=== PATIENT | female | born 1965 | race Caucasian/White ===

== ENCOUNTER 2016-05-17 07:27 | Day surgery (SDC) | payer OTHER ==
[2016-05-16 16:14] VITALS: BMI 39.2
[2016-05-17] VITALS (10 sets, daily range): BP systolic 103–129; BP diastolic 51–79; PULSE 70–86; RESP 8–41; Ht 144.8 cm; Wt 89.8 kg
[~2016-05-17] VITALS: Ht 144.8 cm; Wt 89.8 kg
[~2016-05-17 07:27] MED LIST: ALBU8.5H5 IH; ASPI81TA3 PO; ATOR40TA68 PO; AZIT250T94 PO; CETI5SOL PO; CHOL400C PO; FLUC150T41 PO; GABA300C16 PO; INSU100C SQ; INSU300I SQ; MONT10TA24 PO; OMEP20CA16 PO; SOD CHLORIDE 0.9% 1,000 ML IV ONE
[2016-05-17] MEDS ORDERED: ESCI20TA38 PO (08:58)
[2016-05-17] MEDS ORDERED: ERGO500014 PO (09:03)
[2016-05-17] MEDS ORDERED: GABA300C16 PO (09:07)
[2016-05-17] MEDS ORDERED: MOME13HF INHALATION (09:12)
[2016-05-17] MEDS ORDERED: TRAZ50TA18 PO (09:13)
[2016-05-17] MEDS ORDERED: VENL37.59 PO (09:15)
[2016-05-17] MEDS ORDERED: METF-382 PO (09:16)
[2016-05-17] MEDS ORDERED: SOD CHLORIDE 0.9% 1,000 ML IV ONE (11:00)
[2016-05-17] MEDS ORDERED: BUPIVACAINE 0.25% (MPF) 30 ML INJ ONE (12:48)
[2016-05-17] MEDS ORDERED: MIDAZOLAM 1 MG/ML 2 ML INJ ONE (13:08)
[2016-05-17] MEDS ORDERED: PROPOFOL 20 ML ONE (13:08)
[2016-05-17] MEDS ORDERED: METOCLOPRAMIDE 10 MG INJ ONE (13:11)
[2016-05-17] MEDS ORDERED: ONDANSETRON 4 MG INJ IV PRN (13:30)
[2016-05-17] MEDS ORDERED: HYDROmorphONE (0.2 MG/ML) 10ML SYG IV PRN ×3 (13:30)
[2016-05-17] MEDS ORDERED: DIPHENHYDRAMINE 50 MG INJ IV PRN (13:30)
[2016-05-17] MEDS ORDERED: MEPERIDINE 25 MG INJ IV PRN (13:30)
[2016-05-17] MEDS ORDERED: METOCLOPRAMIDE 10 MG INJ IV PRN (13:30)
[2016-05-17] MEDS ORDERED: BUPIVACAINE 0.25% (MPF) 30 ML INJ INJ ONE (13:46)
[2016-05-17] MEDS ORDERED: ACETAMINOPHEN 325 MG TAB PO ONE (14:00)
[2016-05-17] MEDS ORDERED: CEFAZOLIN 1 GM INJ ONE (14:10)
--- NOTE | 2016-05-17 14:10 | OPR ---
DATE OF OPERATION: 05/17/2016 INDICATION: This is a 51-year-old female found on mammography to have a lesion in the right breast. She requests surgical excision of her right breast lesion. Risks, alternatives, benefits, and pers onnel were discussed with the patient. Patient expressed understanding and consents to the operatio n. PREOPERATIVE DIAGNOSIS: Right breast lesion. POSTOPERATIVE DIAGNOSIS: Right breast lesion. OPERATION PERFORMED: 1. Right needle localized breast biopsy with 5 cm size incision and 4 x 5 cm size mass. 2. Localized adjacent tissue transfer with the use of skin flaps. SURGEON: Connie Dallas MD SPECIMEN: Right breast biopsy. COMPLICATIONS: None. ANESTHESIA: General. PROCEDURE: The patient was taken to the OR, prepped and draped in the usual sterile fashion. Surgi yue timeout was performed. IV antibiotics were given. Mammographic imaging is reviewed. A curvili near incision is made in the right upper areola with a 15 blade. Dissection cautery was carried ruel n following the needle and circumferentially excised with the lesion endoclip. There was good hemos tasis. Due to the large tissue defect localized tissue transfer with the use of skin flaps was perf ormed. Multilayer closure with interrupted 3-0 Vicryl and running 4-0 Monocryl. Local anesthesia w as injected. Dry dressings were applied. Dictated By: CONNIE PHELAN/FREDY Conf#: [id number] DID#: [id number]
[2016-05-17] MEDS ORDERED: morphine (1 MG/ML) 10ML SYRINGE IV ONE (14:22)
[2016-05-17] MEDS: morphine (1 MG/ML) 10ML SYRINGE IV PRN ×2 (14:28→14:39)
[2016-05-17] MEDS ORDERED: morphine (1 MG/ML) 10ML SYRINGE IV PRN ×2 (14:30)
[2016-05-17] MEDS ORDERED: HYDROCODONE/APAP (10/325) TAB PO ONE (15:30)
== END 2016-05-17 16:00 | disposition home or self-care (01) ==
LOC: SDS 07:27
PROVIDERS: ATTEND Surgery
DX: N62 Hypertrophy of breast (principal); N60.41 Mammary duct ectasia of right breast; E11.9 Type 2 diabetes mellitus without complications; I10 Essential (primary) hypertension; E66.01 Morbid (severe) obesity due to excess calories; Z68.41 Body mass index [BMI] 40.0-44.9, adult
CPT/HCPCS: 19120; 82962; 84703; 88307; J0690; J1170; J1200; J2250; J2270; J2765; Z7512; Z7610

== ENCOUNTER 2016-06-07 17:14 | Emergency (ER) | payer OTHER ==
[~2016-06-07] VITALS: Wt 90.0 kg
[~2016-06-07 17:14] MED LIST changes: -ATOR40TA68 PO; -AZIT250T94 PO; -CETI5SOL PO; -CHOL400C PO; +ERGO500014 PO; +ESCI20TA38 PO; -FLUC150T41 PO; +METF-382 PO; +MOME13HF INHALATION; -OMEP20CA16 PO; -SOD CHLORIDE 0.9% 1,000 ML IV ONE; +TRAZ50TA18 PO; +VENL37.59 PO
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
[2016-06-07] MEDS ORDERED: HYDROCODONE/APAP (5/325) TAB PO ONE (18:30)
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
--- NOTE | 2016-06-07 19:35 | RADRPT ---
PROCEDURE: XR Chest. CLINICAL INDICATION: Chest pain TECHNIQUE: Single view of the chest COMPARISON: Chest radiograph April 03, 2016 FINDINGS: The lungs are clear. The heart size is normal. There is no pleural effusion. There is no pneumothorax. There is no acute osseous abnormality. IMPRESSION: 1. No acute cardiopulmonary findings. RPTAT: UU .Juan Daniel Ozuna MD, MD Date Time Electronically viewed and signed by .Juan Daniel Ozuna MD, on 06/07/2016 19:34 .K/
[2016-06-07] MEDS ORDERED: HYDR-906 PO (21:44)
--- NOTE | 2016-06-07 21:45 | RADRPT ---
PROCEDURE: Ultrasound right breast CLINICAL INDICATION: Right breast pain. TECHNIQUE: Sonographic evaluation of the right breast was performed with avelar scale imaging. Imag es were reviewed on a high-resolution PACS workstation. COMPARISON: None available FINDINGS: Evaluation of the right breast reveals no focal fluid collection or abscess. No mass lesion is seen . No other abnormality is identified. IMPRESSION: 1. This study cannot adequately exclude the presence of breast cancer. 2. Negative right breast ultrasound. No abnormality is identified. RPTAT: HMJB .Nikita De La O MD, MD Date Time Electronically viewed and signed by .Nikita De La O MD, on 06/07/2016 21:45 .B/
[2016-06-07 22:07] VITALS: BP 117/60; PULSE 78; RESP 22; TEMP 97.8
== END 2016-06-07 22:09 | disposition home or self-care (01) ==
LOC: FTE 17:14
DX: S49.91XA Unspecified injury of right shoulder and upper arm, initial encounter (principal); S29.091A Other injury of muscle and tendon of front wall of thorax, initial encounter; J45.909 Unspecified asthma, uncomplicated; E11.9 Type 2 diabetes mellitus without complications; V49.49XA Driver injured in collision with other motor vehicles in traffic accident, initial encounter; Z79.84 Long term (current) use of oral hypoglycemic drugs; Z79.82 Long term (current) use of aspirin; Z79.4 Long term (current) use of insulin
CPT/HCPCS: 71010; 73030; 76642; Z7502; Z7610

== ENCOUNTER 2016-07-27 20:08 | Emergency (ER) | payer OTHER ==
[~2016-07-27] VITALS: Ht 149.9 cm; Wt 87.5 kg
[~2016-07-27 20:08] MED LIST changes: +HYDR-906 PO
[2016-07-27 20:36] VITALS: Ht 149.9 cm; Wt 87.5 kg
[2016-07-27] MEDS ORDERED: FAMOTIDINE 20 MG INJ IV STA (21:13)
[2016-07-27] MEDS ORDERED: SOD CHLORIDE 0.9% 1,000 ML IV STA (21:13)
[2016-07-27] MEDS ORDERED: ONDANSETRON 4 MG INJ IV STA (21:13)
[2016-07-27] MEDS ORDERED: morphine 4 MG/ML VIAL IV STA (21:13)
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
[2016-07-27 21:52] LABS: ADD SCAN DIFF NO
[2016-07-27 22:02] LABS: BASOPHILS % 0.3 % (0.0-2.0); EOSINOPHILS # 0.3 10^3/ul (0.0-0.5); EOSINOPHILS % 1.8 % (0.0-7.0); HEMATOCRIT 35.3 % (37.0-47.0); HEMOGLOBIN 10.8 g/dl (12.0-16.0); LYMPHOCYTES # 4.1 10^3/ul (0.8-2.9); LYMPHOCYTES % 27.1 % (15.0-51.0); MEAN CORPUSCULAR HEMOGLOBIN 24.3 pg (29.0-33.0); MEAN CORPUSCULAR HGB CONC 30.6 g/dl (32.0-37.0); MEAN CORPUSCULAR VOLUME 79.3 fl (82.0-101.0); MEAN PLATELET VOLUME 10.4 fl (7.4-10.4); MONOCYTE # 0.8 10^3/ul (0.3-0.9); MONOCYTES % 5.5 % (0.0-11.0); PLATELET COUNT 322 10^3/UL (140-415); RED BLOOD COUNT 4.45 10^6/ul (4.20-5.40); RED CELL DISTRIBUTION WIDTH 16.3 % (11.5-14.5); WHITE BLOOD COUNT 15.3 10^3/ul (4.8-10.8)
[2016-07-27 22:09] LABS: URINE BILIRUBIN (Dip) NEGATIVE (NEGATIVE); URINE BLOOD (Dip) NEGATIVE (NEGATIVE); URINE GLUCOSE (Dip) NEGATIVE (NEGATIVE); URINE KETONES (Dip) NEGATIVE (NEGATIVE); URINE LEUKOCYTE ESTERASE (Dip) NEGATIVE (NEGATIVE); URINE NITRITE (Dip) NEGATIVE (NEGATIVE); URINE TOTAL PROTEIN (Dip) NEGATIVE (NEGATIVE); URINE UROBILINOGEN (Dip) 0.2 E.U./dL (0.1-1.0)
[2016-07-27 22:16] LABS: ALBUMIN 3.6 g/dl (3.3-4.9)
[2016-07-27 22:17] LABS: ADD UMIC YES; POTASSIUM 3.8 mmol/L (3.5-5.1); URINE COLOR YELLOW (YELLOW)
[2016-07-27 22:19] LABS: ALBUMIN/GLOBULIN RATIO 0.87; BACTERIA,URINE MANY; BILIRUBIN,INDIRECT 0.1 mg/dl (0-1.1); BILIRUBIN,TOTAL 0.1 mg/dl (0.2-1.3); CREATININE 0.71 mg/dl (0.44-1.00); SQUAMOUS EPITHELIAL CELL,UR MANY; TOTAL PROTEIN 7.7 g/dl (6.1-8.1); URINE RBCS 0-2 /HPF (0)
[2016-07-27 22:20] LABS: CALCIUM 8.7 mg/dl (8.4-10.2)
--- NOTE | 2016-07-27 22:32 | RADRPT ---
PROCEDURE: Portable chest x-ray. CLINICAL INDICATION: Abdominal pain. TECHNIQUE: Portable AP view of the chest. COMPARISON: 06/07/2016. FINDINGS: No pulmonary edema or conolidation is identified. The cardiac silhouette is magnified. No pleural effusion is seen. There is no pneumothorax. There is no pneumoperitoneum. IMPRESSION: 1. No evidence of acute cardiopulmonary disease. 2. No pneumoperitoneum. RPTAT: HTAR .Ger Mccollum MD, MD Date Time Electronically viewed and signed by .Ger Mccollum MD, on 07/27/2016 22:31 .R/
[2016-07-27 22:51] VITALS: BP 117/68; PULSE 96; RESP 15
[2016-07-27] MEDS ORDERED: BACTDS PO (23:12)
[2016-07-27] MEDS ORDERED: ONDA4TAB8 PO (23:13)
[2016-07-27] MEDS ORDERED: TRAM50TA2 PO (23:14)
[2016-07-27] MEDS ORDERED: PHEN-538 PO (23:14)
--- NOTE | 2016-07-27 23:25 | RADRPT ---
PROCEDURE: CT abdomen and pelvis without contrast. CLINICAL INDICATION: Abdominal pain, bilateral flank pain, nausea vomiting and diarrhea TECHNIQUE: CT scan of the abdomen and pelvis without contrast was performed. Sagittal and coronal reformatted images were obtained from the axial source images. CTDI = 22.83 mGy; DLP = 1242.82 mGy- cm COMPARISON: 03/04/2015 FINDINGS: Visualized lower thorax: The lung bases are clear. There is no evidence for pleural effusion. Liver, gallbladder, pancreas and spleen: Hepatomegaly of 22 cm is again noted with diffuse severe h epatic steatosis, the liver contour is preserved. There is no evidence for a liver mass or ductal d ilatation. The gallbladder is unremarkable. No common bile duct abnormality is demonstrated. The pancreas is unremarkable. The spleen is normal in size. Adrenal glands and genitourinary system: The adrenal glands are normal bilaterally. The kidneys are normal and size, contour and attenuation with no evidence for masses, calculi or hydronephrosis. T he ureters are unremarkable. No urinary bladder abnormality is demonstrated. The uterus and adnexa are unremarkable. There is no evidence of free fluid in the cul-de-sac. Gastrointestinal system: The stomach is normal in caliber with no abnormality of significance. The small bowel is normal in caliber with no ileus, obstruction or wall thickening. The appendix is not visualized but there is no stranding of the fat in the right lower quadrant. The colon shows no ev idence for wall thickening or acute abnormality. There is no evidence for colitis or diverticulitis . Peritoneum, retroperitoneum, lymph nodes and vessels: The abdominal aorta is normal in caliber. The re is no evidence for atherosclerotic calcification. The inferior vena cava is unremarkable. There is no evidence for adenopathy or mass. There is no ascites. Osseous structures and musculoskeletal findings: There is no fracture, lytic or blastic lesion. Co pious subcutaneous adipose tissue is again noted. No muscular pathology is seen. RPTAT:HJJR IMPRESSION: 1. Stable hepatomegaly hepatic steatosis. 2. No evidence of acute intra-abdominal or intrapelvic pathology, the study is unchanged from 03/04. Franco Ruiz, Physician Date Time Electronically viewed and signed by Franco Ruiz, Physician on 07/27/2016 23:25 /
[2016-07-27] MEDS ORDERED: CEFTRIAXONE 1 GM/50 ML (PMX) 50 ML IVPB ONE (23:30)
== END 2016-07-27 23:53 | disposition home or self-care (01) ==
LOC: E/R 20:08
DX: R10.12 Left upper quadrant pain (principal); D72.829 Elevated white blood cell count, unspecified; N30.00 Acute cystitis without hematuria; E11.9 Type 2 diabetes mellitus without complications; I10 Essential (primary) hypertension; J45.909 Unspecified asthma, uncomplicated; R11.0 Nausea; Z79.4 Long term (current) use of insulin; Z79.84 Long term (current) use of oral hypoglycemic drugs; Z79.82 Long term (current) use of aspirin
CPT/HCPCS: 36415; 71010; 74176; 80053; 81001; 83690; 85025; 87086; 96374; 96375; J0696; J2270; J2405; J7030; Z7502; Z7610; 81003

== ENCOUNTER 2016-09-14 11:40 | Emergency (ER) | payer OTHER ==
[~2016-09-14] VITALS: Ht 157.5 cm; Wt 58.8 kg
[~2016-09-14 11:40] MED LIST changes: +BACTDS PO; -METF-382 PO; +METF500T4 PO; +ONDA4TAB8 PO; +PHEN-538 PO; +TRAM50TA2 PO
[2016-09-14 11:54] VITALS: Ht 157.5 cm; Wt 58.8 kg
[2016-09-14] MEDS ORDERED: ACET500C5 PO (12:23)
[2016-09-14] MEDS ORDERED: LIDOCAINE 1% (MDV) 20 ML INJ SC ONE (12:30)
[2016-09-14] MEDS ORDERED: IBUPROFEN 600 MG TAB PO ONE (12:30)
[2016-09-14] MEDS ORDERED: DIPHTH/TET/ACEL PERTUSS (ADULT) 0.5 ML VIAL IM* ONE (12:30)
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
== END 2016-09-14 12:50 | disposition home or self-care (01) ==
LOC: FTE 11:40
DX: S81.811A Laceration without foreign body, right lower leg, initial encounter (principal); I10 Essential (primary) hypertension; J45.909 Unspecified asthma, uncomplicated; E11.9 Type 2 diabetes mellitus without complications; W25.XXXA Contact with sharp glass, initial encounter; Y92.009 Unspecified place in unspecified non-institutional (private) residence as the place of occurrence of the external cause; Z79.84 Long term (current) use of oral hypoglycemic drugs; Z79.82 Long term (current) use of aspirin; Z79.4 Long term (current) use of insulin; Z23 Encounter for immunization
CPT/HCPCS: 12001; 90471; 90715; Z7502; Z7610

== ENCOUNTER 2016-09-29 23:35 | Emergency (ER) | payer SELFPAY ==
[~2016-09-29] VITALS: Ht 149.9 cm; Wt 92.5 kg
[~2016-09-29 23:35] MED LIST changes: +ACET500C5 PO
[2016-09-29 23:58] VITALS: Ht 149.9 cm; Wt 92.5 kg
== END 2016-09-30 03:36 | disposition left against medical advice (07) ==
LOC: E/R 23:35
DX: Z53.21 Procedure and treatment not carried out due to patient leaving prior to being seen by health care provider (principal)

== ENCOUNTER 2016-10-19 22:49 | Emergency (ER) | payer OTHER ==
[~2016-10-19] VITALS: Wt 90.5 kg
[2016-10-20] MEDS ORDERED: ALPRAZOLAM 0.25 MG TAB PO ONE (01:00)
[2016-10-20 02:02] LABS: ADD SCAN DIFF NO
[2016-10-20 02:08] LABS: BASOPHILS % 0.3 % (0.0-2.0); EOSINOPHILS # 0.4 10^3/ul (0.0-0.5); EOSINOPHILS % 3.4 % (0.0-7.0); HEMATOCRIT 35.9 % (37.0-47.0); LYMPHOCYTES # 4.8 10^3/ul (0.8-2.9); LYMPHOCYTES % 38.5 % (15.0-51.0); MEAN CORPUSCULAR HEMOGLOBIN 23.7 pg (29.0-33.0); MEAN CORPUSCULAR HGB CONC 30.6 g/dl (32.0-37.0); MEAN CORPUSCULAR VOLUME 77.2 fl (82.0-101.0); MONOCYTE # 0.7 10^3/ul (0.3-0.9); MONOCYTES % 5.5 % (0.0-11.0); NEUTROPHIL # 6.4 10^3/ul (1.6-7.5); NEUTROPHILS % 52.1 % (39.0-77.0); PLATELET COUNT 319 10^3/UL (140-415); RED BLOOD COUNT 4.65 10^6/ul (4.20-5.40); RED CELL DISTRIBUTION WIDTH 16.5 % (11.5-14.5); WHITE BLOOD COUNT 12.4 10^3/ul (4.8-10.8)
[2016-10-20 02:40] LABS: ALANINE AMINOTRANSFERASE 57 IU/L (13-69); ALBUMIN 4.4 g/dl (3.3-4.9); ALBUMIN/GLOBULIN RATIO 1.18; ALKALINE PHOSPHATASE 251 IU/L (42-121); ANION GAP 13 (8-16); ASPARTATE AMINO TRANSFERASE 45 IU/L (15-46); BILIRUBIN,INDIRECT 0.2 mg/dl (0-1.1); BILIRUBIN,TOTAL 0.2 mg/dl (0.2-1.3); BLOOD UREA NITROGEN 13 mg/dl (7-20); CALCIUM 9.2 mg/dl (8.4-10.2); CARBON DIOXIDE 28 mmol/L (21-31); CHLORIDE 101 mmol/L (97-110); CREATININE 0.74 mg/dl (0.44-1.00); POTASSIUM 4.2 mmol/L (3.5-5.1); SODIUM 138 mmol/L (135-144); TOTAL PROTEIN 8.1 g/dl (6.1-8.1)
[2016-10-20 02:53] LABS: B-TYPE NATRIURETIC PEPTIDE < 11 PG/ML (0-125); TROPONIN-I < 0.012 ng/ml (0.00-0.12)
[2016-10-20 02:56] LABS: GLUCOSE 425 mg/dl (70-220)
[2016-10-20] MEDS ORDERED: SOD CHLORIDE 0.9% 1,000 ML IV ONE (05:00)
[2016-10-20] MEDS ORDERED: LIDOCAINE/MYLANTA 40 ML BTL PO ONE (05:00)
[2016-10-20] MEDS ORDERED: NYSTATIN 15 GM CR TOP ONE (05:00)
[2016-10-20 05:30] VITALS: BP 114/67; PULSE 76; RESP 16
[2016-10-20] MEDS ORDERED: RANI150T9 PO (05:47)
[2016-10-20] MEDS ORDERED: NYST1POW22 TOPICAL (05:47)
[2016-10-20] MEDS ORDERED: NYST15CR28 TOP (05:47)
[2016-10-20] MEDS ORDERED: NAPR-688 PO (05:48)
[2016-10-20] MEDS ORDERED: HYDR-906 PO (05:48)
[2016-10-20] MEDS ORDERED: CEPH-443 PO (05:59)
[2016-10-20] MEDS ORDERED: FLUCONAZOLE 150 MG TAB PO ONE (06:00)
--- NOTE | 2016-10-20 06:12 | ERD ---
ER Documentation Chief Complaint Date/Time DATE: 10/20/16 TIME: 06:01 Chief Complaint Pelvic pain, vaginal bleed, anal inflamation. CP HPI This 51-year-old female comes in for burning sensation around her vaginal area and anal area. This been going on for several days now. Also complains of chest pain described as a burning sensation. She is taking omeprazole currently for this. Not sure if she has dysuria because the area the surface around her vaginal and rectal area liriano when she pees. Denies shortness of breath though she does have a history of asthma and is on inhaled beta agonists as well as inhaled steroids. No nausea or vomiting. No fever or chills. ROS All systems reviewed and are negative except as per history of present illness. Medications Home Meds Active Scripts Cephalexin* (Keflex*) 500 Mg Capsule, 500 MG PO TID for 5 Days, CAP Prov:SALLY TREVIZO DO 10/20/16 Hydrocodone/Acetaminophen (Rising Sun 5-325 Tablet) 1 Each Tablet, 1 EACH PO Q6, #14 TAB Prov:SALLY TREVIZO DO 10/20/16 Naproxen* (Naproxen*) 500 Mg Tablet, 500 MG PO BID Y for PAIN, #14 TAB Prov:SALLY TREVIZO DO 10/20/16 Ranitidine Hcl* (Zantac*) 150 Mg Tablet, 150 MG PO BID, #60 TAB Prov:SALLY TREVIZO DO 10/20/16 Nystatin (Nystatin Powder) 1 Each Powder.ea., 1 APPLIC TOPICAL BID, #1 BOTTLE Prov:SALLY TERVIZO DO 10/20/16 Nystatin* (Nystatin*) 15 Gm Cr, 1 APPLIC TOP TID for 7 Days, TUB Prov:SALLY TREVIZO DO 10/20/16 Acetaminophen* (Tylophen*) 500 Mg Capsule, 1 CAP PO Q6H Y for PAIN AND OR ELEVATED TEMP, #20 CAP Prov:DIANE RODNEY NP 09/14/16 Phenazopyridine Hcl* (Pyridium*) 200 Mg Tab, 200 MG PO TID Y for URINARY PAIN, # 9 TAB 0 Refills Prov:SHARIF NOYOLA 07/27/16 Tramadol HCl (Tramadol HCl) 50 Mg Tablet, 100 MG PO Q6 Y for PAIN, #20 TAB 0 Refills Prov:SHARIF NOYOLA 07/27/16 Ondansetron Hcl* (Zofran*) 4 Mg Tablet, 4 MG PO Q8, #20 TAB 0 Refills Prov:SHARIF NOYOLA 07/27/16 Sulfamethoxazole-Trimethoprim* (Bactrim* DS) 800-160 Mg Tab, 1 TAB PO DAILY for 7 Days, TAB 0 Refills Prov:SHAIRF NOYOLA 07/27/16 Hydrocodone/Acetaminophen (Rising Sun 5-325 Tablet) 1 Each Tablet, 1 EACH PO Q6, #10 TAB Prov:GALINA MOCTEZUMA PA-C 06/07/16 Reported Medications Metformin Hcl* (Metformin Hcl*) 500 Mg Tablet, 500 MG PO WITH BREAKFAST DINNE, # 30 TAB 05/17/16 Venlafaxine Hcl* (Effexor XR*) 37.5 Mg Tab.er.24, 37.5 MG PO TID, TAB 05/17/16 Trazodone Hcl* (Trazodone Hcl*) 50 Mg Tablet, 25 MG PO QHS, #30 TAB 05/17/16 Mometasone-Formoterol (Dulera) 200-5 Mcg/Inh - 13 Gm Hfa.aer.ad, 2 PUFFS INHALATION BID, #1 INHALER 05/17/16 Gabapentin* (Gabapentin*) 300 Mg Capsule, 300 MG PO QHS, #60 CAP 05/17/16 Ergocalciferol* (Drisdol* (Vitamin D2)) 50,000 Unit Capsule, 59463 UNIT PO Q7D, CAP 05/17/16 Escitalopram Oxalate* (Escitalopram Oxalate*) 20 Mg Tablet, 20 MG PO DAILY, #30 TAB 05/17/16 Insulin Glargine,Hum.rec.anlog (Tousamuel Solostar) 300 Unit/1 Ml Insuln.pen, 72 UNIT SQ QHS 04/03/16 Insulin Lispro (Humalog) 100 Unit/1 Ml Cartridge, 16 UNIT SQ BEFORE MEALS 04/03/16 Montelukast Sodium* (Montelukast Sodium*) 10 Mg Tablet, 10 MG PO QHS, #30 TAB 04/03/16 Albuterol Sulfate* (Albuterol Sulfate* HFA) 8.5 Gm Hfa.aer.ad, 2 PUFF IH Q6, EA 04/02/14 Aspirin* (Aspirin* Chew) 81 Mg Tab.chew, 81 MG PO DAILY, TAB.CHEW 11/13/13 Allergies Allergies: Coded Allergies: hydromorphone (Verified Allergy, Intermediate, ITCHING, 05/17/16) celecoxib (Verified Allergy, Unknown, SOB, 05/17/16) ciprofloxacin (Unverified Allergy, Unknown, RASH, 05/17/16) PMhx/Soc History of Surgery: Yes (APPY,C SECTION X1,COLONOSCOPY,UPPER ENDOSCOPY, ANGIOGRAM) Anesthesia Reaction: No Hx Neurological Disorder: No Hx Respiratory Disorders: Yes (ASTHMA, BRONCHITIS, PNEUMONIA) Hx Cardiac Disorders: Yes (DC, HTN, HIGH CHOLESTEROL) Hx Psychiatric Problems: Yes (PANIC ATTACK) Hx Miscellaneous Medical Probl: Yes (DM) Hx Alcohol Use: No Hx Substance Use: No Hx Tobacco Use: No Smoking Status: Never smoker Physical Exam Vitals Vital Signs Date Time Temp Pulse Resp B/P Pulse Ox O2 Delivery O2 Flow Rate FiO2 10/20/16 05:30 76 16 114/67 100 Nasal Cannula 10/20/16 04:00 86 20 114/67 100 Nasal Cannula 4.0 10/20/16 03:00 83 20 112/74 97 Room Air 10/20/16 02:41 88 16 106/75 99 Nasal Cannula 3.0 10/20/16 01:20 Nasal Cannula 3 10/19/16 23:29 99.2 95 22 122/73 96 Physical Exam Const: [] No distress Head: Atraumatic Eyes: Normal Conjunctiva ENT: Normal External Ears, Nose and Mouth. Neck: Full range of motion..~ No meningismus. Resp: Clear to auscultation bilaterally Cardio: Regular rate and rhythm, no murmurs Abd: Soft, very mild epigastric tenderness without guarding or rebound, non distended. Normal bowel sounds Genital/rectal exam: Erythematous rash with satellite lesions consistent with Louise shunting skin of vagina and anus. No discharge. Back: No midline or flank tenderness Ext: No cyanosis, or edema Neur: Awake and alert and oriented 3, no focal deficits Psych: Normal Mood and Affect Result Diagram: 10/20/16 0134 10/20/16 0134 Results 24 hrs Laboratory Tests Test 10/20/16 01:34 10/20/16 05:57 White Blood Count 12.410^3/ul Red Blood Count 4.6510^6/ul Hemoglobin 11.0g/dl Hematocrit 35.9% Mean Corpuscular Volume 77.2fl Mean Corpuscular Hemoglobin 23.7pg Mean Corpuscular Hemoglobin Concent 30.6g/dl Red Cell Distribution Width 16.5% Platelet Count 08582^3/UL Mean Platelet Volume 10.0fl Neutrophils % 52.1% Lymphocytes % 38.5% Monocytes % 5.5% Eosinophils % 3.4% Basophils % 0.3% Nucleated Red Blood Cells % 0.0/100WBC Neutrophils # 6.410^3/ul Lymphocytes # 4.810^3/ul Monocytes # 0.710^3/ul Eosinophils # 0.410^3/ul Basophils # 0.010^3/ul Nucleated Red Blood Cells # 0.010^3/ul Sodium Level 138mmol/L Potassium Level 4.2mmol/L Chloride Level 101mmol/L Carbon Dioxide Level 28mmol/L Anion Gap 13 Blood Urea Nitrogen 13mg/dl Creatinine 0.74mg/dl Glucose Level 425mg/dl Calcium Level 9.2mg/dl Total Bilirubin 0.2mg/dl Direct Bilirubin 0.00mg/dl Indirect Bilirubin 0.2mg/dl Aspartate Amino Transf (AST/SGOT) 45IU/L Alanine Aminotransferase (ALT/SGPT) 57IU/L Alkaline Phosphatase 251IU/L Troponin I < 0.012ng/ml B-Type Natriuretic Peptide < 11PG/ML Total Protein 8.1g/dl Albumin 4.4g/dl Globulin 3.70g/dl Albumin/Globulin Ratio 1.18 Bedside Glucose 325mg/dL Current Medications Medications (Trade) Dose Ordered Sig/Nj Route PRN Reason Start Time Stop Time Status Last Admin Dose Admin Alprazolam (Xanax) 0.5 mg ONCE ONCE PO 10/20/16 01:00 10/20/16 01:01 DC 10/20/16 01:41 Nystatin 1 applic 1 applic ONCE ONCE TOP 10/20/16 05:00 10/20/16 05:01 DC 10/20/16 04:54 Sodium Chloride (NS) 1,000 ml @ 1,000 mls/hr Q1H ONCE IV 10/20/16 05:00 10/20/16 05:59 DC 10/20/16 04:51 Miscellaneous Medication (Gi Cocktail (2)) 40 ml ONCE ONCE PO 10/20/16 05:00 10/20/16 05:01 DC 10/20/16 04:51 Procedures/MDM Chest pain without signs of ischemia along with candidal rash and diabetic hyperglycemia. Patient was unable to provide a urine sample because she urinated without collecting it twice. Is given a liter of normal saline emergency room after which her sugar was Colt down by 100. She was then given additional liter of fluid. She has diabetic medication at home. States that she has a follow-up appoint with her medical office professional instructor as they did remove some polyps during colonoscopy recently. Nystatin cream was applied in the emergency room and she was given Diflucan tablet. They are unable to collect the urine and she has a mildly elevated white blood cell count with some dysuria I am going to discharge her with Keflex as well. Also discharging with nystatin cream, nystatin powder, naproxen and Rising Sun. Follow-up with primary care doctor and medical office professional instructor. Return precautions given. EKG interpretation: Normal sinus rhythm rate of 99, normal axis, no ST or T- wave changes concerning for acute ischemia, normal intervals. Normal EKG bag loader interpretation: Normal sinus rhythm without arrhythmia Chest x-ray interpretation: I see no acute process, no widened mediastinum, no pneumothorax, no infiltrates, no pulmonary edema, no fractures. Departure Diagnosis: Primary Impression: Louise rash of groin Additional Impressions: Chest pain Hyperglycemia due to type 2 diabetes mellitus Condition: Stable Patient Instructions: Louise Skin Infection (Adult), Chest Pain, Uncertain Cause, Diabetic Hyperglycemia Additional Instructions: Llame al doctor MASHAKEEL y zayda lori LAVONNE PARA DENTRO DE 2-3 NI.Dgale a la secretaria que nosotros le instruimos hacer esta lavonne.Avise o llame si maxwell condicin se empeora antes de la lavonne. Regresa aqui si peor o no mejor. SALLY TREVIZO DO Oct 20, 2016 06:12
--- NOTE | 2016-10-20 06:56 | RADRPT ---
PROCEDURE: CHEST - 1 VIEW CLINICAL INDICATION: 51-year-old female with chest pain. TECHNIQUE: A single frontal AP portable view of the chest was performed. The images were reviewed on a PACS workstation. COMPARISON: Chest x-ray July 27, 2016. FINDINGS: The cardiomediastinal silhouette has a normal appearance. There is no evidence for an infiltrate. There is no evidence for congestive heart failure. There is no evidence for pneumothorax. The osseou s structures are intact. IMPRESSION: No evidence for active cardiopulmonary disease. .Jeronimo Avalos MD, MD Date Time Electronically viewed and signed by .Jeronimo Avalos MD, on 10/20/2016 06:56 .M/
== END 2016-10-20 06:34 | disposition home or self-care (01) ==
LOC: E/R 22:49
DX: B37.89 Other sites of candidiasis (principal); R07.9 Chest pain, unspecified; E11.65 Type 2 diabetes mellitus with hyperglycemia; J45.909 Unspecified asthma, uncomplicated; I10 Essential (primary) hypertension; Z79.4 Long term (current) use of insulin; Z79.84 Long term (current) use of oral hypoglycemic drugs; Z79.82 Long term (current) use of aspirin
CPT/HCPCS: 71010; 80053; 82962; 83880; 84484; 85025; J7030; Z7610; 36415; 93005

== ENCOUNTER 2016-12-30 17:15 | Emergency (ER) | payer OTHER ==
[~2016-12-30] VITALS: Ht 154.9 cm; Wt 87.0 kg
[~2016-12-30 17:15] MED LIST changes: +ACYC800T57 PO; +ALBU8.5H3 INH; +AMIT10TA6 PO; +AMO500 PO; +ATOR40TA68 PO; +AZIT250T94 PO; +BENZ100C70 PO; +CAPT25TA3 PO; +CAPT25TA47; +CAPTOPRIL PO; +CEFU500T PO; +CEPH-443 PO; +CETI10CA PO; +CETI5SOL PO; +CHOL400C PO; +CIPR500T4 PO; +CLOT10TR6 MM; +CYCL-319 PO; +DICY10CA60 PO; +DOCU-144 PO; +FLUC10SU2 PO; +FLUC150T41 PO; +FLUCONAZOLE; +FLUT1DIS22 IH; +HYDR-1049 PO; +HYDR-3498 PO; +IBUP-1542 PO; +IBUP400T22 PO; +IBUPROFEN; +IND10 PO; +IPRA14.76; +LAMO100T83 PO; +LEVEM SC; +LEVO500T72; +LEVO500T72 PO; +LORA-408 PO; +LORA10TA3 PO; +LORAZEPAM; +METF-405 PO; +METF500T3; +METF850T PO; +METR500T PO; +NAPR-260 PO; +NAPR-688 PO; +NIT4 SL; +NYST15CR28 TOP; +NYST1POW22 TOPICAL; +NYSTATIN; +OMEP20CA16 PO; +ONDA4TAB35 PO; +OXCA150T43 PO; +OXYC-279 PO; +PANT40TA3 PO; +PRED10TA PO; +RANI150T9 PO; +[UNRECOGNIZED DRUG - CODE] PO; +[UNRECOGNIZED DRUG - CODE] TP
[2016-12-30 17:20] VITALS: Ht 154.9 cm; Wt 87.0 kg
[2016-12-30] MEDS ORDERED: ONDANSETRON (ODT) 4 MG TAB ODT STA (18:10)
[2016-12-30] MEDS ORDERED: KETOROLAC 30 MG INJ IM STA (18:10)
[2016-12-30] MEDS ORDERED: HYDROCODONE/APAP (5/325) TAB PO ONE (18:30)
[2016-12-30] MEDS ORDERED: DEXAMETHASONE 10 MG/ML 1 ML INJ IM ONE (18:30)
[2016-12-30] MEDS ORDERED: NAPR-260 PO (19:12)
[2016-12-30] MEDS ORDERED: HYDR-906 PO (19:13)
[2016-12-30 19:38] VITALS: BP 134/72; PULSE 75; RESP 18; TEMP 98.3
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
== END 2016-12-30 19:30 | disposition home or self-care (01) ==
LOC: MERGE 17:15 → FTE 17:15
DX: M54.9 Dorsalgia, unspecified (principal); M25.50 Pain in unspecified joint; E11.9 Type 2 diabetes mellitus without complications; I10 Essential (primary) hypertension; J45.909 Unspecified asthma, uncomplicated; Z79.4 Long term (current) use of insulin
CPT/HCPCS: 93005; 96372; J1100; J1885; Z7502; Z7610

== ENCOUNTER 2017-04-04 18:53 | Emergency (ER) | payer OTHER ==
[~2017-04-04] VITALS: Ht 160 cm; Wt 85.6 kg
[~2017-04-04 18:53] MED LIST changes: -ACYC800T57 PO; -AMIT10TA6 PO; -AMO500 PO; -ATOR40TA68 PO; -BENZ100C70 PO; -CAPT25TA3 PO; -CAPT25TA47; -CAPTOPRIL PO; -CEFU500T PO; -CETI10CA PO; -CETI5SOL PO; -CHOL400C PO; -CIPR500T4 PO; -CLOT10TR6 MM; -CYCL-319 PO; -DOCU-144 PO; -FLUC10SU2 PO; -FLUC150T41 PO; -FLUCONAZOLE; -FLUT1DIS22 IH; -HYDR-3498 PO; -IBUP-1542 PO; -IBUP400T22 PO; -IBUPROFEN; -IND10 PO; -IPRA14.76; -LAMO100T83 PO; -LEVO500T72; -LEVO500T72 PO; -LORA-408 PO; -LORA10TA3 PO; -LORAZEPAM; -METF-405 PO; -METF500T3; -METF850T PO; -NIT4 SL; -NYSTATIN; -OMEP20CA16 PO; -ONDA4TAB35 PO; -OXCA150T43 PO; -OXYC-279 PO; -PANT40TA3 PO; -PRED10TA PO; -[UNRECOGNIZED DRUG - CODE] PO; -[UNRECOGNIZED DRUG - CODE] TP
[2017-04-04 19:04] VITALS: Ht 160 cm; Wt 85.6 kg
[2017-04-04] MEDS ORDERED: HYDROCODONE/APAP (5/325) TAB PO ONE (22:00)
[2017-04-04 22:20] LABS: ADD UMIC NO; UR ASCORBIC ACID NEGATIVE (NEGATIVE); UR BILIRUBIN (Dip) NEGATIVE (NEGATIVE); UR BLOOD (Dip) NEGATIVE (NEGATIVE); UR CLARITY CLEAR (CLEAR); UR COLOR YELLOW (YELLOW); UR GLUCOSE (Dip) NEGATIVE (NEGATIVE); UR KETONES (Dip) NEGATIVE (NEGATIVE); UR LEUKOCYTE ESTERASE (Dip) NEGATIVE Leu/ul (NEGATIVE); UR NITRITE (Dip) NEGATIVE (NEGATIVE); UR SPECIFIC GRAVITY (Dip) 1.016 (1.003-1.030); UR TOTAL PROTEIN (Dip) NEGATIVE (NEGATIVE); UR UROBILINOGEN (Dip) NEGATIVE (NEGATIVE)
[2017-04-04] MEDS ORDERED: ACET500C5 PO (22:24)
--- NOTE | 2017-04-04 22:44 | ERD ---
ER Documentation Chief Complaint Chief Complaint right shoulder pain, back pain, right foot pain HPI Patient is a 51-year-old female with a past medical history of hypertension, hyperlipidemia, DM type II, showed arthritis, RA, osteoporosis, endometriosis, status post appendectomy presents to the emergency department for concerns of right shoulder pain, right upper back pain and right foot pain. Patient states her symptoms have been ongoing since May 2016. Patient has been seen in the ED for similar complaints in the past. At patient's last visit in December 2016 she stated that she was awaiting an MRI. Patient recently underwent MRI which she brings with her which shows a 5 mm tear of the supraspinatus tendon and fraying of the biceps labral anchor, extensive degenerative tearing through the superior labrum. She also brings in a copy of her MRI of her ankle which shows a large chronic osteochondral injury in the medial talar dome. No displaced or unstable fragments are identified. Patient also had moderate plantar fasciitis. Patient states that her right shoulder pain, right upper back pain and right foot pain are all worse with movement. Patient reports taking tramadol at home for her symptoms. Patient states this medication just makes her sleepy. Patient is compliant with her insulin regimen. Patient denies any abdominal pain, chest pain, shortness of breath, nausea, vomiting, left upper extremity pain, diaphoresis, loss of consciousness. She denies any new falls or trauma to the affected areas. Denies any homicidal or suicidal ideations at this time. Patient does report "water in my uterus" for the last 5 weeks. Patient also reports pain with urination and urinary frequency, however she denies any hematuria. ROS All systems reviewed and are negative except as per history of present illness. Medications Home Meds Active Scripts Acetaminophen* (Tylophen*) 500 Mg Capsule, 1 CAP PO Q6H Y for PAIN AND OR ELEVATED TEMP, #20 CAP Prov:MARIANNA JOHNSON PA-C 04/04/17 Hydrocodone/Acetaminophen ([place] 5-325 Tablet) 1 Each Tablet, 1 TAB PO Q6H Y for PAIN, #12 TAB Prov:LIS ALEJANDRE PA-C 12/30/16 Naproxen* (Naprosyn*) 500 Mg Tablet, 500 MG PO BID Y for PAIN AND/OR INFLAMMATION, #30 TAB Prov:LIS ALEJANDRE PA-C 12/30/16 Cephalexin* (Keflex*) 500 Mg Capsule, 500 MG PO TID for 5 Days, CAP Prov:SALLY TREVIZO DO 10/20/16 Hydrocodone/Acetaminophen ([place] 5-325 Tablet) 1 Each Tablet, 1 EACH PO Q6, #14 TAB Prov:SALLY TREVIZO DO 10/20/16 Naproxen* (Naproxen*) 500 Mg Tablet, 500 MG PO BID Y for PAIN, #14 TAB Prov:SALLY TREVIZO DO 10/20/16 Ranitidine Hcl* (Zantac*) 150 Mg Tablet, 150 MG PO BID, #60 TAB Prov:SALLY TREVIZO DO 10/20/16 Nystatin (Nystatin Powder) 1 Each Powder.ea., 1 APPLIC TOPICAL BID, #1 BOTTLE Prov:SALLY TREVIZO DO 10/20/16 Nystatin* (Nystatin*) 15 Gm Cr, 1 APPLIC TOP TID for 7 Days, TUB Prov:SALLY TREVIZO DO 10/20/16 Acetaminophen* (Tylophen*) 500 Mg Capsule, 1 CAP PO Q6H Y for PAIN AND OR ELEVATED TEMP, #20 CAP Prov:DIANE RODNEY NP 09/14/16 Dicyclomine Hcl* (Bentyl*) 10 Mg Capsule, 10 MG PO QID, #20 CAP Prov:JHONY MAN PA-C 08/02/16 Phenazopyridine Hcl* (Pyridium*) 200 Mg Tab, 200 MG PO TID Y for URINARY PAIN, # 9 TAB 0 Refills Prov:SHARIF NOYOLA 07/27/16 Tramadol HCl (Tramadol HCl) 50 Mg Tablet, 100 MG PO Q6 Y for PAIN, #20 TAB 0 Refills Prov:SHARIF NOYOLA 07/27/16 Ondansetron Hcl* (Zofran*) 4 Mg Tablet, 4 MG PO Q8, #20 TAB 0 Refills Prov:SHARIF NOYOLA 07/27/16 Sulfamethoxazole-Trimethoprim* (Bactrim* DS) 800-160 Mg Tab, 1 TAB PO DAILY for 7 Days, TAB 0 Refills Prov:SHARIF NOYOLA 07/27/16 Hydrocodone/Acetaminophen ([place] 5-325 Tablet) 1 Each Tablet, 1 EACH PO Q6, #10 TAB Prov:GALINA MOCTEZUMA PA-C 06/07/16 Acetaminophen* (Tylophen*) 500 Mg Capsule, 2 CAP PO Q8H Y for PAIN AND OR ELEVATED TEMP, #20 CAP Prov:KENNY FIORE C 03/17/16 Azithromycin* (Zithromax*) 250 Mg Tablet, 250 MG PO .ZPACK DIRECTED, #6 TAB TAKE 500 MG (2 TABS) THE FIRST DAY THEN 250 MG (1 TAB) DAYS 2-5 Prov:MACARENAKENNY BHAT C 03/17/16 Metronidazole* (Flagyl*) 500 Mg Tablet, 500 MG PO TID for 7 Days, TAB Prov:CATHERINE VALENTIN DO 02/02/16 Hydrocodone/Ibuprofen (Vicoprofen 200-7.5 MG) 1 Each Tablet, 2 TAB PO Q6H Y for PAIN, #20 TAB Prov:CATHERINE VALENTIN DO 02/02/16 Reported Medications Metformin Hcl* (Metformin Hcl*) 500 Mg Tablet, 500 MG PO WITH BREAKFAST DINNE, # 30 TAB 05/17/16 Venlafaxine Hcl* (Effexor XR*) 37.5 Mg Tab.er.24, 37.5 MG PO TID, TAB 05/17/16 Trazodone Hcl* (Trazodone Hcl*) 50 Mg Tablet, 25 MG PO QHS, #30 TAB 05/17/16 Mometasone-Formoterol (Dulera) 200-5 Mcg/Inh - 13 Gm Hfa.aer.ad, 2 PUFFS INHALATION BID, #1 INHALER 05/17/16 Gabapentin* (Gabapentin*) 300 Mg Capsule, 300 MG PO QHS, #60 CAP 05/17/16 Ergocalciferol* (Drisdol* (Vitamin D2)) 50,000 Unit Capsule, 73341 UNIT PO Q7D, CAP 05/17/16 Escitalopram Oxalate* (Escitalopram Oxalate*) 20 Mg Tablet, 20 MG PO DAILY, #30 TAB 05/17/16 Insulin Glargine,Hum.rec.anlog (Debbie Sherwood) 300 Unit/1 Ml Insuln.pen, 72 UNIT SQ QHS 04/03/16 Insulin Lispro (Humalog) 100 Unit/1 Ml Cartridge, 16 UNIT SQ BEFORE MEALS 04/03/16 Montelukast Sodium* (Montelukast Sodium*) 10 Mg Tablet, 10 MG PO QHS, #30 TAB 04/03/16 Gabapentin* (Gabapentin*) 300 Mg Capsule, 600 MG PO QPM, #180 CAP 02/02/16 Gabapentin* (Gabapentin*) 300 Mg Capsule, 300 MG PO QAM, #60 CAP 02/02/16 Albuterol Sulfate* (Proair HFA*) 8.5 Gm Hfa.aer.ad, 2 PUFF INH Q4H Y for WHEEZING AND SOB, #1 INHALER 02/02/16 Insulin Detemir (Levemir) 100 Unit/1 Ml Vial, 16 UNIT SC TID, VIAL 02/02/16 Insulin Glargine,Hum.rec.anlog (Tousamuel Solostar) 300 Unit/1 Ml Insuln.pen, 72 UNIT SQ QPM 02/02/16 Albuterol Sulfate* (Albuterol Sulfate* HFA) 8.5 Gm Hfa.aer.ad, 2 PUFF IH Q6, EA 04/02/14 Aspirin* (Aspirin* Chew) 81 Mg Tab.chew, 81 MG PO DAILY, TAB.CHEW 11/13/13 Allergies Allergies: Coded Allergies: hydromorphone (Verified Allergy, Intermediate, ITCHING, 05/17/16) celecoxib (Verified Allergy, Unknown, SOB, 05/17/16) ciprofloxacin (Unverified Allergy, Unknown, RASH, 05/17/16) PMhx/Soc History of Surgery: Yes (endometriosis, cesarian section, APPY) Anesthesia Reaction: No Hx Neurological Disorder: No Hx Respiratory Disorders: Yes (asthma) Hx Cardiac Disorders: Yes (htn, HIGH CHOL) Hx Psychiatric Problems: Yes (depression, anxiety) Hx Miscellaneous Medical Probl: Yes (osteoarthritis, rheumatoid arthritis, osteoporosis, dm, POLYS) Hx Alcohol Use: No Hx Substance Use: No Hx Tobacco Use: No Smoking Status: Never smoker Physical Exam Vitals Vital Signs Date Time Temp Pulse Resp B/P Pulse Ox O2 Delivery O2 Flow Rate FiO2 04/04/17 19:04 98.2 101 20 126/78 98 Physical Exam GENERAL: Well-developed, well-nourished female. Mild distress secondary to pain. HEAD: Normocephalic, atraumatic. EYES: Pupils are equally reactive bilaterally. EOMs grossly intact. No conjunctival erythema. ENT: Moist mucous membranes. No uvula deviation. No kissing tonsils. NECK: Supple. No meningismus. Normal range of motion of the neck. Tender palpation of the right trapezius muscle minimal palpation.. LUNG: Clear to auscultation bilaterally. No rhonchi, wheezing, rales or coarse breath sounds. HEART: Regular rate and rhythm. No murmurs, rubs or gallops. BACK: No midline tenderness. Tender to palpation of the right trapezius muscle with minimal palpation. EXTREMITIES: Equal pulses bilaterally. No peripheral clubbing, cyanosis or edema. Decrease passive and active range of motion of the right shoulder secondary to pain. No obvious deformity or dislocation noted. NEUROLOGIC: Alert and oriented. Moving all four extremities without any difficulty. Normal speech. Steady gait. SKIN: Normal color. Warm and dry. No rashes or lesions. Results 24 hrs Laboratory Tests Test 04/04/17 21:45 04/04/17 21:50 Bedside Glucose 169mg/dL Urine Color YELLOW Urine Clarity CLEAR Urine pH 5.0 Urine Specific [place] 1.016 Urine Ketones NEGATIVEmg/dL Urine Nitrite NEGATIVEmg/dL Urine Bilirubin NEGATIVEmg/dL Urine Urobilinogen NEGATIVEmg/dL Urine Leukocyte Esterase NEGATIVELeu/ul Urine Hemoglobin NEGATIVEmg/dL Urine Glucose NEGATIVEmg/dL Urine Total Protein NEGATIVEmg/dl Current Medications Medications (Trade) Dose Ordered Sig/Nj Route PRN Reason Start Time Stop Time Status Last Admin Dose Admin Acetaminophen/ Hydrocodone Bitart ([place] (5/325)) 1 tab ONCE ONCE PO 04/04/17 22:00 04/04/17 22:01 DC 04/04/17 21:55 Procedures/MDM ED COURSE: The patient was stable throughout ED course. I kept the patient and/or family informed of laboratory and diagnostic imaging results throughout the ED course. MEDICATIONS GIVEN: Arboles Patient tolerated medication well with no adverse reactions. MEDICAL DECISION MAKING: Patient is a 51-year-old female presents with right shoulder pain, right foot pain and right upper back pain intermittently for the last 8-9 months.. Vital signs were reviewed. Patient is afebrile. Patient was not hypoxic. Patient was hemodynamically stable. Patient recently underwent an MRI of her right shoulder as well as right foot which showed no acute findings. Patient was noted to have many chronic changes. A copy of the MRI reports was obtained and will be scanned into the patient's chart. Patient denied any chest pain, shortness of breath, nausea, vomiting or loss of consciousness. Patient denied any new falls or trauma. 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 Patient was advised that she should discuss surgical repair options with an orthopedic surgeon.. Patient was given Arboles here in the ED. Patient reported improvement in pain upon reevaluation. Patient's glucose was also checked. Patient's glucose is noted to be 169. Low suspicion for DKA at this time. Patient's urine was also checked given that she had urinary symptoms. UA was negative. Low suspicion for UTI versus pyelonephritis, nephrolithiasis. At this time of the patient's presentation is most consistent with chronic right shoulder pain and chronic right foot pain. Low suspicion for acute fracture or dislocation. 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 PRESCRIPTION: Tylenol DISCHARGE: At this time, patient is stable for discharge and outpatient management. I have instructed the patient to follow-up with his/her primary care physician in 1-2 days. I have discussed with the patient the possibility of needing to see a specialist for further workup and imaging studies if symptoms persist. I have instructed the patient to promptly return to the ER for any new or worsening symptoms including increased pain, fever, nausea, vomiting, weakness or LOC. The patient and/or family expressed understanding of and agreement with this plan. All questions were answered. Home care instructions were provided. Departure Diagnosis: Primary Impression: Chronic right shoulder pain Additional Impressions: Right foot pain Trapezius strain Encounter type: subsequent encounter Laterality: right Qualified Code: S46.811D - Strain of right trapezius muscle, subsequent encounter Condition: Stable Patient Instructions: What Is Endometriosis?, Chronic Pain Referrals: [facility]G [facility] YOU HAVE RECEIVED A MEDICAL SCREENING EXAM AND THE RESULTS INDICATE THAT YOU DO NOT HAVE A CONDITION THAT REQUIRES URGENT TREATMENT IN THE EMERGENCY DEPARTMENT. FURTHER EVALUATION AND TREATMENT OF YOUR CONDITION CAN WAIT UNTIL YOU ARE SEEN IN YOUR DOCTORS OFFICE WITHIN THE NEXT 1-2 DAYS. IT IS YOUR RESPONSIBILITY TO MAKE AN APPOINTMENT FOR FOLOW-UP CARE. IF YOU HAVE A PRIMARY DOCTOR --you should call your primary doctor and schedule an appointment IF YOU DO NOT HAVE A PRIMARY DOCTOR YOU CAN CALL OUR PHYSICIAN REFERRAL HOTLINE AT IF YOU CAN NOT AFFORD TO SEE A PHYSICIAN YOU CAN CHOSE FROM THE FOLLOWING [facility] [address] [facility] [address] [facility] [address] [facility] [address] [facility]. [facility] [address] [facility]. [facility] [address] [facility]. [facility] YOU HAVE RECEIVED A MEDICAL SCREENING EXAM AND THE RESULTS INDICATE THAT YOU DO NOT HAVE A CONDITION THAT REQUIRES URGENT TREATMENT IN THE EMERGENCY DEPARTMENT. FURTHER EVALUATION AND TREATMENT OF YOUR CONDITION CAN WAIT UNTIL YOU ARE SEEN IN YOUR DOCTORS OFFICE WITHIN THE NEXT 1-2 DAYS. IT IS YOUR RESPONSIBILITY TO MAKE AN APPOINTMENT FOR FOLOW-UP CARE. IF YOU HAVE A PRIMARY DOCTOR --you should call your primary doctor and schedule and appointment IF YOU DO NOT HAVE A PRIMARY DOCTOR YOU CAN CALL OUR PHYSICIAN REFERRAL HOTLINE AT . 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 ACEVEDO, DUNL[place] [address] [place], [place] [phone] DR MARCIAL, [facility] [address] [facility], [address] [address] [address] CASTREJON, GILBERTO [address] [place], [place] [phone] [facility] [address] [place], [place] [address] [address] [facility] [id number] - DR BEAVER, NOEMI [address], [facility] [phone] CARNEY, ROBERT [address] [facility]. [address], [facility] [address] [address] CAMACHO, [facility] [address] [place], [place] [phone] Additional Instructions: Llame al doctor/ doctor de pain MAANA y zayda lori LAVONNE PARA DENTRO DE 1-2 NI.D gale a la secretaria que nosotros le instruimos hacer esta lavonne.Avise o llame si maxwell condicin se empeora antes de la lavonne. Regresa aqui si peor o no mejor. MARIANNA JOHNSON PA-C Apr 04, 2017 22:44
== END 2017-04-04 22:52 | disposition home or self-care (01) ==
LOC: FTE 18:53
DX: M25.511 Pain in right shoulder (principal); S46.811D Strain of other muscles, fascia and tendons at shoulder and upper arm level, right arm, subsequent encounter; M79.671 Pain in right foot; I10 Essential (primary) hypertension; J45.909 Unspecified asthma, uncomplicated; X58.XXXD Exposure to other specified factors, subsequent encounter; Z79.4 Long term (current) use of insulin; Z79.82 Long term (current) use of aspirin
CPT/HCPCS: 81003; 82962; 87086; Z7502; Z7610; 99283

== ENCOUNTER 2017-06-02 21:21 | Emergency (ER) | END 2017-06-03 02:58 | disposition left against medical advice (07) ==

== ENCOUNTER 2017-06-07 19:04 | Emergency (ER) | END 2017-06-07 21:47 | disposition home or self-care (01) ==

== ENCOUNTER 2017-07-17 07:35 | Day surgery (SDC) | END 2017-07-17 16:18 | disposition home or self-care (01) ==

== ENCOUNTER 2017-07-30 22:02 | Emergency (ER) | END 2017-07-31 00:13 | disposition home or self-care (01) ==

== ENCOUNTER 2017-08-29 06:20 | Day surgery (SDC) | END 2017-08-29 13:15 | disposition home or self-care (01) ==

== ENCOUNTER 2017-09-04 17:53 | Emergency (ER) | END 2017-09-04 22:25 | disposition left against medical advice (07) ==

== ENCOUNTER 2017-10-08 19:15 | Emergency (ER) | END 2017-10-08 23:26 | disposition home or self-care (01) ==

== ENCOUNTER 2017-11-14 01:26 | Emergency (ER) | END 2017-11-14 04:45 | disposition home or self-care (01) ==

== ENCOUNTER 2017-11-19 23:11 | Emergency (ER) | END 2017-11-20 07:00 | disposition home or self-care (01) ==

== ENCOUNTER 2017-11-30 15:00 | Emergency (ER) | END 2017-11-30 18:02 | disposition home or self-care (01) ==

== ENCOUNTER 2017-12-01 12:20 | Emergency (ER) | END 2017-12-01 14:22 | disposition home or self-care (01) ==

== ENCOUNTER 2017-12-08 17:29 | Emergency (ER) | END 2017-12-08 21:39 | disposition home or self-care (01) ==

== ENCOUNTER → 2018-01-05 | Emergency (ER) | END | disposition left against medical advice (07) ==

== ENCOUNTER 2018-02-15 20:42 | Inpatient (IN) | END 2018-02-20 11:10 | disposition home or self-care (01) | DRG 439 ==

== ENCOUNTER 2018-02-27 00:02 | Emergency (ER) | END 2018-02-27 05:46 | disposition home or self-care (01) ==

== ENCOUNTER 2018-03-18 20:35 | Emergency (ER) | END 2018-03-18 22:46 | disposition home or self-care (01) ==

== ENCOUNTER 2018-05-10 15:03 | Emergency (ER) | payer OTHER ==
[~2018-05-10] VITALS: Ht 167.6 cm; Wt 87.6 kg
[~2018-05-10 15:03] MED LIST changes: -ACET500C5 PO; +ALBU18HF INHALATION; -ALBU8.5H3 INH; -ALBU8.5H5 IH; -ASPI81TA3 PO; +ATOR40TA68 PO; -AZIT250T94 PO; -BACTDS PO; +CAPT25TA3 PO; +CARAS PO; -CEPH-443 PO; +CHOL100062 PO; -DICY10CA60 PO; -ERGO500014 PO; -ESCI20TA38 PO; +FER325 PO; +GLIM4TAB PO; -HYDR-1049 PO; -HYDR-906 PO; +IBUP-1542 PO; -INSU100C SQ; -INSU300I SQ; -LEVEM SC; +LORA10TA3 PO; +METF100010 PO; -METF500T4 PO; -METR500T PO; -MOME13HF INHALATION; +MONT10TA21 PO; -MONT10TA24 PO; -NAPR-260 PO; -NAPR-688 PO; -NYST15CR28 TOP; -NYST1POW22 TOPICAL; +OMEP40CA6 PO; -ONDA4TAB8 PO; -PHEN-538 PO; +POLY17PO6 PO; -RANI150T9 PO; +SITA100T11 PO; +SULF1TAB31 PO; -TRAZ50TA18 PO; -VENL37.59 PO
[2018-05-10 15:05] VITALS: Ht 167.6 cm; Wt 87.6 kg
[2018-05-10] MEDS ORDERED: ONDANSETRON (ODT) 4 MG TAB ODT STA (15:18)
[2018-05-10] MEDS ORDERED: NPH10OT BOTH EARS (15:21)
[2018-05-10] MEDS ORDERED: ONDA4TAB14 PO (15:21)
[2018-05-10] MEDS ORDERED: traMADol 50 MG TAB PO ONE (15:30)
[2018-05-10] MEDS ORDERED: TRAM50TA2 PO (15:53)
[2018-05-10 16:09] VITALS: BP 138/78; PULSE 72; RESP 18
--- NOTE | 2018-05-10 19:35 | ERD ---
ER Documentation Chief Complaint Chief Complaint Abdominal pain and vomiting with headache and bilateral ear pain x 3 days HPI Patient is a 52-year-old female with diabetes, hypertension, and arthritis who presents with abdominal pain and vomiting. She also has bilateral ear pain. The symptoms started 4 days ago. She tried tramadol. She has not called her primary doctor as of yet. Upon review of old medical records the patient has multiple visits to the ER for various complaints. Her primary doctor is Dr. Thompson. ROS All systems reviewed and are negative except as per history of present illness. Medications Home Meds Active Scripts Tramadol HCl (Tramadol HCl) 50 Mg Tablet, 50 MG PO Q6 PRN for PAIN, #6 TAB Prov:JHON SHELTON MD 05/10/18 Neomycin/Polymyxin/Hydrocort* (Cortisporin* Otic) 10 Ml Susp, 4 DROP BOTH EARS QID for 7 Days, EA Prov:JHON SHELTON MD 05/10/18 Ondansetron (Ondansetron Odt) 4 Mg Tab.rapdis, 4 MG PO Q6H PRN for NAUSEA AND/OR VOMITING, #10 TAB Prov:JHON SHELTON MD 05/10/18 Ibuprofen* (Motrin*) 600 Mg Tab, 600 MG PO Q6H PRN for PAIN AND OR ELEVATED TEMP , #20 TAB Prov:ARCELIA TINEO MD 02/27/18 Sulfamethoxazole/Trimethoprim* (Bactrim Ds* Tablet) 1 Each Tablet, 1 TAB PO BID for 7 Days, TAB Prov:ARCELIA TINEO MD 02/27/18 Sucralfate* (Carafate*) 1 Gm/10 Ml Susp, 1 GM PO QID, #500 ML Prov:ISRRAEL MOONEY 02/20/18 Omeprazole* (Omeprazole*) 40 Mg Capsule.dr, 40 MG PO QAM for 30 Days, #30 CAP 1 Refill Prov:ISRRAEL MOONEY 02/20/18 Tramadol HCl (Tramadol HCl) 50 Mg Tablet, 50 MG PO Q6 PRN for PAIN, #10 TAB Prov:ARCELIA TINEO MD 12/01/17 Polyethylene Glycol* (Miralax*) 17 Gm Powd.pack, 17 GM PO DAILY, #7 Prov:SALLY TREVIZO DO 11/20/17 Reported Medications Cholecalciferol* (Vitamin D3*) 1,000 Unit Tablet, PO DAILY, TAB 02/16/18 Sitagliptin* (Januvia*) 100 Mg Tablet, 100 MG PO DAILY, #30 TAB 02/16/18 Glimepiride* (Glimepiride*) 4 Mg Tablet, 4 MG PO WITH BREAKFAST DINNE, TAB 02/16/18 Ferrous Sulfate* (Ferrous Sulfate*) 325 Mg Tabec, 325 MG PO DAILY, TAB 10/08/17 Metformin Hcl* (Metformin Hcl*) 1,000 Mg Tablet, 1000 MG PO WITH BREAKFAST DINNE, #60 TAB 10/08/17 Montelukast Sodium* (Singulair*) 10 Mg Tablet, 10 MG PO QHS, #30 TAB 07/17/17 Atorvastatin* (Atorvastatin*) 40 Mg Tablet, 40 MG PO QHS, #30 TAB 07/17/17 Albuterol Sulfate* (Ventolin HFA*) 18 Gm Hfa.aer.ad, 2 PUFF INHALATION Q4H, #1 INHALER 07/17/17 Gabapentin* (Gabapentin*) 300 Mg Capsule, 300 MG PO BID, #90 CAP TAKE 300MG-QAM AND 900MG-QPM 07/17/17 Loratadine* (Loratadine*) 10 Mg Tablet, 10 MG PO DAILY, #30 TAB 07/17/17 Captopril* (Captopril*) Unknown Strength Tablet, PO DAILY, #60 TAB 07/17/17 Allergies Allergies: Coded Allergies: hydromorphone (Verified Allergy, Intermediate, ITCHING, 03/18/18) celecoxib (Verified Allergy, Unknown, SOB, 03/18/18) cephalexin (Verified Allergy, Unknown, 03/18/18) ciprofloxacin (Unverified Allergy, Unknown, RASH, 03/18/18) PMhx/Soc History of Surgery: Yes (R SHOULDER SX, APPENDECTOMY, POLYPECTOMY, BREAST MASS EXCISION) Anesthesia Reaction: No Hx Neurological Disorder: Yes ("BURNING FEET") Hx Respiratory Disorders: Yes (ASTHMA) Hx Cardiac Disorders: Yes (HTN, H/O 2013) Hx Psychiatric Problems: Yes (ANXIETY, DEPRESSION, PANIC ATTACKS) Hx Miscellaneous Medical Probl: Yes (erosive gastritis, anxiety, "burning feet") Hx Alcohol Use: No Hx Substance Use: No Hx Tobacco Use: No Smoking Status: Never smoker FmHx Family History: diabetes Physical Exam Vitals Vital Signs Date Temp Pulse Resp B/P (MAP) Pulse Ox O2 O2 Flow FiO2 Time Delivery Rate 05/10/18 98.7 72 18 138/78 97 Room Air 16:09 (98) 05/10/18 99.0 58 20 140/78 96 15:05 (98) Physical Exam Const: Mild distress secondary to pain Head: Atraumatic Eyes: Normal Conjunctiva ENT: Mild erythema to the left tympanic membrane Neck: Full range of motion. No meningismus. Resp: Clear to auscultation bilaterally Cardio: Regular rate and rhythm, no murmurs Abd: Soft, non tender, non distended. Normal bowel sounds Skin: No petechiae or rashes Back: No midline or flank tenderness Ext: No cyanosis, or edema Neur: Awake and alert Psych: Normal Mood and Affect Results 24 hrs Laboratory Tests Test 05/10/18 15:31 Bedside Urine pH (LAB) 5.5 Bedside Urine Protein (LAB) 2+ Bedside Urine Glucose (UA) Negative Bedside Urine Ketones (LAB) 1+ Bedside Urine Blood 1+ Bedside Urine Nitrite (LAB) Negative Bedside Urine Leukocyte Esterase (L Negative Current Medications Medications Dose Sig/Nj Start Time Status Last (Trade) Ordered Route PRN Stop Time Admin Dose Reason Admin Tramadol 50 mg ONCE ONCE 05/10/18 DC 05/10/18 HCl PO 15:30 15:41 (Ultram) 05/10/18 15:31 Ondansetron 4 mg ONCE STAT 05/10/18 DC 05/10/18 HCl (Zofran ODT 15:18 15:41 Odt) 05/10/18 15:20 Procedures/MDM Patient is a 52-year-old female who presents with multiple complaints. She has sore throat, bilateral ear pain, and abdominal pain. I doubt serious bacterial infection at this time. I doubt serious intra-abdominal process such as cholecystitis, pancreatitis, appendicitis, or bowel obstruction. I believe outpatient management is appropriate but the patient will need close follow-up with her primary doctor within 24-48 hours. The patient can return for any worsening symptoms. Departure Diagnosis: Primary Impression: Sore throat Additional Impressions: Ear pain Laterality: bilateral Qualified Codes: H92.03 - Otalgia, bilateral Abdominal pain Abdominal location: generalized Qualified Codes: R10.84 - Generalized abdominal pain Condition: Fair Patient Instructions: Abdominal Pain, Self-Care for Sore Throats Referrals: Dr. Lori Thompson Additional Instructions: Llame al doctor MAANA y zayda lori LAVONNE PARA DENTRO DE 1-2 NI.Dgale a la secretaria que nosotros le instruimos hacer esta lavonne.Avise o llame si maxwell condicin se empeora antes de la lavonne. Regresa aqui si peor o no mejor. JHON SHELTON MD May 10, 2018 19:35
== END 2018-05-10 16:11 | disposition home or self-care (01) ==
LOC: E/R 15:03
DX: J02.9 Acute pharyngitis, unspecified (principal); H92.03 Otalgia, bilateral; R10.84 Generalized abdominal pain; J45.909 Unspecified asthma, uncomplicated; I10 Essential (primary) hypertension; E11.9 Type 2 diabetes mellitus without complications; Z79.84 Long term (current) use of oral hypoglycemic drugs
CPT/HCPCS: 81003; Z7502; Z7610; 99283

== ENCOUNTER 2018-05-13 22:20 | Emergency (ER) | payer OTHER ==
[~2018-05-13] VITALS: Ht 149.9 cm; Wt 89.3 kg
[~2018-05-13 22:20] MED LIST changes: +NPH10OT BOTH EARS; +ONDA4TAB14 PO
[2018-05-13 22:24] VITALS: Ht 149.9 cm; Wt 89.3 kg
[2018-05-13] MEDS ORDERED: predniSONE 20 MG TAB PO STA (23:01)
[2018-05-13] MEDS ORDERED: IPRATROPIUM (NEB) 0.5 MG/2.5 ML AMP INH STA (23:01)
[2018-05-13] MEDS ORDERED: ALBUTEROL 0.5% (NEB) 2.5 MG/0.5 ML AMP INH STA (23:01)
[2018-05-13] MEDS ORDERED: ONDANSETRON (ODT) 4 MG TAB ODT STA (23:10)
[2018-05-14] MEDS ORDERED: ALBU18HF INHALATION (01:09)
[2018-05-14] MEDS ORDERED: PRED20TA PO (01:09)
--- NOTE | 2018-05-14 01:10 | ERD ---
ER Documentation Chief Complaint Chief Complaint hx asthma worsened sob 3 days. inhaler not working HPI This is a very pleasant 53-year-old male with a history of asthma comes worsening shortness of breath over the past 3 days. She has been using inhaler without improvement. Denies fevers chills nausea vomiting. Mild cough nonproductive. No other current complaints. ROS All systems reviewed and are negative except as per history of present illness. Medications Home Meds Active Scripts Prednisone* (Prednisone*) 20 Mg Tab, 60 MG PO DAILY for 5 Days, TAB Prov:LIS ANGEL 05/14/18 Albuterol Sulfate* (Ventolin HFA*) 18 Gm Hfa.aer.ad, 2 PUFF INHALATION Q4H, #1 INHALER Prov:LIS ANGEL 05/14/18 Tramadol HCl (Tramadol HCl) 50 Mg Tablet, 50 MG PO Q6 PRN for PAIN, #6 TAB Prov:JHON SHELTON MD 05/10/18 Ondansetron (Ondansetron Odt) 4 Mg Tab.rapdis, 4 MG PO Q6H PRN for NAUSEA AND/OR VOMITING, #10 TAB Prov:JHON SHELTON MD 05/10/18 Ibuprofen* (Motrin*) 600 Mg Tab, 600 MG PO Q6H PRN for PAIN AND OR ELEVATED TEMP, #20 TAB Prov:ARCELIA TINEO MD 02/27/18 Sucralfate* (Carafate*) 1 Gm/10 Ml Susp, 1 GM PO QID, #500 ML Prov:ISRRAEL MOONEY 02/20/18 Omeprazole* (Omeprazole*) 40 Mg Capsule.dr, 40 MG PO QAM for 30 Days, #30 CAP 1 Refill Prov:ISRRAEL MOONEY 02/20/18 Polyethylene Glycol* (Miralax*) 17 Gm Powd.pack, 17 GM PO DAILY, #7 Prov:SALLY TREVIZO DO 11/20/17 Reported Medications Cholecalciferol* (Vitamin D3*) 1,000 Unit Tablet, PO DAILY, TAB 02/16/18 Sitagliptin* (Januvia*) 100 Mg Tablet, 100 MG PO DAILY, #30 TAB 02/16/18 Glimepiride* (Glimepiride*) 4 Mg Tablet, 4 MG PO WITH BREAKFAST DINNE, TAB 02/16/18 Ferrous Sulfate* (Ferrous Sulfate*) 325 Mg Tabec, 325 MG PO DAILY, TAB 10/08/17 Metformin Hcl* (Metformin Hcl*) 1,000 Mg Tablet, 1000 MG PO WITH BREAKFAST DINNE, #60 TAB 10/08/17 Montelukast Sodium* (Singulair*) 10 Mg Tablet, 10 MG PO QHS, #30 TAB 07/17/17 Atorvastatin* (Atorvastatin*) 40 Mg Tablet, 40 MG PO QHS, #30 TAB 07/17/17 Albuterol Sulfate* (Ventolin HFA*) 18 Gm Hfa.aer.ad, 2 PUFF INHALATION Q4H, #1 INHALER 07/17/17 Gabapentin* (Gabapentin*) 300 Mg Capsule, 300 MG PO BID, #90 CAP TAKE 300MG-QAM AND 900MG-QPM 07/17/17 Loratadine* (Loratadine*) 10 Mg Tablet, 10 MG PO DAILY, #30 TAB 07/17/17 Captopril* (Captopril*) Unknown Strength Tablet, PO DAILY, #60 TAB 07/17/17 Discontinued Scripts Neomycin/Polymyxin/Hydrocort* (Cortisporin* Otic) 10 Ml Susp, 4 DROP BOTH EARS QID for 7 Days, EA Prov:JHON SHELTON MD 05/10/18 Sulfamethoxazole/Trimethoprim* (Bactrim Ds* Tablet) 1 Each Tablet, 1 TAB PO BID for 7 Days, TAB Prov:ARCELIA TINEO MD 02/27/18 Tramadol HCl (Tramadol HCl) 50 Mg Tablet, 50 MG PO Q6 PRN for PAIN, #10 TAB Prov:ARCELIA TINEO MD 12/01/17 Allergies Allergies: Coded Allergies: hydromorphone (Verified Allergy, Intermediate, ITCHING, 05/13/18) celecoxib (Verified Allergy, Unknown, SOB, 05/13/18) cephalexin (Verified Allergy, Unknown, 05/13/18) ciprofloxacin (Unverified Allergy, Unknown, RASH, 05/13/18) PMhx/Soc Medical and Surgical Hx: pt denies Surgical Hx History of Surgery: No Anesthesia Reaction: No Hx Neurological Disorder: No Hx Respiratory Disorders: Yes (ASTHMA ) Hx Cardiac Disorders: Yes (HTN ) Hx Psychiatric Problems: No Hx Miscellaneous Medical Probl: Yes (DM II) Hx Alcohol Use: No Hx Substance Use: No Hx Tobacco Use: No Smoking Status: Never smoker Physical Exam Vitals Vital Signs Date Temp Pulse Resp B/P (MAP) Pulse Ox O2 O2 Flow FiO2 Time Delivery Rate 05/13/18 93 20 100 21 23:15 05/13/18 98.7 94 16 120/78 98 Room Air 23:07 (92) 05/13/18 99.6 96 32 129/90 99 22:24 (103) Physical Exam Const: No acute distress Head: Atraumatic Eyes: Normal Conjunctiva ENT: Normal External Ears, Nose and Mouth. Neck: Full range of motion. No meningismus. Resp: Scattered wheezes in all lung [place] Cardio: Regular rate and rhythm, no murmurs Abd: Soft, non tender, non distended. Normal bowel sounds Skin: No petechiae or rashes Back: No midline or flank tenderness Ext: No cyanosis, or edema Neur: Awake and alert Psych: Normal Mood and Affect Results 24 hrs Current Medications Medications Dose Sig/Nj Start Time Status Last (Trade) Ordered Route PRN Stop Time Admin Dose Reason Admin Albuterol 10 mg ONCE STAT 05/13/18 DC 05/13/18 (Proventil INH 23:01 05/13/18 23:15 0.5% (Neb)) 23:02 Ipratropium 1 mg ONCE STAT 05/13/18 DC 05/13/18 [place] INH 23:01 05/13/18 23:15 (Atrovent 23:02 0.02% (Neb)) Prednisone 60 mg ONCE STAT 05/13/18 DC 05/13/18 (Prednisone) PO 23:01 05/13/18 23:08 23:02 Ondansetron 4 mg ONCE STAT 05/13/18 DC 05/13/18 HCl (Zofran ODT 23:10 05/13/18 23:13 Odt) 23:11 Procedures/MDM Chest X-ray 1V Interpreted by me: Soft Tissue: No acute abnormalities Bones: No acute abnormalities Mediastinum/Cardiac Silhouette/Lungs: [No acute abnormalities] Medical decision make: Patient's respiratory status has stabilized while in the department and is appropriate for outpatient work up. Exam and work up not consistent w/ impending respiratory failure or car diovascular collapse. Departure Diagnosis: Primary Impression: Shortness of breath Condition: Stable Patient Instructions: Asthma, Acute (Adult) LIS ANGEL May 14, 2018 01:10
[2018-05-14 01:29] VITALS: BP 113/65; PULSE 88; RESP 16
== END 2018-05-14 01:36 | disposition home or self-care (01) ==
LOC: E/R 22:20
DX: J45.901 Unspecified asthma with (acute) exacerbation (principal); I10 Essential (primary) hypertension; E11.9 Type 2 diabetes mellitus without complications; Z79.84 Long term (current) use of oral hypoglycemic drugs
CPT/HCPCS: 71045; 94644; J7512; Z7502; Z7610

== ENCOUNTER 2018-05-25 19:15 | Emergency (ER) | payer OTHER ==
[~2018-05-25] VITALS: Ht 154.9 cm; Wt 90.6 kg
[~2018-05-25 19:15] MED LIST changes: -NPH10OT BOTH EARS; +PRED20TA PO; -SULF1TAB31 PO
[2018-05-25 19:20] VITALS: Ht 154.9 cm; Wt 90.6 kg
[2018-05-25] MEDS ORDERED: ONDANSETRON (ODT) 4 MG TAB ODT STA (22:29)
[2018-05-25] MEDS ORDERED: morphine 4 MG/ML VIAL IM STA (23:18)
[2018-05-26] MEDS ORDERED: ONDA4TAB14 PO (01:42)
[2018-05-26 01:46] VITALS: BP 113/69; PULSE 100; RESP 18
--- NOTE | 2018-05-26 07:05 | ERD ---
ER Documentation Chief Complaint Chief Complaint HEADACHE WITH ABD PAIN N/V [id number] HPI 53-year-old female past medical history of asthma, diabetes presents for abdominal pain and headache times 1 week. She has history of pancreatitis. She has abdominal pain with bowel movements. Abdominal pain noted to be in the [facility] upper quadrant, pain rated 7 out of 10. Patient does have a endoscopy and CT scan scheduled for primary care physician however the patient states that she cannot wait. She did try to take tramadol and Tylenol with codeine at home however she states that there is no relief. ROS All systems reviewed and are negative except as per history of present illness. Medications Home Meds Active Scripts Ondansetron (Ondansetron Odt) 4 Mg Tab.rapdis, 4 MG PO Q6H PRN for NAUSEA AND/OR VOMITING, #15 TAB Prov:ARCELIA MCNEILL DO 05/26/18 Prednisone* (Prednisone*) 20 Mg Tab, 60 MG PO DAILY for 5 Days, TAB Prov:LIS ANGEL 05/14/18 Albuterol Sulfate* (Ventolin HFA*) 18 Gm Hfa.aer.ad, 2 PUFF INHALATION Q4H, #1 INHALER Prov:LIS ANGEL 05/14/18 Tramadol HCl (Tramadol HCl) 50 Mg Tablet, 50 MG PO Q6 PRN for PAIN, #6 TAB Prov:JHON SHELTON MD 05/10/18 Ondansetron (Ondansetron Odt) 4 Mg Tab.rapdis, 4 MG PO Q6H PRN for NAUSEA AND/OR VOMITING, #10 TAB Prov:JHON SHELTON MD 05/10/18 Ibuprofen* (Motrin*) 600 Mg Tab, 600 MG PO Q6H PRN for PAIN AND OR ELEVATED TEMP, #20 TAB Prov:ARCELIA TINEO MD 02/27/18 Sucralfate* (Carafate*) 1 Gm/10 Ml Susp, 1 GM PO QID, #500 ML Prov:ISRRAEL MOONEY 02/20/18 Omeprazole* (Omeprazole*) 40 Mg Capsule.dr, 40 MG PO QAM for 30 Days, #30 CAP 1 Refill Prov:ISRRAEL MOONEY 02/20/18 Polyethylene Glycol* (Miralax*) 17 Gm Powd.pack, 17 GM PO DAILY, #7 Prov:SALLY TREVIZO DO 11/20/17 Reported Medications Cholecalciferol* (Vitamin D3*) 1,000 Unit Tablet, PO DAILY, TAB 02/16/18 Sitagliptin* (Januvia*) 100 Mg Tablet, 100 MG PO DAILY, #30 TAB 02/16/18 Glimepiride* (Glimepiride*) 4 Mg Tablet, 4 MG PO WITH BREAKFAST DINNE, TAB 02/16/18 Ferrous Sulfate* (Ferrous Sulfate*) 325 Mg Tabec, 325 MG PO DAILY, TAB 10/08/17 Metformin Hcl* (Metformin Hcl*) 1,000 Mg Tablet, 1000 MG PO WITH BREAKFAST DINNE, #60 TAB 10/08/17 Montelukast Sodium* (Singulair*) 10 Mg Tablet, 10 MG PO QHS, #30 TAB 07/17/17 Atorvastatin* (Atorvastatin*) 40 Mg Tablet, 40 MG PO QHS, #30 TAB 07/17/17 Albuterol Sulfate* (Ventolin HFA*) 18 Gm Hfa.aer.ad, 2 PUFF INHALATION Q4H, #1 INHALER 07/17/17 Gabapentin* (Gabapentin*) 300 Mg Capsule, 300 MG PO BID, #90 CAP TAKE 300MG-QAM AND 900MG-QPM 07/17/17 Loratadine* (Loratadine*) 10 Mg Tablet, 10 MG PO DAILY, #30 TAB 07/17/17 Captopril* (Captopril*) Unknown Strength Tablet, PO DAILY, #60 TAB 07/17/17 Allergies Allergies: Coded Allergies: hydromorphone (Verified Allergy, Intermediate, ITCHING, 05/13/18) celecoxib (Verified Allergy, Unknown, SOB, 05/13/18) cephalexin (Verified Allergy, Unknown, 05/13/18) ciprofloxacin (Unverified Allergy, Unknown, RASH, 05/13/18) PMhx/Soc History of Surgery: No Anesthesia Reaction: No Hx Neurological Disorder: No Hx Respiratory Disorders: Yes (ASTHMA ) Hx Cardiac Disorders: Yes (HTN ) Hx Psychiatric Problems: No Hx Miscellaneous Medical Probl: Yes (DM II) Hx Alcohol Use: No Hx Substance Use: No Hx Tobacco Use: No Smoking Status: Never smoker Physical Exam Vitals Vital Signs Date Temp Pulse Resp B/P (MAP) Pulse Ox O2 O2 Flow FiO2 Time Delivery Rate 05/26/18 98.8 100 18 113/69 97 Room Air 01:46 (84) 05/25/18 99.5 104 18 121/74 95 19:20 (90) Physical Exam Const: No acute distress Resp: Clear to auscultation bilaterally Cardio: Regular rate and rhythm, no murmurs Abd: Soft, non distended. Normal bowel sounds, mild right upper quadrant tenderness to palpation, no McBurney's point tenderness, no Hudson sign, no rebound or guarding noted Skin: No petechiae or rashes Back: No midline or flank tenderness Ext: No cyanosis, or edema Neur: Awake and alert Psych: Normal Mood and Affect Results 24 hrs Laboratory Tests Test 05/25/18 22:41 White Blood Count 15.6 10^3/ul Red Blood Count 4.37 10^6/ul Hemoglobin 11.9 g/dl Hematocrit 37.4 % Mean Corpuscular Volume 85.6 fl Mean Corpuscular Hemoglobin 27.2 pg Mean Corpuscular Hemoglobin Concent 31.8 g/dl Red Cell Distribution Width 14.4 % Platelet Count 261 10^3/UL Mean Platelet Volume 10.2 fl Immature Granulocytes % 0.400 % Neutrophils % 61.5 % Lymphocytes % 29.9 % Monocytes % 6.0 % Eosinophils % 1.9 % Basophils % 0.3 % Nucleated Red Blood Cells % 0.0 /100WBC Immature Granulocytes # 0.070 10^3/ul Neutrophils # 9.6 10^3/ul Lymphocytes # 4.7 10^3/ul Monocytes # 0.9 10^3/ul Eosinophils # 0.3 10^3/ul Basophils # 0.1 10^3/ul Nucleated Red Blood Cells # 0.0 10^3/ul Urine Color STRAW Urine Clarity CLEAR Urine pH 6.0 Urine Specific [place] 1.021 Urine Ketones NEGATIVE mg/dL Urine Nitrite NEGATIVE mg/dL Urine Bilirubin NEGATIVE mg/dL Urine Urobilinogen NEGATIVE mg/dL Urine Leukocyte Esterase NEGATIVE Linda/ul Urine Hemoglobin NEGATIVE mg/dL Urine Glucose 3+ mg/dL Urine Total Protein NEGATIVE mg/dl Sodium Level 139 mmol/L Potassium Level 4.0 mmol/L Chloride Level 100 mmol/L Carbon Dioxide Level 26 mmol/L Anion Gap 13 Blood Urea Nitrogen 11 mg/dl Creatinine 0.66 mg/dl Est Glomerular Filtrat Rate mL/min > 60 mL/min Glucose Level 317 mg/dl Calcium Level 9.0 mg/dl Total Bilirubin 0.2 mg/dl Direct Bilirubin 0.00 mg/dl Indirect Bilirubin 0.2 mg/dl Aspartate Amino Transf (AST/SGOT) 47 IU/L Alanine Aminotransferase (ALT/SGPT) 45 IU/L Alkaline Phosphatase 211 IU/L Total Protein 8.0 g/dl Albumin 3.8 g/dl Globulin 4.20 g/dl Albumin/Globulin Ratio 0.90 Lipase 92 U/L Current Medications Medications Dose Sig/Nj Start Time Status Last (Trade) Ordered Route PRN Stop Time Admin Dose Reason Admin Ondansetron 4 mg ONCE STAT 05/25/18 DC 05/25/18 HCl (Zofran ODT 22:29 22:46 Odt) 05/25/18 22:32 Morphine 4 mg ONCE STAT 05/25/18 DC 05/25/18 Sulfate IM 23:18 23:47 (morphine) 05/25/18 23:21 Procedures/MDM Medical Decision Making: Differential diagnosis includes but not limited to acute gastritis, acute gastro enteritis, appendicitis, cholecystitis, pancreatitis. Patient appeared well on physical exam. Nontoxic appearing. There is mild right upper quadrant tenderness palpation, No rebound or guarding noted. Labs: CBC showed mild anemia hemoglobin 11.9, elevated WBC 15.6 likely a stress reaction CMP showed no electrolyte abnormalities, there was normal kidney and liver function Lipase was normal UA was negative for infection Imaging: Gallbladder ultrasound showed Fatty infiltration of the liver. Otherwise unremarkable right upper abdominal ultrasound. Patient was given morphine and Zofran in the ER with relief of symptoms. Given the patient already has tramadol and Tylenol with codeine at home patient advised to continue with her medications. Patient given prescription for Zofran. Patient advised to follow up with PCP in 1-2 days. Patient advised to return to ED for new or worsening symptoms. Patient stable on discharge from the ED. Disclaimer: Inadvertent spelling and grammatical errors are likely due to EHR/dictation software use and do not reflect on the overall quality of patient care. Also, please note that the electronic time recorded on this note does not necessarily reflect the actual time of the patient encounter. Departure Diagnosis: Primary Impression: Abdominal pain Abdominal location: unspecified location Qualified Codes: R10.9 - Unspecified abdominal pain Condition: Fair Patient Instructions: Abdominal Pain Referrals: COMM[facility]ITY [facility] YOU HAVE RECEIVED A MEDICAL SCREENING EXAM AND THE RESULTS INDICATE THAT YOU DO NOT HAVE A CONDITION THAT REQUIRES URGENT TREATMENT IN THE EMERGENCY DEPARTMENT. FURTHER EVALUATION AND TREATMENT OF YOUR CONDITION CAN WAIT UNTIL YOU ARE SEEN IN YOUR DOCTORS OFFICE WITHIN THE NEXT 1-2 DAYS. IT IS YOUR RESPONSIBILITY TO MAKE AN APPOINTMENT FOR FOLOW-UP CARE. IF YOU HAVE A PRIMARY DOCTOR --you should call your primary doctor and schedule an appointment IF YOU DO NOT HAVE A PRIMARY DOCTOR YOU CAN CALL OUR PHYSICIAN REFERRAL HOTLINE AT IF YOU CAN NOT AFFORD TO SEE A PHYSICIAN YOU CAN CHOSE FROM THE FOLLOWING [facility] [email or web address] [facility] [email or web address] [facility] [address] [facility]. [facility] [address] [facility]. [facility] [address] [facility] [employer] [address] Additional Instructions: Llame al doctor MAANA y zayda lori LAVONNE PARA DENTRO DE 1-2 NI.Dgale a la secretaria que nosotros le instruimos hacer esta lavonne.Avise o llame si maxwell condicin se empeora antes de la lavonne. Regresa aqui si peor o no mejor. ARCELIA MCNEILL DO May 26, 2018 07:05
[2018-06-17] MEDS ORDERED: CHOLESTEROL MED PO (11:46)
[2018-06-17] MEDS ORDERED: DEPRESSION MED PO (11:46)
[2018-06-17] MEDS ORDERED: HTN MED PO (11:46)
[2018-06-17] MEDS ORDERED: INHALER (11:46)
[2018-06-21] MEDS ORDERED: ACET325T33 PO (18:27)
== END 2018-05-26 01:47 | disposition home or self-care (01) ==
LOC: FTE 19:15
DX: R10.9 Unspecified abdominal pain (principal); E11.9 Type 2 diabetes mellitus without complications; I10 Essential (primary) hypertension; J45.909 Unspecified asthma, uncomplicated; Z79.84 Long term (current) use of oral hypoglycemic drugs
CPT/HCPCS: 36415; 76705; 80053; 81003; 83690; 85025; 96372; J2270; Z7502; Z7610

== ENCOUNTER 2018-08-22 20:39 | Inpatient (IN) | payer OTHER ==
[~2018-08-22] VITALS: Ht 144.8 cm; Wt 95.3 kg
[~2018-08-22 20:39] MED LIST changes: +ACET325T33 PO; -ALBU18HF INHALATION; -ATOR40TA68 PO; -CAPT25TA3 PO; -CARAS PO; -CHOL100062 PO; +CHOLESTEROL MED PO; +DEPRESSION MED PO; -FER325 PO; -GABA300C16 PO; -GLIM4TAB PO; +HTN MED PO; -IBUP-1542 PO; +INHALER; -LORA10TA3 PO; -METF100010 PO; -MONT10TA21 PO; -OMEP40CA6 PO; -ONDA4TAB14 PO; -POLY17PO6 PO; -PRED20TA PO; -SITA100T11 PO; -TRAM50TA2 PO
[2018-08-22] MEDS ORDERED: SODIUM CHLORIDE 0.9% 1L BAG IV* STA (20:47)
--- NOTE | 2018-08-22 20:54 | ERD ---
ER Documentation Chief Complaint Chief Complaint AP pain, upper AP pt reports gallbladder issue, painful urination HPI Is a 53-year-old female who presents for evaluation of abdominal pain, reported as upper abdominal pain for the last day. She also endorses painful urination. She has been having a fever today, her pain is diffuse, she has not had any vomiting. There are no alleviating or aggravating factors. She denies any c hest pain or shortness of breath. Symptoms are constant. Described as sharp. ROS All systems reviewed and are negative except as per history of present illness. Medications Home Meds Active Scripts Acetaminophen* (Tylenol*) 325 Mg Tablet, 2 TAB PO Q6 PRN for PAIN AND OR ELEVATED TEMP, #20 TAB Prov:LIS ALEJANDRE PA-C 06/21/18 Reported Medications [Inhaler] No Conflict Check, DAILY PRN for SHORTNESS OF BREATH 06/17/18 [Cholesterol Med] No Conflict Check, PO DAILY 06/17/18 [Depression Med] No Conflict Check, PO DAILY 06/17/18 [Htn Med] No Conflict Check, PO DAILY 06/17/18 Allergies Allergies: Coded Allergies: hydromorphone (Verified Allergy, Intermediate, ITCHING, 06/21/18) celecoxib (Verified Allergy, Unknown, SOB, 06/21/18) cephalexin (Verified Allergy, Unknown, 06/21/18) ciprofloxacin (Unverified Allergy, Unknown, RASH, 06/21/18) PMhx/Soc History of Surgery: No (HEART CATH) Anesthesia Reaction: No Hx Neurological Disorder: No Hx Respiratory Disorders: Yes (ASTHMA-LAST INHALER USE 2 DAYS AGO) Hx Cardiac Disorders: Yes (HTN, CP 2013-NEG CARDIAC TESTS) Hx Psychiatric Problems: Yes (DEPRESSION) Hx Miscellaneous Medical Probl: Yes (HIGH CHOLESTEROL) Hx Alcohol Use: No Hx Substance Use: No Hx Tobacco Use: No Physical Exam Vitals Vital Signs Date Temp Pulse Resp B/P (MAP) Pulse Ox O2 O2 Flow FiO2 Time Delivery Rate 08/22/18 100.9 121 24 133/74 99 20:41 (93) Physical Exam Const: Moderate distress Head: Atraumatic Eyes: Normal Conjunctiva ENT: Normal External Ears, Nose and Mouth. Neck: Full range of motion. No meningismus. Resp: Clear to auscultation bilaterally Cardio: Regular rate and rhythm, no murmurs Abd: Soft, soft, diffuse tenderness r, non distended. Normal bowel sounds Skin: No petechiae or rashes Back: No midline or flank tenderness Ext: No cyanosis, or edema Neur: Awake and alert Psych: Normal Mood and Affect Result Diagram: 08/22/18205808/22/182057 Results 24 hrs Laboratory Tests Test 08/22/18 20:58 08/22/18 20:59 08/22/18 22:16 Prothrombin Time 12.7 Sec Prothrombin Time Ratio 1.0 INR International 0.94 Normalized Ratio Activated Partial Thromboplast 29.2 Sec Time Sodium Level 140 mmol/L Potassium Level 4.2 mmol/L Chloride Level 102 mmol/L Carbon Dioxide Level 29 mmol/L Anion Gap 9 Blood Urea Nitrogen 13 mg/dl Creatinine 0.73 mg/dl Est Glomerular Filtrat > 60 mL/min Rate mL/min Glucose Level 107 mg/dl Lactic Acid Level 2.8 mmol/L Calcium Level 8.8 mg/dl Total Bilirubin 0.5 mg/dl Direct Bilirubin 0.00 mg/dl Indirect Bilirubin 0.5 mg/dl Aspartate Amino 49 IU/L Transf (AST/SGOT) Alanine 31 IU/L Aminotransferase (ALT/SGPT) Alkaline Phosphatase 202 IU/L Troponin I < 0.012 ng/ml Total Protein 8.5 g/dl Albumin 4.1 g/dl Globulin 4.40 g/dl Albumin/Globulin Ratio 0.93 Lipase 86 U/L White Blood Count 19.3 10^3/ul Red Blood Count 4.68 10^6/ul Hemoglobin 12.6 g/dl Hematocrit 40.0 % Mean Corpuscular Volume 85.5 fl Mean Corpuscular Hemoglobin 26.9 pg Mean Corpuscular 31.5 g/dl Hemoglobin Concent Red Cell Distribution Width 16.5 % Platelet Count 308 10^3/UL Mean Platelet Volume 9.7 fl Immature Granulocytes % 0.600 % Neutrophils % 81.9 % Lymphocytes % 12.2 % Monocytes % 4.2 % Eosinophils % 0.9 % Basophils % 0.2 % Nucleated Red Blood Cells % 0.0 /100WBC Immature Granulocytes # 0.120 10^3/ul Neutrophils # 15.8 10^3/ul Lymphocytes # 2.4 10^3/ul Monocytes # 0.8 10^3/ul Eosinophils # 0.2 10^3/ul Basophils # 0.0 10^3/ul Nucleated Red Blood Cells # 0.0 10^3/ul Urine Color YELLOW Urine Clarity SLIGHTLY CLOUDY Urine pH 5.0 Urine Specific [place] 1.018 Urine Ketones NEGATIVE mg/dL Urine Nitrite NEGATIVE mg/dL Urine Bilirubin NEGATIVE mg/dL Urine Urobilinogen NEGATIVE mg/dL Urine Leukocyte Esterase NEGATIVE [place]/ul Urine Microscopic RBC 1 /HPF Urine Microscopic WBC 1 /HPF Urine Squamous Epithelial Cells FEW /HPF Urine Bacteria FEW /HPF Urine Mucus FEW /HPF Urine Hemoglobin NEGATIVE mg/dL Urine Glucose NEGATIVE mg/dL Urine Total Protein NEGATIVE mg/dl Current Medications Medications Dose Sig/Nj Start Time Status Last (Trade) Ordered Route PRN Stop Time Admin Dose Reason Admin Sodium 2,790 ml BOLUS OVER 2 08/22/18 DC Chloride HOURS STAT 20:47 (NS) IV* 08/22/18 21:00 Piperacillin 100 ml @ ONCE ONCE 08/22/18 DC 08/22/18 Sod/ 200 mls/hr IVPB 21:00 21:14 Tazobactam 08/22/18 21:29 Sod Morphine 4 mg ONCE STAT 08/22/18 DC 08/22/18 Sulfate IV 21:10 21:18 (morphine) 08/22/18 21:14 Ondansetron 4 mg ONCE STAT 08/22/18 DC 08/22/18 HCl (Zofran IV 21:10 21:18 Inj) 08/22/18 21:14 Procedures/MDM 53-year-old female presents for abdominal pain, she presents febrile, with leukocytosis, she met sepsis criteria. Patient was treated with empiric Zosyn, as well as IV fluids, she will be admitted. Sepsis Documentation: Patient's infectious symptoms have not stabilized and the patient is at risk of rapid decompensation. The patient will be admitted for careful hydration, antibiotic therapy, and infectious source control. SEVERE SEPSIS CRITERIA: Infectious source: Urinary versus intra-abdominal End organ damage indicated by: Lactate 2.8 SEPSIS MANAGEMENT Time of recognition of sepsis: [Upon arrival]. Time of recognition of severe sepsis: [No severe sepsis at this time]. Time of recognition of septic shock: [No septic shock at this time]. 3 HOUR BUNDLE Blood cultures x 2 before broad-spectrum antibiotics: [Yes] 30 ml/kg NS bolus [Completed] Initial lactate 2.8 Repeat lactate pending EKG: Rate/Rhythm: Normal Sinus Rhythm QRS, ST, T-waves: No changes consistent w/ acute ischemia Impression: No evidence of ischemia or arrhythmia SEPTIC SHOCK ASSESSMENT: No evidence of septic shock I considered further perfusion assessment with CVP measurement, SCVO2, bedside ultrasound volume assessment, passive leg raise, trial of further fluid bolus. And proceeded with [30 ml/kg fluid bolus of NSS, broad spectrum antibiotics, and admission.] CRITICAL CARE Critical care time [35] minutes Emergent fluid management while maintaining close respiratory support. Provision of immediate and broad-spectrum antibiotic therapy. Simultaneous assessment for possible sources in order to direct targeted therapy. Consideration for invasive and chemical support to prevent cardiopulmonary jose apse. Critical care time is independent of procedures performed. 1:20 AM: Patient had persistent pain, in the setting of a negative CT, thus had consideration for gallstones versus mesenteric ischemia. Both her ultrasound and her CTA were negative for acute findings, with the ultrasound showing no evidence of acute cholecystitis, and her CTA showing no evidence of mesenteric ischemia. Patient will be admitted to medicine under Dr. Martinez Departure Diagnosis: Primary Impression: Abdominal pain Abdominal location: unspecified location Qualified Codes: R10.9 - Unspecified abdominal pain Additional Impression: Sepsis Sepsis type: sepsis due to unspecified organism Qualified Codes: A41.9 - Sepsis, unspecified organism Condition: Stable ISRRAEL GUAN MD Aug 22, 2018 20:54
[2018-08-22] MEDS ORDERED: PIPER-TAZO 3.375 GM IV (PMX) 100 ML IVPB ONE (21:00)
[2018-08-22] MEDS ORDERED: ONDANSETRON 4 MG INJ IV STA (21:10)
[2018-08-22] MEDS ORDERED: morphine 4 MG/ML VIAL IV STA (21:10)
[2018-08-22] MEDS ORDERED: metroNIDAZOLE 500 MG/NS (PMX) 100 ML IVPB ONE (22:30)
[2018-08-22] MEDS ORDERED: SOD CHLORIDE 0.9% 100 ML ONE (22:42)
[2018-08-22] MEDS ORDERED: IOHEXOL 300MG/ML 150 ML BTL ONE (22:42)
[2018-08-22] MEDS ORDERED: HYDROmorphONE 0.5 MG/0.5 ML SYG IV STA (22:44)
[2018-08-22] MEDS ORDERED: SOD CHLORIDE 0.9% 1,000 ML IV SCH (23:11)
[2018-08-22] MEDS ORDERED: NACL 0.9% 3 ML SYG IV SCH (23:30)
[2018-08-22] MEDS ORDERED: ACETAMINOPHEN 325 MG TAB PO PRN (23:30)
[2018-08-22] MEDS ORDERED: ONDANSETRON 4 MG INJ IV PRN (23:30)
[2018-08-22] MEDS ORDERED: HYDROCODONE/APAP (5/325) TAB PO PRN (23:30)
[2018-08-23 00:56] VITALS: BP 123/68; PULSE 104; RESP 20; Ht 144.8 cm; Wt 95.3 kg
[2018-08-23] MEDS: HYDROCODONE/APAP (5/325) TAB PO PRN ×3 (01:10→18:16)
[2018-08-23] MEDS: FAMOTIDINE 20 MG TAB PO SCH ×3 (01:10→20:53)
--- NOTE | 2018-08-23 05:24 | HP ---
Date/Time of Note Date/Time of Note DATE: 08/23/18 TIME: 05:13 Assessment/Plan VTE Prophylaxis Pharmacological prophylaxis: heparin Lines/Catheters IV [facility] (from [facility]): Peripheral IV Urinary Cath still in place: No Assessment/Plan Assessment/Plan 1. Sepsis, as evidenced by fever and tachycardia, likely from a UTI given history of dysuria. UA however nondiagnostic -IV antibiotic -UA and chest x-ray nondiagnostic -Follow-up urine culture and blood culture 2. Abdominal pain: Pain in the upper abdominal region. Possibly related to her known gastric ulcer -Patient with history of pancreatitis, but the lipase negative -Multiple abdominal imaging, including ultrasound, CT and abdominal angiography negative for acute findings -PPI, Carafate 3. History of gastric ulcer: -See #2 4. Diabetes: Insulin 5. History of asthma: No sign of acute exacerbation 6. Dyslipidemia: Statin 7. Depression: Continue home med Result Diagram: 08/22/18205808/22/182057 Results 24hrs Laboratory Tests Test 08/22/18 20:58 08/22/18 20:59 08/22/18 22:16 08/22/18 22:29 Prothrombin Time 12.7 Prothrombin Time 1.0 Ratio INR International 0.94 Normalized Ratio Activated 29.2 Partial Thrombopl ast Time Sodium Level 140 Potassium Level 4.2 Chloride Level 102 Carbon Dioxide 29 Level Anion Gap 9 Blood Urea 13 Nitrogen Creatinine 0.73 Est Glomerular > 60 Filtrat Rate mL/min Glucose Level 107 Lactic Acid Level 2.8 *H Calcium Level 8.8 Total Bilirubin 0.5 Direct Bilirubin 0.00 Indirect 0.5 Bilirubin Aspartate Amino 49 H Transf (AST/SGOT) Alanine 31 Aminotransferase (ALT/SGPT) Alkaline 202 H Phosphatase Troponin I < 0.012 Total Protein 8.5 H Albumin 4.1 Globulin 4.40 H Albumin/Globulin 0.93 Ratio Lipase 86 White Blood Count 19.3 #H Red Blood Count 4.68 Hemoglobin 12.6 Hematocrit 40.0 Mean Corpuscular 85.5 Volume Mean Corpuscular 26.9 L Hemoglobin Mean Corpuscular 31.5 L Hemoglobin Concen t Red Cell 16.5 H Distribution Width Platelet Count 308 Mean Platelet 9.7 Volume Immature 0.600 H Granulocytes % Neutrophils % 81.9 H Lymphocytes % 12.2 L Monocytes % 4.2 Eosinophils % 0.9 Basophils % 0.2 Nucleated Red 0.0 Blood Cells % Immature 0.120 H Granulocytes # Neutrophils # 15.8 H Lymphocytes # 2.4 Monocytes # 0.8 Eosinophils # 0.2 Basophils # 0.0 Nucleated Red 0.0 Blood Cells # Urine Color YELLOW Urine Clarity SLIGHTLY CLOUDY A Urine pH 5.0 Urine Specific 1.018 [place] Urine Ketones NEGATIVE Urine Nitrite NEGATIVE Urine Bilirubin NEGATIVE Urine NEGATIVE Urobilinogen Urine Leukocyte NEGATIVE Esterase Urine Microscopic 1 RBC Urine Microscopic 1 WBC Urine Squamous FEW Epithelial Cells Urine Bacteria FEW A Urine Mucus FEW A Urine Hemoglobin NEGATIVE Urine Glucose NEGATIVE Urine Total NEGATIVE Protein Bedside Urine pH 5.5 (LAB) Bedside Urine 1+ H Protein (LAB) Bedside Urine Negative Glucose (UA) Bedside Urine Trace H Ketones (LAB) Bedside Urine Negative Blood Bedside Urine Negative Nitrite (LAB) Bedside Urine Negative Leukocyte Esteras e (L Test 08/22/18 22:44 08/23/18 01:46 Lactic Acid Level 1.3 1.1 HPI/ROS Admit Date/Time Admit Date/Time Aug 22, 2018 at 22:22 Hx of Present Illness This is a 53-year-old female with a history of diabetes, asthma, dyslipidemia, pancreatitis, gastric ulcer, depression, rheumatoid arthritis who presents the ER complaining of abdominal pain, fever and dysuria. She also reported throat pain. She reported that her abdominal pain is chronic (especially in the lower abdominal region), but symptoms have been progressively getting worse for the past few days. Denied chest pain. Reported nausea, no vomiting. She said she was told by director business systems Dr. Sesay that her pain is most likely from her gallbladder and as a result she is somehow fixated on that. She said a riverine assault craft crewman told her that her left kidney is " half " and that it needs to be taken out. Her kidney function however is normal. When presented to ER, she was found to be febrile with a temperature of 100.9, heart rate 121, WBC 19,000. UA not consistent with UTI. Chest x-ray without acute findings. She had multiple abdominal imaging including ultrasound, CT and abdominal angiography, and all were negative for acute findings. PMH/Family/Social Past Medical History Medical History: other (See HPI) Medications Current Medications Sodium Chloride 1,000 ml @ 100 mls/hr Q10H IV Last administered on 08/23/18at 01:06; Admin Dose 100 MLS/HR; Start 08/22/18 at 23:11; Stop 08/23/18 at 09:00 IV Flush (NS 3 ml) 3 ml PER PROTOCOL IV ; Start 08/22/18 at 23:30 Ondansetron HCl (Zofran Inj) 4 mg Q6H PRN IV NAUSEA/VOMITING Last administered on 08/23/18at 02:30; Admin Dose 4 MG; Start 08/22/18 at 23:30 Acetaminophen (Tylenol Tab) 650 mg Q6H PRN PO .PAIN 1-3 OR TEMP; Start 08/22/18 at 23:30 Acetaminophen/ Hydrocodone Bitart ([place] (5/325)) 1 tab Q6H PRN PO .MOD PAIN 4- 6; Start 08/22/18 at 23:30 Acetaminophen/ Hydrocodone Bitart ([place] (5/325)) 2 tab Q6H PRN PO .SEVERE PAIN 7-10 Last administered on 08/23/18at 01:10; Admin Dose 2 TAB; Start 08/22/18 at 23:30 Famotidine (Pepcid) 20 mg Q12 PO Last administered on 08/23/18at 01:10; Admin Dose 20 MG; Start 08/22/18 at 23:30 Heparin Sodium (Porcine) (Heparin (5000 Units/1ml)) 5,000 unit Q12 SC ; Start 08/23/18 at 09:00 Coded Allergies: hydromorphone (Verified Allergy, Intermediate, ITCHING, 06/21/18) celecoxib (Verified Allergy, Unknown, SOB, 06/21/18) cephalexin (Verified Allergy, Unknown, 06/21/18) ciprofloxacin (Unverified Allergy, Unknown, RASH, 06/21/18) Past Surgical History Past Surgical Hx: other (See HPI) Family History Significant Family History: no pertinent family hx Social History Alcohol Use: none Smoking Status: Never smoker Drug Use: none Exam/Review of Systems Vital Signs Vitals Vital Signs Date Temp Pulse Resp B/P (MAP) Pulse Ox O2 O2 Flow FiO2 Time Delivery Rate 08/23/18 98.9 104 20 123/68 96 Room Air 00:56 (86) Intake and Output 08/22/18 08/22/18 08/23/18 1515:00 23:00 07:00 IntakeIntake Total 740 ml OutputOutput Total 1 ml BalanceBalance 739 ml Exam Constitutional: other (Obese female lying in bed. In mild distress) Head: normocephalic, atraumatic Eyes: EOMI, PERRL Respiratory: clear to auscultation, normal air movement Cardiovascular: regular rate and rhythm, nl pulses Gastrointestinal: soft, tender Extremities: normal pulses LIS MEDINA MD Aug 23, 2018 05:24
[2018-08-23] MEDS ORDERED: GLUCOSE GEL 15 GRAM TUBE BUCCAL PRN (08:00)
[2018-08-23] MEDS ORDERED: GLUCAGON 1 MG INJ IM PRN (08:00)
[2018-08-23] MEDS: INSULIN ASPART [NOVOLOG] 3 ML PEN SC SCH ×4 (08:00→20:50)
[2018-08-23] MEDS ORDERED: DEXTROSE 50% 50 ML SYRINGE IV PRN ×2 (08:00)
[2018-08-23] MEDS ORDERED: GLUCOSE GEL 15 GRAM TUBE PO PRN ×2 (08:00)
[2018-08-23 08:14] VITALS: BP 122/58; PULSE 92; RESP 16
[2018-08-23] MEDS: LEVOFLOXACIN 500MG/D5W (PMX) 100 ML IVPB SCH (08:33)
[2018-08-23] MEDS: HEPARIN 5,000 UNIT/1 ML VIAL SC SCH ×2 (08:34→20:52)
[2018-08-23 14:38] VITALS: BP 101/58; PULSE 85; RESP 16
--- NOTE | 2018-08-23 18:25 | PN ---
Date/Time of Note Date/Time of Note DATE: 08/23/18 TIME: 18:11 Assessment/Plan VTE Prophylaxis Risk score (from Ns)>0 risk: 3 SCD applied (from Ns): Yes SCD contraindicated: low risk/ambulating Pharmacological prophylaxis: NA/contraindicated Pharm contraindication: low risk/ambulating Lines/Catheters IV [facility] (from [facility] Peripheral IV Urinary Cath still in place: No Assessment/Plan Hospital Course Assessment and plan 1. Abdominal pain, unknown etiology. No evidence of acute abdomen. 2. History of H. pylori gastritis. Will retest. And ask patient to visit GI in follow-up 3. 2 diabetes 4. Metabolic syndrome 5. History of pancreatitis 6. Major depression 7. Dyslipidemia 8. Asthma 10. Left function function? CKD? 11. Chronic cholelithiasis/cholecystitis? 12. Hepatic steatosis S: Feels a little better. Denies any contributing factors to her pain. Denies any recent GI bleed. Doubly home tomorrow O: Vital signs stable PE No pallor JVD icterus adenopathy Regular Clear Bowel sounds diminished nontender nondistended no RRG overweight No edema Result Diagram: 08/23/18 0745 08/23/18 0745 Results 24hrs Laboratory Tests Test 08/22/18 20:58 08/22/18 20:59 08/22/18 22:16 08/22/18 22:29 Prothrombin Time 12.7 Prothrombin Time 1.0 Ratio INR International 0.94 Normalized Ratio Activated 29.2 Partial Thrombopl ast Time Sodium Level 140 Potassium Level 4.2 Chloride Level 102 Carbon Dioxide 29 Level Anion Gap 9 Blood Urea 13 Nitrogen Creatinine 0.73 Est Glomerular > 60 Filtrat Rate mL/min Glucose Level 107 Lactic Acid Level 2.8 *H Calcium Level 8.8 Total Bilirubin 0.5 Direct Bilirubin 0.00 Indirect 0.5 Bilirubin Aspartate Amino 49 H Transf (AST/SGOT) Alanine 31 Aminotransferase (ALT/SGPT) Alkaline 202 H Phosphatase Troponin I < 0.012 Total Protein 8.5 H Albumin 4.1 Globulin 4.40 H Albumin/Globulin 0.93 Ratio Lipase 86 White Blood Count 19.3 #H Red Blood Count 4.68 Hemoglobin 12.6 Hematocrit 40.0 Mean Corpuscular 85.5 Volume Mean Corpuscular 26.9 L Hemoglobin Mean Corpuscular 31.5 L Hemoglobin Concen t Red Cell 16.5 H Distribution Width Platelet Count 308 Mean Platelet 9.7 Volume Immature 0.600 H Granulocytes % Neutrophils % 81.9 H Lymphocytes % 12.2 L Monocytes % 4.2 Eosinophils % 0.9 Basophils % 0.2 Nucleated Red 0.0 Blood Cells % Immature 0.120 H Granulocytes # Neutrophils # 15.8 H Lymphocytes # 2.4 Monocytes # 0.8 Eosinophils # 0.2 Basophils # 0.0 Nucleated Red 0.0 Blood Cells # Urine Color YELLOW Urine Clarity SLIGHTLY CLOUDY A Urine pH 5.0 Urine Specific 1.018 [place] Urine Ketones NEGATIVE Urine Nitrite NEGATIVE Urine Bilirubin NEGATIVE Urine NEGATIVE Urobilinogen Urine Leukocyte NEGATIVE Esterase Urine Microscopic 1 RBC Urine Microscopic 1 WBC Urine Squamous FEW Epithelial Cells Urine Bacteria FEW A Urine Mucus FEW A Urine Hemoglobin NEGATIVE Urine Glucose NEGATIVE Urine Total NEGATIVE Protein Bedside Urine pH 5.5 (LAB) Bedside Urine 1+ H Protein (LAB) Bedside Urine Negative Glucose (UA) Bedside Urine Trace H Ketones (LAB) Bedside Urine Negative Blood Bedside Urine Negative Nitrite (LAB) Bedside Urine Negative Leukocyte Esteras e (L Test 08/22/18 22:44 08/23/18 01:46 08/23/18 07:45 08/23/18 08:17 Lactic Acid Level 1.3 1.1 White Blood Count 10.0 # Red Blood Count 4.13 L Hemoglobin 11.2 L Hematocrit 35.6 L Mean Corpuscular 86.2 Volume Mean Corpuscular 27.1 L Hemoglobin Mean Corpuscular 31.5 L Hemoglobin Concen t Red Cell 16.7 H Distribution Width Platelet Count 250 Mean Platelet 9.9 Volume Immature 0.500 H Granulocytes % Neutrophils % 78.3 H Lymphocytes % 14.4 L Monocytes % 4.5 Eosinophils % 2.1 Basophils % 0.2 Nucleated Red 0.0 Blood Cells % Immature 0.050 H Granulocytes # Neutrophils # 7.8 H Lymphocytes # 1.4 Monocytes # 0.5 Eosinophils # 0.2 Basophils # 0.0 Nucleated Red 0.0 Blood Cells # Sodium Level 140 Potassium Level 3.9 Chloride Level 104 Carbon Dioxide 28 Level Anion Gap 8 Blood Urea 11 Nitrogen Creatinine 0.62 Est Glomerular > 60 Filtrat Rate mL/min Glucose Level 84 Calcium Level 7.8 L Phosphorus Level 3.1 Magnesium Level 2.0 Total Bilirubin 0.4 Direct Bilirubin 0.00 Indirect 0.4 Bilirubin Aspartate Amino 50 H Transf (AST/SGOT) Alanine 29 Aminotransferase (ALT/SGPT) Alkaline 145 H Phosphatase Total Protein 7.1 # Albumin 3.3 Globulin 3.80 H Albumin/Globulin 0.86 Ratio Bedside Glucose 81 Test 08/23/18 12:23 08/23/18 17:07 Bedside Glucose 124 90 Exam/Review of Systems Exam Vitals Vital Signs Date Temp Pulse Resp B/P (MAP) Pulse Ox O2 O2 Flow FiO2 Time Delivery Rate 08/23/18 98.5 85 16 101/58 94 Room Air 14:38 (72) Intake and Output 08/22/18 08/22/18 08/23/18 1515:00 23:00 07:00 IntakeIntake Total 740 ml OutputOutput Total 1 ml BalanceBalance 739 ml Results Results 24hrs Laboratory Tests Test 08/22/18 20:58 08/22/18 20:59 08/22/18 22:16 08/22/18 22:29 Prothrombin Time 12.7 Prothrombin Time 1.0 Ratio INR International 0.94 Normalized Ratio Activated 29.2 Partial Thrombopl ast Time Sodium Level 140 Potassium Level 4.2 Chloride Level 102 Carbon Dioxide 29 Level Anion Gap 9 Blood Urea 13 Nitrogen Creatinine 0.73 Est Glomerular > 60 Filtrat Rate mL/min Glucose Level 107 Lactic Acid Level 2.8 *H Calcium Level 8.8 Total Bilirubin 0.5 Direct Bilirubin 0.00 Indirect 0.5 Bilirubin Aspartate Amino 49 H Transf (AST/SGOT) Alanine 31 Aminotransferase (ALT/SGPT) Alkaline 202 H Phosphatase Troponin I < 0.012 Total Protein 8.5 H Albumin 4.1 Globulin 4.40 H Albumin/Globulin 0.93 Ratio Lipase 86 White Blood Count 19.3 #H Red Blood Count 4.68 Hemoglobin 12.6 Hematocrit 40.0 Mean Corpuscular 85.5 Volume Mean Corpuscular 26.9 L Hemoglobin Mean Corpuscular 31.5 L Hemoglobin Concen t Red Cell 16.5 H Distribution Width Platelet Count 308 Mean Platelet 9.7 Volume Immature 0.600 H Granulocytes % Neutrophils % 81.9 H Lymphocytes % 12.2 L Monocytes % 4.2 Eosinophils % 0.9 Basophils % 0.2 Nucleated Red 0.0 Blood Cells % Immature 0.120 H Granulocytes # Neutrophils # 15.8 H Lymphocytes # 2.4 Monocytes # 0.8 Eosinophils # 0.2 Basophils # 0.0 Nucleated Red 0.0 Blood Cells # Urine Color YELLOW Urine Clarity SLIGHTLY CLOUDY A Urine pH 5.0 Urine Specific 1.018 [place] Urine Ketones NEGATIVE Urine Nitrite NEGATIVE Urine Bilirubin NEGATIVE Urine NEGATIVE Urobilinogen Urine Leukocyte NEGATIVE Esterase Urine Microscopic 1 RBC Urine Microscopic 1 WBC Urine Squamous FEW Epithelial Cells Urine Bacteria FEW A Urine Mucus FEW A Urine Hemoglobin NEGATIVE Urine Glucose NEGATIVE Urine Total NEGATIVE Protein Bedside Urine pH 5.5 (LAB) Bedside Urine 1+ H Protein (LAB) Bedside Urine Negative Glucose (UA) Bedside Urine Trace H Ketones (LAB) Bedside Urine Negative Blood Bedside Urine Negative Nitrite (LAB) Bedside Urine Negative Leukocyte Esteras e (L Test 08/22/18 22:44 08/23/18 01:46 08/23/18 07:45 08/23/18 08:17 Lactic Acid Level 1.3 1.1 White Blood Count 10.0 # Red Blood Count 4.13 L Hemoglobin 11.2 L Hematocrit 35.6 L Mean Corpuscular 86.2 Volume Mean Corpuscular 27.1 L Hemoglobin Mean Corpuscular 31.5 L Hemoglobin Concen t Red Cell 16.7 H Distribution Width Platelet Count 250 Mean Platelet 9.9 Volume Immature 0.500 H Granulocytes % Neutrophils % 78.3 H Lymphocytes % 14.4 L Monocytes % 4.5 Eosinophils % 2.1 Basophils % 0.2 Nucleated Red 0.0 Blood Cells % Immature 0.050 H Granulocytes # Neutrophils # 7.8 H Lymphocytes # 1.4 Monocytes # 0.5 Eosinophils # 0.2 Basophils # 0.0 Nucleated Red 0.0 Blood Cells # Sodium Level 140 Potassium Level 3.9 Chloride Level 104 Carbon Dioxide 28 Level Anion Gap 8 Blood Urea 11 Nitrogen Creatinine 0.62 Est Glomerular > 60 Filtrat Rate mL/min Glucose Level 84 Calcium Level 7.8 L Phosphorus Level 3.1 Magnesium Level 2.0 Total Bilirubin 0.4 Direct Bilirubin 0.00 Indirect 0.4 Bilirubin Aspartate Amino 50 H Transf (AST/SGOT) Alanine 29 Aminotransferase (ALT/SGPT) Alkaline 145 H Phosphatase Total Protein 7.1 # Albumin 3.3 Globulin 3.80 H Albumin/Globulin 0.86 Ratio Bedside Glucose 81 Test 08/23/18 12:23 08/23/18 17:07 Bedside Glucose 124 90 Medications Medication Current Medications IV Flush (NS 3 ml) 3 ml PER PROTOCOL IV ; Start 08/22/18 at 23:30 Ondansetron HCl (Zofran Inj) 4 mg Q6H PRN IV NAUSEA/VOMITING Last administered on 08/23/18at 02:30; Admin Dose 4 MG; Start 08/22/18 at 23:30 Acetaminophen (Tylenol Tab) 650 mg Q6H PRN PO .PAIN 1-3 OR TEMP; Start 08/22/18 at 23:30 Acetaminophen/ Hydrocodone Bitart ([place] (5/325)) 1 tab Q6H PRN PO .MOD PAIN 4- 6; Start 08/22/18 at 23:30 Acetaminophen/ Hydrocodone Bitart ([place] (5/325)) 2 tab Q6H PRN PO .SEVERE PAIN 7-10 Last administered on 08/23/18at 08:31; Admin Dose 2 TAB; Start 08/22/18 at 23:30 Famotidine (Pepcid) 20 mg Q12 PO Last administered on 08/23/18at 08:31; Admin Dose 20 MG; Start 08/22/18 at 23:30 Heparin Sodium (Porcine) (Heparin (5000 Units/1ml)) 5,000 unit Q12 SC Last administered on 08/23/18at 08:34; Admin Dose 5,000 UNIT; Start 08/23/18 at 09:00 Diagnostic Test (Pha) (Accu-Chek) 1 ea 02 XX ; Start 08/24/18 at 02:00 Insulin Aspart (Novolog Insulin Pen) NOVOLOG *MILD* ALGORITHM WITH MEALS BEDTIME SC ; Start 08/23/18 at 08:00 Levofloxacin/ Dextrose 100 ml @ 100 mls/hr DAILY IVPB Last administered on 08/23/18at 08:33; Admin Dose 100 MLS/HR; Start 08/23/18 at 09:00 Miscellaneous Information 1 ea NOTE XX ; Start 08/23/18 at 08:00 Glucose (Glutose) 15 gm Q15M PRN PO DECREASED GLUCOSE; Start 08/23/18 at 08:00 Glucose (Glutose) 22.5 gm Q15M PRN PO DECREASED GLUCOSE; Start 08/23/18 at 08:00 Dextrose (D50w Syringe) 25 ml Q15M PRN IV DECREASED GLUCOSE; Start 08/23/18 at 08:00 Dextrose (D50w Syringe) 50 ml Q15M PRN IV DECREASED GLUCOSE; Start 08/23/18 at 08:00 Glucagon (Glucagen) 1 mg Q15M PRN IM DECREASED GLUCOSE; Start 08/23/18 at 08:00 Glucose (Glutose) 15 gm Q15M PRN BUCCAL DECREASED GLUCOSE; Start 08/23/18 at 08:00 MAGGIE HOWARD MD Aug 23, 2018 18:25
[2018-08-23 20:00] VITALS: BP 110/55; PULSE 91; RESP 18
[2018-08-24] MEDS: ACCU-CHEK XX SCH (02:00)
[2018-08-24 02:20] VITALS: BP 112/60; PULSE 84; RESP 18
[2018-08-24] MEDS: HYDROCODONE/APAP (5/325) TAB PO PRN ×3 (05:13→20:27)
[2018-08-24 07:51] VITALS: BP 95/50; PULSE 86; RESP 20
[2018-08-24] MEDS: INSULIN ASPART [NOVOLOG] 3 ML PEN SC SCH ×4 (08:00→20:21)
[2018-08-24] MEDS: LEVOFLOXACIN 500MG/D5W (PMX) 100 ML IVPB SCH (08:53)
[2018-08-24] MEDS: FAMOTIDINE 20 MG TAB PO SCH (08:53)
[2018-08-24] MEDS: HEPARIN 5,000 UNIT/1 ML VIAL SC SCH ×2 (08:58→17:27)
[2018-08-24] MEDS ORDERED: ALBUTEROL 0.083% (NEB) 2.5 MG/3 ML AMP HHN STA (11:51)
[2018-08-24] MEDS ORDERED: ALBUTEROL 0.083% (NEB) 2.5 MG/3 ML AMP HHN PRN (12:00)
--- NOTE | 2018-08-24 12:01 | PN ---
Date/Time of Note Date/Time of Note DATE: 08/24/18 TIME: 11:45 Assessment/Plan VTE Prophylaxis Risk score (from Nsg)>0 risk: 4 SCD applied (from Nsg): Yes Pharmacological prophylaxis: LMWH Lines/Catheters IV Catheter Type (from Nrsg): Peripheral IV Urinary Cath still in place: No Assessment/Plan Hospital Course 53-year-old female who presented to the emergency room with a history of fevers, abdominal pain and bilateral flank region that radiated to bilateral pelvic region, with also dysuria who was admitted for sepsis and concern for possible urinary tract infection. Extensive workup including CT of the abdomen and pelvis with angiography as well as extensive abdominal ultrasound has not shown any clear source of her pain. Bilateral flank pain has improved at this time, patient still having point tenderness in her right upper quadrant area in the mid axillary line. Patient is also still endorsing nausea. She is currently managed as follows: 1. Abdominal pain without clear cause, I have strong suspicion for past kidney stone. Urinalysis is not very informative however. 2. Sepsis/systemic inflammatory response syndrome: Improved -This may also be related to a kidney stone 3. Fatty liver with hepatomegaly and transaminitis with AST approximately double ALT and elevation in alkaline phosphatase -CT and ultrasound did not show evidence of gallstones -Lipase level within normal limits 4. History of asthma 5. Diabetes mellitus type 2 rate good in-house control 6. Dyslipidemia: 7. History of pancreatitis February 2018 8. Chronic gastritis confirmed on pathology February 2018 9. History of H pylori March 2016 Plan: Causes of abdominal pain can include a passed kidney stone versus diabetic neuropathy We will put on scheduled Reglan therapy to hopefully help with nausea, will consider GI consultation. Follow-up H. pylori testing Continue pain control and supportive care We will also treat empirically for constipation Further intervention as the clinical course. Await patient's clinical improvement prior to discharge. Result Diagram: 08/24/18 0556 08/24/18 0556 Results 24hrs Laboratory Tests Test 08/23/18 12:23 08/23/18 17:07 08/23/18 20:50 08/24/18 05:56 Bedside Glucose 124 90 115 White Blood Count 7.5 # Red Blood Count 4.22 Hemoglobin 11.5 L Hematocrit 36.6 L Mean Corpuscular 86.7 Volume Mean Corpuscular 27.3 L Hemoglobin Mean Corpuscular 31.4 L Hemoglobin Concent Red Cell 16.6 H Distribution Width Platelet Count 249 Mean Platelet Volume 10.0 Immature 0.500 H Granulocytes % Neutrophils % 58.2 Lymphocytes % 27.9 Monocytes % 7.1 Eosinophils % 6.0 Basophils % 0.3 Nucleated Red Blood 0.0 Cells % Immature 0.040 H Granulocytes # Neutrophils # 4.3 Lymphocytes # 2.1 Monocytes # 0.5 Eosinophils # 0.5 Basophils # 0.0 Nucleated Red Blood 0.0 Cells # Sodium Level 139 Potassium Level 4.2 Chloride Level 106 Carbon Dioxide Level 28 Anion Gap 5 Blood Urea Nitrogen 10 Creatinine 0.65 Est Glomerular > 60 Filtrat Rate mL/min Glucose Level 133 # Lactic Acid Level 1.0 Calcium Level 8.2 L Total Bilirubin 0.3 Direct Bilirubin 0.00 Indirect Bilirubin 0.3 Aspartate Amino 67 H Transf (AST/SGOT) Alanine 40 Aminotransferase (AL T/SGPT) Alkaline Phosphatase 178 H Total Protein 7.0 Albumin 3.2 L Globulin 3.80 H Albumin/Globulin 0.84 Ratio Test 08/24/18 08:47 Bedside Glucose 108 Subjective 24 Hr Interval Summary Free Text/Dictation still c/o abd pain and nausea Exam/Review of Systems Exam Vitals Vital Signs Date Temp Pulse Resp B/P (MAP) Pulse Ox O2 O2 Flow FiO2 Time Delivery Rate 08/24/18 98.2 86 20 95/50 (65) 97 07:51 08/24/18 Room Air 02:20 Intake and Output 08/23/18 08/23/18 08/24/18 1515:00 23:00 07:00 IntakeIntake Total 1000 ml 500 ml BalanceBalance 1000 ml 500 ml Exam Constitutional: alert, oriented, obese, anxious Head: atraumatic, normocephalic Neck: non-tender, supple Respiratory: clear to auscultation Cardiovascular: regular rate and rhythm Gastrointestinal: S/ point tenderness, RUQ, Mid axillary line / obese, non tympanic / +BS Extremities: no edema, good radial pulses Results Results 24hrs Laboratory Tests Test 08/23/18 12:23 08/23/18 17:07 08/23/18 20:50 08/24/18 05:56 Bedside Glucose 124 90 115 White Blood Count 7.5 # Red Blood Count 4.22 Hemoglobin 11.5 L Hematocrit 36.6 L Mean Corpuscular 86.7 Volume Mean Corpuscular 27.3 L Hemoglobin Mean Corpuscular 31.4 L Hemoglobin Concent Red Cell 16.6 H Distribution Width Platelet Count 249 Mean Platelet Volume 10.0 Immature 0.500 H Granulocytes % Neutrophils % 58.2 Lymphocytes % 27.9 Monocytes % 7.1 Eosinophils % 6.0 Basophils % 0.3 Nucleated Red Blood 0.0 Cells % Immature 0.040 H Granulocytes # Neutrophils # 4.3 Lymphocytes # 2.1 Monocytes # 0.5 Eosinophils # 0.5 Basophils # 0.0 Nucleated Red Blood 0.0 Cells # Sodium Level 139 Potassium Level 4.2 Chloride Level 106 Carbon Dioxide Level 28 Anion Gap 5 Blood Urea Nitrogen 10 Creatinine 0.65 Est Glomerular > 60 Filtrat Rate mL/min Glucose Level 133 # Lactic Acid Level 1.0 Calcium Level 8.2 L Total Bilirubin 0.3 Direct Bilirubin 0.00 Indirect Bilirubin 0.3 Aspartate Amino 67 H Transf (AST/SGOT) Alanine 40 Aminotransferase (AL T/SGPT) Alkaline Phosphatase 178 H Total Protein 7.0 Albumin 3.2 L Globulin 3.80 H Albumin/Globulin 0.84 Ratio Test 08/24/18 08:47 Bedside Glucose 108 Imaging Imaging PROCEDURE: US Abdomen. CLINICAL INDICATION: abdominal pain TECHNIQUE: Multiple real-time images were acquired of the patient's right upper quadrant abdomen and retroperitoneum utilizing a high resolution transducer. COMPARISON: CT 08/22/2018; US ABDOMEN 05/25/2018 FINDINGS: The liver demonstrates increased echogenicity. The liver is enlarged in size and no focal solid lesions are seen. The liver measures 18.2 cm in length. The portal vein is patent with normal direction of flow. No intrahepatic biliary dilatation is seen. No gallstones are identified within the gallbladder. There is no pericholecystic fluid or gallbladder wall thickening. The common bile duct measures 4 mm in maximal dimension. The visualized portions of the pancreas are unremarkable. The tail of the pancreas is not seen. No free fluid is identified. The right kidney is normal in size, and demonstrate normal echogenicity and cortical thickness. The right kidney measures 10.6 cm in long dimension. There is no evidence of hydronephrosis. There are no kidney stones. RPTAT: AA IMPRESSION: Mild hepatomegaly with diffuse fatty liver. No evidence of gallstones. .Edy Xie MD, MD Date Time Electronically viewed and signed by .Edy Xie MD, MD on 08/23/2018 00:28 .S/ CC: ISRRAEL GUAN MD [id number] abdominal angiography IMPRESSION: No evidence of abdominal aortic aneurysm. No focal stenosis noted in the bilateral lower extremity arteries. Widely patent mesenteric arteries. Fatty infiltration of the liver. .Edy Xie MD, MD Date Time Electronically viewed and signed by .Edy Xie MD, MD on 08/23/2018 00:32 .S/ PROCEDURE: CT Abdomen and Pelvis without contrast. CLINICAL INDICATION: Possible sepsis TECHNIQUE: CT scan of the abdomen and pelvis was performed on a multi-detector high-resolution CT scanner. The patient was scanned without contrast administration. Coronal and sagittal reformatted images were obtained from the axial source images. Images were reviewed on a high-resolution PACS workstation. The total exam CTDI equals 23 mGy and the total exam DLP equals 1293 mGy-cm. DICOM images are available. 3-D reconstructions were not performed. One or more of the following dose reduction techniques were utilized: 1.) Automated exposure control 2.) Adjustment of the mA +/- kV according to patient's size 3.) Use of iterative reconstruction technique. COMPARISON: None. FINDINGS: CT abdomen: Heart (where visible): Unremarkable. Lung bases: No evidence of pneumonia, mass, pleural effusion. Liver: Liver is enlarged and hypo attenuating. No visible focal mass. Biliary ductal system: No evidence of significant dilatation. Gallbladder: No wall thickening, visible intraluminal stone, or pericholecystic inflammatory change. Pancreas: Unremarkable. Stomach: No identifiable focal mass or gross wall thickening. Spleen: No gross splenomegaly. Abdominal colon: Normal in caliber and course. Abdominal small bowel: Normal in caliber, course, and mucosal pattern. Adrenal glands: No visible masses. Right Kidney: Normal in size and contour without focal mass or collecting system dilatation. No visible calcifications. Left kidney: Normal in size and contour without focal mass or collecting system dilatation. No visible calcifications. Abdominal aorta: Normal caliber. Lymph nodes: No significantly enlarged nodes. CT pelvis: Pelvic colon: Normal in caliber and course. No evidence of inflammatory change. Pelvic small bowel: Normal in caliber and course. Appendix: Not identified. No evidence of inflammation. Urinary bladder: Normal in size and contour without visible wall thickening. Reproductive structures: The uterus is small. There are no adnexal masses. There is no free fluid in the pelvis. Bony structures included in the scan: No clinically significant abnormalities. IMPRESSION: 1. Hepatomegaly and diffuse hepatic steatosis. 2. Otherwise unremarkable CT of the abdomen and pelvis with no evidence of b owel obstruction, bowel perforation, urinary tract stone, urinary tract obstruction, or focal inflammatory process. RPTAT:AAJJ Garyly David, Physician Date Time Electronically viewed and signed by Vincenzo Hernandez Physician on 08/22/2018 22:04 GW/ CC: ISRRAEL GUAN MD Medications Medication Current Medications IV Flush (NS 3 ml) 3 ml PER PROTOCOL IV ; Start 08/22/18 at 23:30 Ondansetron HCl (Zofran Inj) 4 mg Q6H PRN IV NAUSEA/VOMITING Last administered on 08/23/18at 02:30; Admin Dose 4 MG; Start 08/22/18 at 23:30 Acetaminophen (Tylenol Tab) 650 mg Q6H PRN PO .PAIN 1-3 OR TEMP; Start 08/22/18 at 23:30 Acetaminophen/ Hydrocodone Bitart ([place] (5/325)) 1 tab Q6H PRN PO .MOD PAIN 4- 6; Start 08/22/18 at 23:30 Acetaminophen/ Hydrocodone Bitart ([place] (5/325)) 2 tab Q6H PRN PO .SEVERE PAIN 7-10 Last administered on 08/24/18at 11:27; Admin Dose 2 TAB; Start 08/22/18 at 23:30 Famotidine (Pepcid) 20 mg Q12 PO Last administered on 08/24/18at 08:53; Admin Dose 20 MG; Start 08/22/18 at 23:30 Heparin Sodium (Porcine) (Heparin (5000 Units/1ml)) 5,000 unit Q12 SC Last administered on 08/24/18at 08:58; Admin Dose 5,000 UNIT; Start 08/23/18 at 09:00 Diagnostic Test (Pha) (Accu-Chek) 1 ea 02 XX ; Start 08/24/18 at 02:00 Insulin Aspart (Novolog Insulin Pen) NOVOLOG *MILD* ALGORITHM WITH MEALS BEDTIME SC ; Start 08/23/18 at 08:00 Levofloxacin/ Dextrose 100 ml @ 100 mls/hr DAILY IVPB Last administered on 08/24/18at 08:53; Admin Dose 100 MLS/HR; Start 08/23/18 at 09:00 Miscellaneous Information 1 ea NOTE XX ; Start 08/23/18 at 08:00 Glucose (Glutose) 15 gm Q15M PRN PO DECREASED GLUCOSE; Start 08/23/18 at 08:00 Glucose (Glutose) 22.5 gm Q15M PRN PO DECREASED GLUCOSE; Start 08/23/18 at 08:00 Dextrose (D50w Syringe) 25 ml Q15M PRN IV DECREASED GLUCOSE; Start 08/23/18 at 08:00 Dextrose (D50w Syringe) 50 ml Q15M PRN IV DECREASED GLUCOSE; Start 08/23/18 at 08:00 Glucagon (Glucagen) 1 mg Q15M PRN IM DECREASED GLUCOSE; Start 08/23/18 at 08:00 Glucose (Glutose) 15 gm Q15M PRN BUCCAL DECREASED GLUCOSE; Start 08/23/18 at 0 8:00 SHADY ABERNATHY Aug 24, 2018 11:57
[2018-08-24] MEDS: POLYETHYLENE GLYCOL 17 GM PACKET PO SCH (13:21)
[2018-08-24] MEDS: METOCLOPRAMIDE 10 MG INJ IV SCH ×3 (13:22→23:12)
[2018-08-24] MEDS: PANTOPRAZOLE 40 MG INJ IV SCH (13:23)
[2018-08-24 14:34] VITALS: BP 120/62; PULSE 91; RESP 19
[2018-08-24 19:43] VITALS: BP 105/55; PULSE 88; RESP 20
[2018-08-24] MEDS: morphine 2 MG INJ IV PRN (23:11)
[2018-08-25] MEDS: HEPARIN 5,000 UNIT/1 ML VIAL SC SCH ×2 (00:10→08:32)
[2018-08-25] MEDS: ACCU-CHEK XX SCH (01:16)
[2018-08-25 01:35] VITALS: BP 100/64; PULSE 84; RESP 20
[2018-08-25] MEDS: morphine 2 MG INJ IV PRN (04:46)
[2018-08-25] MEDS: PANTOPRAZOLE 40 MG INJ IV SCH (05:30)
[2018-08-25] MEDS: METOCLOPRAMIDE 10 MG INJ IV SCH ×2 (05:31→12:18)
[2018-08-25 07:41] VITALS: BP 109/68; PULSE 82; RESP 19
[2018-08-25] MEDS: INSULIN ASPART [NOVOLOG] 3 ML PEN SC SCH ×2 (08:00→12:48)
[2018-08-25] MEDS: POLYETHYLENE GLYCOL 17 GM PACKET PO SCH (08:27)
[2018-08-25] MEDS: LEVOFLOXACIN 500MG/D5W (PMX) 100 ML IVPB SCH (09:16)
--- NOTE | 2018-08-25 12:38 | DS ---
Date/Time of Note Date/Time of Note DATE: 08/25/18 TIME: 12:33 Discharge Summary Admission/Discharge Info Admit Date/Time Aug 22, 2018 at 22:22 Discharge Date/Time Discharge Diagnosis 53-year-old female who presented to the emergency room with a history of fevers, abdominal pain and bilateral flank region that radiated to bilateral pelvic region, with also dysuria who was admitted for sepsis and concern for possible urinary tract infection. Extensive workup including CT of the abdomen and pelvis with angiography as well as extensive abdominal ultrasound has not shown any clear source of her pain. Bilateral flank pain has improved at this time, patient still having point tenderness in her right upper quadrant area in the mid axillary line. Patient is also still endorsing nausea. She is currently managed as follows: 1. Abdominal pain without clear cause: improved 2. Sepsis/systemic inflammatory response syndrome likely 2/2 pyelonephritis 3. Fatty liver with hepatomegaly and transaminitis with AST approximately double ALT and elevation in alkaline phosphatase -CT and ultrasound did not show evidence of gallstones -Lipase level within normal limits 4. History of asthma 5. Diabetes mellitus type 2 rate good in-house control 6. Dyslipidemia: 7. History of pancreatitis February 2018 8. Chronic gastritis confirmed on pathology February 2018 9. History of H pylori March 2016 10. chronic Rheumatoid arthritis . Patient Condition: Stable Consults None . . Hospital Course 53-year-old female who was admitted for workup of nonspecific abdominal pain. Abdominal pain was located in the epigastric, right upper quadrant area radiating posteriorly bilateral flanks and down to bilateral pelvic area. It was necessary dysuria and a lot of polyuria. Extensive workup included a CT of the abdomen and pelvis abdominal angiography as well as abdominal ultrasound but the only findings were hepatomegaly with fat fatty liver. Concurrently had LFTs are mildly elevated with AST being approximately double her ALT and mild elevation of alkaline phosphatase is also consistent with the fatty liver as well. At this time her pain is better, though she still states she had a few exacerbations earlier today but now is controlled with the pain medicine. As no further intervention is warranted on the inpatient basis, she has been discharged to follow-up with primary care doctor and gastroenterology as outpatient. Patient's pain could be related to a passed kidney stone versus diabetic nephropathy, the patient also has a history of rheumatoid arthritis for which she takes prednisone as outpatient. Patient will be maintained on stool softeners and will be treated empirically for pyelonephritis and if pain is persistent or recurs patient is advised to seek help with her primary care doctor or return to the emergency room. This was all expressed to her in detail, questions were answered, at this time patient has been evaluated and is stable for discharge. Patient also had a hx of Hpylori + in stool back in 2010, and so a repeat was sent. It's however still pending at this time, A message was left with lab to contact me or my office with a positive result and patient will be contacted for treatment if indicated . Home Meds Active Scripts Acetaminophen* (Tylenol*) 325 Mg Tablet, 2 TAB PO Q6 PRN for PAIN AND OR IVET VATED TEMP, #20 TAB Prov:LIS ALEJANDRE PA-C 06/21/18 Reported Medications [Inhaler] No Conflict Check, DAILY PRN for SHORTNESS OF BREATH 06/17/18 [Cholesterol Med] No Conflict Check, PO DAILY 06/17/18 [Depression Med] No Conflict Check, PO DAILY 06/17/18 [Htn Med] No Conflict Check, PO DAILY 06/17/18 Follow-up Plan Patient sees gastroenterology Dr. Sesay as outpatient, she is encouraged to follow-up with him and she is also encouraged to follow-up with primary care doctor in the next 1-2 weeks . Primary Care Provider Care Physician No Primary Time spent on discharge: > 30 minutes Pending Labs Laboratory Tests Test 08/24/18 12:41 08/24/18 17:22 08/24/18 20:19 08/25/18 04:41 Bedside 127 173 145 100 Glucose mg/dL (70-220) mg/dL (70-220) mg/dL (70-220) mg/dL (70-220) Test 08/25/18 07:02 08/25/18 08:26 08/25/18 12:17 White Blood 7.6 Count 10^3/ul (4.8-10 .8) Red Blood 4.45 Count 10^6/ul (4.20-5 .40) Hemoglobin 12.0 g/dl (12.0-16.0 ) Hematocrit 38.0 % (37.0-47.0) Mean 85.4 Corpuscular fl (82.0-101.0) Volume Mean 27.0 Corpuscular pg (29.0-33.0) Hemoglobin Mean 31.6 Corpuscular g/dl (32.0-37.0 Hemoglobin Conc ) ent Red Cell 16.4 Distribution % (11.5-14.5) Width Platelet Count 237 10^3/UL (140-41 5) Mean Platelet 10.7 Volume fl (7.4-10.4) Immature 0.400 Granulocytes % % (0.001-0.429) Neutrophils % 54.6 % (39.0-77.0) Lymphocytes % 31.5 % (15.0-51.0) Monocytes % 9.4 % (0.0-11.0) Eosinophils % 3.8 % (0.0-7.0) Basophils % 0.3 % (0.0-2.0) Nucleated Red 0.0 Blood Cells % /100WBC (0.0-0. 0) Immature 0.030 Granulocytes # 10^3/ul (0.0-0. 031) Neutrophils # 4.2 10^3/ul (1.6-7. 5) Lymphocytes # 2.4 10^3/ul (0.8-2. 9) Monocytes # 0.7 10^3/ul (0.3-0. 9) Eosinophils # 0.3 10^3/ul (0.0-0. 5) Basophils # 0.0 10^3/ul (0.0-0. 1) Nucleated Red 0.0 Blood Cells # 10^3/ul (0.0-0. 0) Sodium Level 142 mmol/L (135-144 ) Potassium 3.7 Level mmol/L (3.5-5.1 ) Chloride Level 104 mmol/L (97-110) Carbon Dioxide 28 Level mmol/L (21-31) Anion Gap 10 (5-13) Blood Urea 11 mg/dl (7-20) Nitrogen Creatinine 0.61 mg/dl (0.44-1.0 0) Est Glomerular > 60 Filtrat mL/min (>60) Rate mL/min Glucose Level 106 mg/dl (70-220) Calcium Level 8.7 mg/dl (8.4-10.2 ) Phosphorus 3.5 Level mg/dl (2.5-4.9) Magnesium 2.2 Level mg/dl (1.7-2.5) Total 0.2 Bilirubin mg/dl (0.2-1.3) Direct 0.00 Bilirubin mg/dl (0.00-0.2 0) Indirect 0.2 Bilirubin mg/dl (0-1.1) Aspartate Amino 58 IU/L (15-46) Transf (AST/SGO T) Alanine 35 IU/L (13-69) Aminotransferas e (ALT/SGPT) Alkaline 171 Phosphatase IU/L (42-121) Total Protein 7.6 g/dl (6.1-8.1) Albumin 3.6 g/dl (3.3-4.9) Globulin 4.00 g/dl (1.3-3.2) Albumin/Globuli 0.90 n Ratio Bedside 100 162 Glucose mg/dL (70-220) mg/dL (70-220) SHADY ABERNATHY Aug 25, 2018 12:38
[2018-08-25] MEDS ORDERED: LACT1CAP57 PO (12:41)
[2018-08-25] MEDS ORDERED: PANT40TA3 PO (12:41)
[2018-08-25] MEDS ORDERED: HYDR-3601 PO (12:41)
[2018-08-25] MEDS ORDERED: POLY17PO6 PO (12:41)
[2018-08-25] MEDS ORDERED: LEVO500T10 PO (12:41)
== END 2018-08-25 14:15 | disposition home or self-care (01) | DRG 872 ==
LOC: E/R 20:39 → 5EC 22:22
PROVIDERS: ADMIT Internal Medicine; ATTEND Family Medicine
DX: A41.9 Sepsis, unspecified organism (principal); Z68.42 Body mass index [BMI] 45.0-49.9, adult; N12 Tubulo-interstitial nephritis, not specified as acute or chronic; E88.81 Metabolic syndrome and other insulin resistance; K76.0 Fatty (change of) liver, not elsewhere classified; E78.5 Hyperlipidemia, unspecified; F32.9 Major depressive disorder, single episode, unspecified; E11.9 Type 2 diabetes mellitus without complications; E66.9 Obesity, unspecified; K29.70 Gastritis, unspecified, without bleeding; M06.9 Rheumatoid arthritis, unspecified; Z79.4 Long term (current) use of insulin
CPT/HCPCS: 36415; 71045; 74176; 75635; 76705; 80053; 81001; 81003; 82550; 82962; 83605; 83690; 83735; 84100; 84484; 85025; 85610; 85730; 87086; 87338; 93005; 94640; 94664; 96374; 96375; C9113; J1170; J1644; J1815; J1956; J2270; J2405; J2543; J2765; J7030; Q9967

== ENCOUNTER 2018-09-17 09:38 | Day surgery (SDC) | payer OTHER ==
[2018-09-17] VITALS (13 sets, daily range): BP systolic 115–169; BP diastolic 65–92; PULSE 80–90; RESP 14–26; Ht 144.8 cm; Wt 94.4 kg
[~2018-09-17] VITALS: Ht 144.8 cm; Wt 94.4 kg
--- NOTE | 2018-09-17 06:07 | HPN ---
Date/Time of Note Date/Time of Note DATE: 09/17/18 TIME: 06:07 Interval H&P Admission Note Pt. seen H&P reviewed: No system changes HARINDER DENNIS MD September 17, 2018 06:07
--- NOTE | 2018-09-17 06:09 | OPR ---
Date/Time of Note Date/Time of Note DATE: 09/17/18 TIME: 06:07 Operative Report Procedure Date: September 17, 2018 Preoperative Diagnosis Right shoulder possible rotator cuff tear with adhesive capsulitis Postoperative Diagnosis 1. Right shoulder synovitis with tearing Operation/Procedure Performed 1. Right shoulder arthroscopy with sense of debridement of glenohumeral joint Surgeon see signature line Tinning Equipment Tender Yobani Leung PA-C Anesthesia Type: general Estimated Blood Loss: minimal Transfusion none Specimen None Grafts/Implants See body of operative note Complications none Pt Condition Post Procedure: stable Disposition: PACU Procedure Description FURNITURE RESTORER SURGEON: Yobani Leung PA-C was asked to be present at my request as a result of the complexity associated with this procedure including positioning of the extremities, manipulation of the arthroscope and assistance with time. In my opinion the assistance offered by a surgical physician assistant is insufficient and Mr. Leung should be compensated for his time. PROCEDURE IN DETAIL: Following the administration of general anesthesia supplemented with a peripheral nerve block for postoperative pain control, the patient was examined under anesthesia. Examination of the right shoulder revealed significant stiffness with about 90 degrees of forward flexion with about 80 degrees of abduction and maximal external rotation of about 60 degrees. Passive motion with manipulation was then seen to improve her range of motion to about 130 degrees of forward flexion, 100 degrees of abduction and 90 degrees of external rotation. Internal rotation was improved to 30 degrees. The patient was then placed in the left lateral decubitus position. Sterile prep and drape was then undertaken of the shoulder. Anterior and posterior glenohumeral portals were established. Evaluation of the glenohumeral joint revealed evidence of the prior repair. The rotator cuff repair appeared intact with a solid repair of the supraspinatus. The biggest issue was that there was extensive tearing of the superior and posterior labrum with severe synovitis. Glenohumeral arthroscopy the revealed the evidence of the prior biopsy sips tendon release. In addition, there was some mild diffuse grade 2 changes in the humeral articular surface as well as the glenoid. There was no basia articular cartilage breakdown. The subscapularis subscapularis and the infraspinatus appeared normal. The superior labrum then debrided extensively from the 9:00 to the 3 o'clock position was undertaken down to stable tissue. The severe synovitis was also excised. The subacromial space was then entered and very severe bursal reactive tissue was noted. There was a thickened coracoacromial ligament, with no significant acromial prominence noted. The outer surface of the rotator cuff was then inspected and the prior repair appeared completely intact. In fact, the sutures were difficult to find as a result of the significant coverage of the scar tissue. A gfurther bursectomy was then completed. The joint was then thoroughly irrigated bony debris removed, the deep tissues were approximated using 4-0 Monocryl, followed by a sterile dressing. A sling was then applied. The patient was awakened and transported to the recovery room in stable condition. HARINDER DENNIS MD September 17, 2018 06:09
[~2018-09-17 09:38] MED LIST changes: +DEXAMETHASONE 2 MG TAB PO SCH; +GABAPENTIN 300 MG CAP PO SCH; +HYDR-3601 PO; +LACT1CAP57 PO; +LACTATED RINGER'S 1,000 ML IV SCH; +LEVO500T10 PO; +PANT40TA3 PO; +POLY17PO6 PO; +TRANEXAMIC ACID 1GM/100ML(PMX) 100 ML IVPB SCH; +VANCOMYCIN 1 GM (PMX) 250 ML IVPB SCH
[2018-09-17] MEDS ORDERED: AMIT25TA9 PO (10:11)
[2018-09-17] MEDS ORDERED: MONT10TA24 PO (10:11)
[2018-09-17] MEDS ORDERED: MELO15TA30 PO (10:12)
[2018-09-17] MEDS ORDERED: CHOL500051 PO (10:12)
[2018-09-17] MEDS ORDERED: ALBU18HF INHALATION (10:13)
[2018-09-17] MEDS ORDERED: GABA-526 PO (10:14)
[2018-09-17] MEDS ORDERED: DULO60CA59 PO (10:14)
[2018-09-17] MEDS ORDERED: METF100010 PO (10:14)
[2018-09-17] MEDS ORDERED: OMEP40CA6 PO (10:15)
[2018-09-17] MEDS ORDERED: MEDR2.5T21 PO (10:15)
[2018-09-17] MEDS ORDERED: ESTR0.5T PO (10:16)
[2018-09-17] MEDS ORDERED: CAPT25TA3 PO (10:16)
[2018-09-17] MEDS ORDERED: ATOR40TA68 PO (10:17)
[2018-09-17] MEDS ORDERED: FER325 PO (10:17)
[2018-09-17] MEDS ORDERED: ALEN70TA5 PO (10:18)
[2018-09-17] MEDS ORDERED: GLIM4TAB PO (10:20)
[2018-09-17] MEDS ORDERED: PRED10TA PO (10:20)
[2018-09-17] MEDS ORDERED: MOME13HF2 INHALATION (10:21)
[2018-09-17] MEDS ORDERED: POLY17PO6 PO (10:21)
[2018-09-17] MEDS ORDERED: PANT40TA3 PO (10:22)
[2018-09-17] MEDS ORDERED: EST42.5C VAG (10:23)
[2018-09-17] MEDS ORDERED: INSU100V3 IJ (10:27)
[2018-09-17] MEDS ORDERED: SOD CHLORIDE 0.9% 1,000 ML IV SCH (11:30)
[2018-09-17] MEDS ORDERED: DIPHENHYDRAMINE 50 MG INJ IV ONE (12:00)
--- NOTE | 2018-09-17 13:11 | PREAC ---
Date/Time of Note Date/Time of Note DATE: 09/17/18 TIME: 13:08 Anesthesia Eval and Record Evaluation Time Pre-Procedure Interview DATE: 09/17/18 TIME: 13:08 Age 53 Sex female NPO: 8 hrs Preoperative diagnosis Rt shoulder Rotator cuff tear Planned procedure Rt shoulder arthroscopy Past Medical History Past Medical History: Includes Cardio: HTN, Dyslipidemia Endo: Diabetes Pulm: COPD, Sleep Apnea, Asthma GI: GERD, Morbid obesity Surgery & Anesthesia Issues No known issue Meds Anticoagulation: No Beta Garret within 24 hr: No Reason Beta Garret not given: Pt. not on B-Garret Reported Medications Insulin Regular, Human (Humulin R) 100 Unit/1 Ml Vial, 100 UNIT IJ AC A, VIAL 09/17/18 Estradiol* (Estrace* Vag) 0.01%-42.5GM Vaginal Cream..g., 0.25 APPLIC VAG TWICE A WEEK, TUB 09/17/18 Pantoprazole* (Protonix*) 40 Mg Tablet.dr, 40 MG PO DAILY, TAB 09/17/18 Polyethylene Glycol* (Miralax*) 17 Gm Powd.pack, 17 GM PO DAILY, #30 PACKET 09/17/18 Mometasone-Formoterol (Dulera) 100-5 Mcg - 13 Gm Hfa.aer.ad, 2 PUFFS INHALATION BID, #1 INHALER 09/17/18 Prednisone* (Prednisone*) 10 Mg Tab, 10 MG PO DAILY, TAB 09/17/18 Glimepiride* (Glimepiride*) 4 Mg Tablet, 4 MG PO WITH BREAKFAST DINNE, TAB 09/17/18 Alendronate Sodium* (Fosamax*) 70 Mg Tablet, 70 MG PO EVERY FRIDAY, #4 TAB 09/17/18 Atorvastatin* (Atorvastatin*) 40 Mg Tablet, 40 MG PO QHS, #30 TAB 09/17/18 Ferrous Sulfate* (Ferrous Sulfate*) 325 Mg Tabec, 325 MG PO DAILY, TAB 09/17/18 Captopril* (Captopril*) 25 Mg Tablet, 25 MG PO BID, #60 TAB 09/17/18 Estradiol (Estradiol) 0.5 Mg Tablet, 0.5 MG PO DAILY, TAB 09/17/18 Medroxyprogesterone Acetate* (Medroxyprogesterone Acetate*) 2.5 Mg Tablet, 2.5 MG PO DAILY, TAB 09/17/18 Omeprazole* (Omeprazole*) 40 Mg Capsule.dr, 40 MG PO DAILY, #30 CAP 09/17/18 Metformin Hcl* (Metformin Hcl*) 1,000 Mg Tablet, 1000 MG PO WITH BREAKFAST DINNE, #60 TAB 09/17/18 Duloxetine Hcl* (Duloxetine Hcl*) 60 Mg Capsule.dr, 60 MG PO DAILY, #30 CAP 09/17/18 Gabapentin* (Gabapentin*) 600 Mg Tablet, 1200 MG PO QHS, #180 TAB 09/17/18 Albuterol Sulfate* (Ventolin HFA*) 18 Gm Hfa.aer.ad, 2 PUFF INHALATION Q4H, #1 INHALER 09/17/18 Meloxicam* (Mobic*) 15 Mg Tablet, 15 MG PO DAILY, #30 TAB 09/17/18 Cholecalciferol (Vitamin D3) (Vitamin D3) 50,000 Unit Capsule, 40908 UNIT PO EVERY FRIDAY, CAP 09/17/18 Amitriptyline Hcl* (Amitriptyline Hcl*) 25 Mg Tablet, 25 MG PO QHS, #30 TAB 09/17/18 Montelukast Sodium* (Montelukast Sodium*) 10 Mg Tablet, 10 MG PO QHS, #30 TAB 09/17/18 Discontinued Reported Medications [Inhaler] No Conflict Check, DAILY PRN for SHORTNESS OF BREATH 06/17/18 [Cholesterol Med] No Conflict Check, PO DAILY 06/17/18 [Depression Med] No Conflict Check, PO DAILY 06/17/18 [Htn Med] No Conflict Check, PO DAILY 06/17/18 Discontinued Scripts Lactobacillus Rhamnosus* (Culturelle*) 1 Each Cap.sprink, 1 CAP PO BID, #14 CAP Prov:SHADY ABERNATHY M. 08/25/18 Levofloxacin* (Levofloxacin*) 500 Mg Tablet, 500 MG PO DAILY, #7 TAB Prov:SHADY AEBRNATHY M. 08/25/18 Pantoprazole* (Protonix*) 40 Mg Tablet.dr, 40 MG PO DAILY for 30 Days, #30 TAB 1 Refill Prov:SHADY ABERNATHY M. 08/25/18 Polyethylene Glycol* (Miralax*) 17 Gm Powd.pack, 17 GM PO DAILY, #30 PACKET 2 Refills Prov:SHADY ABERNATHY. 08/25/18 Hydrocodone Bit-Acetaminophen (Hydrocodone Bit-APAP) 5-325MG Tablet, 1 TAB PO Q6H PRN for .MOD PAIN 4-6, #10 TAB Prov:SHADY ABERNATHY. 08/25/18 Acetaminophen* (Tylenol*) 325 Mg Tablet, 2 TAB PO Q6 PRN for PAIN AND OR ELEVATED TEMP, #20 TAB Prov:LIS ALEJANDRE PA-C 06/21/18 Current Medications Gabapentin (Neurontin) 300 mg ONCE PO Last administered on 09/17/18at 11:06; Admin Dose 300 MG; Start 09/17/18 at 06:30; Stop 09/17/18 at 16:00 Dexamethasone (Decadron) 2 mg ONCE PO Last administered on 09/17/18at 11:06; Admin Dose 2 MG; Start 09/17/18 at 06:30; Stop 09/17/18 at 16:00 Sodium Chloride 1,000 ml @ 25 mls/hr Q24H IV Last administered on 09/17/18at 11:36; Admin Dose 25 MLS/HR; Start 09/17/18 at 11:30 Meds reviewed: Yes Allergies Coded Allergies: hydromorphone (Verified Allergy, Intermediate, ITCHING, 09/17/18) vancomycin (Verified Allergy, Mild, rash, trogh eatch, 09/17/18) celecoxib (Verified Allergy, Unknown, SOB, 09/17/18) cephalexin (Verified Allergy, Unknown, 09/17/18) ciprofloxacin (Verified Allergy, Unknown, RASH, 09/17/18) Allergies Reviewed: Yes Labs/Studies Labs Reviewed: Reviewed by anesthesiologist test: Negative Studies: ECG Pre-procedure Exam Last vitals Vital Signs Date Temp Pulse Resp B/P (MAP) Pulse Ox O2 O2 Flow FiO2 Time Delivery Rate 09/17/18 98.7 80 16 115/65 98 Room Air 11:21 (82) Airway: Adequate mouth opening, Adequate thyromental dist Mallampati: Mallampati III Teeth: Normal Lung: Normal Heart: Normal ASA Physical Status ASA physical status: 3 Emergency: None Planned Anesthetic General/MAC: LMA Planned Pain Management Parenteral pain med, Local by surgeon Pre-operative Attestations Prior to commencing anesthesia and surgery, the patient was re-evaluated, there was verification of: *The patient's identity *The results of appropriate recent lab work and preoperative vital signs *The above evaluation not changing prior to induction *Anesthetic plan, risk benefits, alternative and complications discussed with patient/family; questions answered; patient/family understands, accepts and wishes to proceed. VIVIENNE GUERRERO MD September 17, 2018 13:11
[2018-09-17] MEDS ORDERED: MIDAZOLAM 1 MG/ML 2 ML INJ ONE (13:14)
[2018-09-17] MEDS ORDERED: ROPIVACAINE 0.5 % 30 ML VIAL ONE (13:17)
[2018-09-17] MEDS ORDERED: FENTAnyl 50 MCG/ML VIAL ONE ×2 (13:45→14:28)
[2018-09-17] MEDS ORDERED: EPINEPHrine 0.1 MG/ML SYG ONE (13:48)
[2018-09-17] MEDS ORDERED: TRANEXAMIC ACID 1GM/100ML(PMX) 100 ML ONE (13:48)
[2018-09-17] MEDS ORDERED: LIDOCAINE 2% (SDV) 5 ML INJ ONE (14:11)
[2018-09-17] MEDS ORDERED: PROPOFOL 20 ML ONE (14:11)
[2018-09-17] MEDS ORDERED: ROCURONIUM 50 MG INJ ONE (14:11)
[2018-09-17] MEDS ORDERED: GLYCOPYRROLATE 0.4 MG INJ ONE (14:11)
[2018-09-17] MEDS ORDERED: ONDANSETRON 4 MG INJ ONE (14:11)
[2018-09-17] MEDS ORDERED: NEOSTIGMINE 3 MG/3 ML SYRINGE ONE (14:11)
--- NOTE | 2018-09-17 14:12 | PDOCDIS ---
Discharge Instructions DIAGNOSIS Discharge Diagnosis Right shoulder labral tear CONDITION [id number] Patient Condition: [id number] Good HOME CARE INSTRUCTIONS: Rilzk7Tc Diet Instructions: [id number] Regular ACTIVITY: [id number] Activity Restrictions: [id number] Rest between Activity Keep Limb Elevated [id number] Bathing Restrictions: [id number] Shower FOLLOW UP/APPOINTMENTS Follow-up Plan 2 weeks SCHOOL/WORK RELEASE May return to School/Work with: With Restrictions School/Work Release Comment: Sling as necessary HARINDER DENNIS MD September 17, 2018 14:12
--- NOTE | 2018-09-17 14:44 | PAC ---
Date/Time of Note Date/Time of Note DATE: 09/17/18 TIME: 14:43 Post-Anesthesia Notes Post-Anesthesia Note Last documented vital signs Vital Signs Date Temp Pulse Resp B/P (MAP) Pulse Ox O2 O2 Flow FiO2 Time Delivery Rate 09/17/18 90 16 169/92 99 Mask 14:33 (117) 09/17/18 98.0 14:28 Activity: WNL Respiratory function: WNL Cardiovascular function: WNL Mental status: Baseline Pain reasonably controlled: Yes Hydration appropriate: Yes Nausea/Vomiting absent: Yes Comments P:134/56, P:88, Spo2:100%, T:98,9 VIVIENNE GUERRERO MD September 17, 2018 14:44
[2018-09-17] MEDS ORDERED: LABETALOL HCL 20MG INJ ONE (14:45)
[2018-09-17] MEDS ORDERED: MEPERIDINE 25 MG INJ IV PRN (15:00)
[2018-09-17] MEDS ORDERED: hydrALAzine 20 MG INJ IV PRN (15:00)
[2018-09-17] MEDS ORDERED: LABETALOL HCL 20MG INJ IV PRN (15:00)
[2018-09-17] MEDS ORDERED: ONDANSETRON 4 MG INJ IV PRN (15:00)
[2018-09-17] MEDS ORDERED: DIPHENHYDRAMINE 50 MG INJ IV PRN (15:00)
[2018-09-17] MEDS ORDERED: FENTAnyl 50 MCG/ML VIAL IV PRN (15:00)
[2018-09-17] MEDS ORDERED: HYDROCODONE/APAP (5/325) TAB PO PRN (15:30)
== END 2018-09-17 16:46 | disposition home or self-care (01) ==
LOC: SDS 09:38
PROVIDERS: ATTEND Orthopaedic Surgery
DX: M65.811 Other synovitis and tenosynovitis, right shoulder (principal); S43.401D Unspecified sprain of right shoulder joint, subsequent encounter; X58.XXXD Exposure to other specified factors, subsequent encounter; I10 Essential (primary) hypertension; E11.9 Type 2 diabetes mellitus without complications; J44.9 Chronic obstructive pulmonary disease, unspecified; Z79.84 Long term (current) use of oral hypoglycemic drugs; Z79.4 Long term (current) use of insulin
CPT/HCPCS: 29823; 82962; J0171; J1200; J2175; J2250; J2795; J3010; J3370; Z7512; Z7610; J2405; J2710

== ENCOUNTER 2018-10-13 14:30 | Emergency (ER) | payer SELFPAY ==
[~2018-10-13] VITALS: Ht 157.5 cm; Wt 95.5 kg
[~2018-10-13 14:30] MED LIST changes: -ACET325T33 PO; +ALBU18HF INHALATION; +ALEN70TA5 PO; +AMIT25TA9 PO; +ATOR40TA68 PO; +CAPT25TA3 PO; +CHOL500051 PO; -CHOLESTEROL MED PO; -DEPRESSION MED PO; -DEXAMETHASONE 2 MG TAB PO SCH; +DULO60CA59 PO; +EST42.5C VAG; +ESTR0.5T PO; +FER325 PO; +GABA-526 PO; -GABAPENTIN 300 MG CAP PO SCH; +GLIM4TAB PO; -HTN MED PO; -HYDR-3601 PO; -INHALER; +INSU100V3 IJ; -LACT1CAP57 PO; -LACTATED RINGER'S 1,000 ML IV SCH; -LEVO500T10 PO; +MEDR2.5T21 PO; +MELO15TA30 PO; +METF100010 PO; +MOME13HF2 INHALATION; +MONT10TA24 PO; +OMEP40CA6 PO; +PRED10TA PO; -TRANEXAMIC ACID 1GM/100ML(PMX) 100 ML IVPB SCH; -VANCOMYCIN 1 GM (PMX) 250 ML IVPB SCH
[2018-10-13 14:31] VITALS: Ht 157.5 cm; Wt 95.5 kg
[2018-10-13] MEDS ORDERED: SOD CHLORIDE 0.9% 1,000 ML IV STA (14:44)
[2018-10-13] MEDS ORDERED: LORAZEPAM 0.5 MG TAB PO ONE (15:00)
[2018-10-13] MEDS ORDERED: ALBUTEROL 0.083% (NEB) 2.5 MG/3 ML AMP HHN STA (15:47)
[2018-10-13] MEDS ORDERED: POTASSIUM CHLORIDE (SR) 20 MEQ TAB PO STA ×2 (15:51→19:18)
[2018-10-13] MEDS ORDERED: POTASSIUM CHLORIDE 100 ML IVPB ONE (16:00)
[2018-10-13] MEDS ORDERED: IOHEXOL 100 ML ONE (17:07)
[2018-10-13] MEDS ORDERED: SOD CHLORIDE 0.9% 100 ML ONE (17:07)
--- NOTE | 2018-10-13 17:31 | ERD ---
ER Documentation Chief Complaint Chief Complaint cough & short of breath x6 days HPI The patient is a 53-year-old female presenting to the ER because of acute dyspnea, headache, back pain intermittently for the last 5 to 6 days, complains of nasal congestion, nasal discharge and intermittent cough. She denies fever, chills, syncope, near syncope, neck pain, chest pain, abdominal pain, vomiting, dysuria. She does not smoke nor drink Past medical history: Asthma, diabetes mellitus, dyslipidemia, gastritis, rheumatoid arthritis, hepatic steatosis Past surgical history: Right shoulder arthroscopy on September 17, 2018, appendectomy, 1 ROS All systems reviewed and are negative except as per history of present illness. Medications Home Meds Reported Medications Insulin Regular, Human (Humulin R) 100 Unit/1 Ml Vial, 100 UNIT IJ AC A, VIAL 09/17/18 Estradiol* (Estrace* Vag) 0.01%-42.5GM Vaginal Cream..g., 0.25 APPLIC VAG TWICE A WEEK, TUB 09/17/18 Pantoprazole* (Protonix*) 40 Mg Tablet.dr, 40 MG PO DAILY, TAB 09/17/18 Polyethylene Glycol* (Miralax*) 17 Gm Powd.pack, 17 GM PO DAILY, #30 PACKET 09/17/18 Mometasone-Formoterol (Dulera) 100-5 Mcg - 13 Gm Hfa.aer.ad, 2 PUFFS INHALATION BID, #1 INHALER 09/17/18 Prednisone* (Prednisone*) 10 Mg Tab, 10 MG PO DAILY, TAB 09/17/18 Glimepiride* (Glimepiride*) 4 Mg Tablet, 4 MG PO WITH BREAKFAST DINNE, TAB 09/17/18 Alendronate Sodium* (Fosamax*) 70 Mg Tablet, 70 MG PO EVERY FRIDAY, #4 TAB 09/17/18 Atorvastatin* (Atorvastatin*) 40 Mg Tablet, 40 MG PO QHS, #30 TAB 09/17/18 Ferrous Sulfate* (Ferrous Sulfate*) 325 Mg Tabec, 325 MG PO DAILY, TAB 09/17/18 Captopril* (Captopril*) 25 Mg Tablet, 25 MG PO BID, #60 TAB 09/17/18 Estradiol (Estradiol) 0.5 Mg Tablet, 0.5 MG PO DAILY, TAB 09/17/18 Medroxyprogesterone Acetate* (Medroxyprogesterone Acetate*) 2.5 Mg Tablet, 2.5 MG PO DAILY, TAB 09/17/18 Omeprazole* (Omeprazole*) 40 Mg Capsule.dr, 40 MG PO DAILY, #30 CAP 09/17/18 Metformin Hcl* (Metformin Hcl*) 1,000 Mg Tablet, 1000 MG PO WITH BREAKFAST DINNE, #60 TAB 09/17/18 Duloxetine Hcl* (Duloxetine Hcl*) 60 Mg Capsule.dr, 60 MG PO DAILY, #30 CAP 09/17/18 Gabapentin* (Gabapentin*) 600 Mg Tablet, 1200 MG PO QHS, #180 TAB 09/17/18 Albuterol Sulfate* (Ventolin HFA*) 18 Gm Hfa.aer.ad, 2 PUFF INHALATION Q4H, #1 INHALER 09/17/18 Meloxicam* (Mobic*) 15 Mg Tablet, 15 MG PO DAILY, #30 TAB 09/17/18 Cholecalciferol (Vitamin D3) (Vitamin D3) 50,000 Unit Capsule, 53727 UNIT PO EVERY FRIDAY, CAP 09/17/18 Amitriptyline Hcl* (Amitriptyline Hcl*) 25 Mg Tablet, 25 MG PO QHS, #30 TAB 09/17/18 Montelukast Sodium* (Montelukast Sodium*) 10 Mg Tablet, 10 MG PO QHS, #30 TAB 09/17/18 Allergies Allergies: Coded Allergies: hydromorphone (Verified Allergy, Intermediate, ITCHING, 10/13/18) vancomycin (Verified Allergy, Mild, rash, trogh eatch, 10/13/18) celecoxib (Verified Allergy, Unknown, SOB, 10/13/18) cephalexin (Verified Allergy, Unknown, 10/13/18) ciprofloxacin (Verified Allergy, Unknown, RASH, 10/13/18) PMhx/Soc History of Surgery: Yes (APPY., CSECTION, RT BREAST LUMPECTOMY) Anesthesia Reaction: No Hx Neurological Disorder: No Hx Respiratory Disorders: No Hx Cardiac Disorders: Yes (HTN) Hx Psychiatric Problems: No Hx Miscellaneous Medical Probl: No Hx Alcohol Use: No Hx Substance Use: No Hx Tobacco Use: No Smoking Status: Never smoker Physical Exam Vitals Vital Signs Date Temp Pulse Resp B/P (MAP) Pulse Ox O2 O2 Flow FiO2 Time Delivery Rate 10/13/18 88 18 108/63 100 Room Air 19:12 (78) 10/13/18 97.8 98 18 108/62 98 Room Air 17:33 (77) 10/13/18 95 20 95 21 15:57 10/13/18 99.0 104 18 149/68 96 14:31 (95) Physical Exam Const: No acute distress. Head: Atraumatic. Eyes: Normal Conjunctiva. ENT: Normal External Ears, Nose and Mouth. Neck: Full range of motion. No meningismus. Resp: Clear to auscultation bilaterally. Cardio: Mild bilateral expiratory wheezes Abd: Soft, non distended, normal bowel sounds, non tender. Skin: No petechiae or rashes. Back: No midline or flank tenderness. Ext: No cyanosis, or edema. Neur: Awake and alert. No focal deficit Psych: Anxious Result Diagram: 10/13/18 1506 10/13/18 1506 Results 24 hrs Laboratory Tests Test 10/13/18 15:06 White Blood Count 22.0 10^3/ul Red Blood Count 3.78 10^6/ul Hemoglobin 10.4 g/dl Hematocrit 33.1 % Mean Corpuscular Volume 87.6 fl Mean Corpuscular Hemoglobin 27.5 pg Mean Corpuscular Hemoglobin Concent 31.4 g/dl Red Cell Distribution Width 15.9 % Platelet Count 270 10^3/UL Mean Platelet Volume 10.0 fl Immature Granulocytes % 0.900 % Neutrophils % % Segmented Neutrophils % (Manual) 54 % Lymphocytes % % Lymphocytes % (Manual) 36 % Monocytes % % Monocytes % (Manual) 6 % Eosinophils % % Eosinophils % (Manual) 4 % Basophils % % Nucleated Red Blood Cells % 0.0 /100WBC Immature Granulocytes # 0.190 10^3/ul Neutrophils # 10^3/ul Lymphocytes (Manual) 7.9 10^3/ul Lymphocytes # 10^3/ul Monocytes # 10^3/ul Monocytes # (Manual) 1.3 10^3/ul Eosinophils # 10^3/ul Basophils # 10^3/ul Nucleated Red Blood Cells # 10^3/ul Platelet Estimate NORMAL Polychromasia 2+ Anisocytosis 1+ D-Dimer 853.64 ng/ml D-Dimer Comment Urine Color YELLOW Urine Clarity CLEAR Urine pH 6.0 Urine Specific [place] 1.016 Urine Ketones NEGATIVE mg/dL Urine Nitrite NEGATIVE mg/dL Urine Bilirubin NEGATIVE mg/dL Urine Urobilinogen NEGATIVE mg/dL Urine Leukocyte Esterase NEGATIVE [place]/ul Urine Hemoglobin NEGATIVE mg/dL Urine Glucose NEGATIVE mg/dL Urine Total Protein NEGATIVE mg/dl Sodium Level 144 mmol/L Potassium Level 2.7 mmol/L Chloride Level 112 mmol/L Carbon Dioxide Level 22 mmol/L Anion Gap 10 Blood Urea Nitrogen 19 mg/dl Creatinine 0.65 mg/dl Est Glomerular Filtrat Rate mL/min > 60 mL/min Glucose Level 84 mg/dl Calcium Level 8.6 mg/dl Magnesium Level 2.0 mg/dl Total Bilirubin 0.4 mg/dl Direct Bilirubin 0.00 mg/dl Indirect Bilirubin 0.4 mg/dl Aspartate Amino Transf (AST/SGOT) 75 IU/L Alanine Aminotransferase (ALT/SGPT) 51 IU/L Alkaline Phosphatase 186 IU/L Troponin I 0.110 ng/ml B-Type Natriuretic Peptide 526 PG/ML Total Protein 7.0 g/dl Albumin 3.5 g/dl Globulin 3.50 g/dl Albumin/Globulin Ratio 1.00 Current Medications Medications Dose Sig/Nj Start Time Status Last (Trade) Ordered Route PRN Stop Time Admin Dose Reason Admin Sodium 1,000 ml @ Q1H STAT 10/13/18 DC 10/13/18 Chloride 1,000 mls/hr IV 14:44 10/13/18 15:06 15:43 Lorazepam 0.5 mg ONCE ONCE 10/13/18 DC 10/13/18 (Ativan) PO 15:00 10/13/18 15:05 15:01 Albuterol 5 mg ONCE STAT 10/13/18 DC 10/13/18 (Proventil HHN 15:47 10/13/18 15:56 0.083% (Neb)) 15:48 Potassium 100 ml @ ONCE ONCE 10/13/18 DC 10/13/18 Chloride 50 mls/hr IVPB 16:00 10/13/18 16:33 17:59 Potassium 40 meq ONCE STAT 10/13/18 DC 10/13/18 Chloride PO 15:51 10/13/18 16:33 (Klor-Con 20) 15:53 IV Flush 10 ml STK-MED 10/13/18 DC (NS 10 ml) ONCE .ROUTE 17:07 10/13/18 17:08 Sodium 100 ml @ ud STK-MED 10/13/18 DC Chloride ONCE .ROUTE 17:07 10/13/18 17:08 Iohexol 100 ml @ ud STK-MED 10/13/18 DC ONCE .ROUTE 17:10/13/18 17:08 Potassium 40 meq ONCE STAT 10/13/18 DC 10/13/18 Chloride PO 19:18 10/13/18 19:22 (Klor-Con 20) 19:21 Procedures/MDM [place] [address] Radiology Main Line: [phone] DIAGNOSTIC IMAGING REPORT Patient: KADY SOLIS : 1965 Age: 53 Sex: F MR #: [id number] DOS: 10/13/18 1444 Ordering MD: SONIA SHAH MD Location: FTE Room/Bed: PROCEDURE: XR Chest. CLINICAL INDICATION: Chest pain. TECHNIQUE: Single frontal view. COMPARISON: 08/22/2018. FINDINGS: The lungs are clear. The heart size is normal. There is no pleural effusion. There is no pneumothorax. IMPRESSION: 1. Normal chest radiograph. RPTAT: QQ .Sonia Orta MD, MD Date Time Electronically viewed and signed by .Sonia Orta MD, MD on 10/13/2018 15:23 .R/ CC: SONIA SHAH MD [id number] [place] [id number] Radiology Main Line: [phone] DIAGNOSTIC IMAGING REPORT Patient: KADY SOLIS : 1965 Age: 53 Sex: F MR #: [id number] DOS: 10/13/18 0000 Ordering MD: SONIA SHAH MD Location: E/R Room/Bed: PROCEDURE: CTA Chest. CLINICAL INDICATION: Shortness of breath TECHNIQUE: The study was performed utilizing a multidetector CT scanner. Direct spiral 1 axial sections were obtained from the thoracic inlet to the uppe r abdomen with the use of 100 cc of [id number]-300 nonionic intravenous contrast material and reformatted at 3. Coronal, sagittal and 3-D angiographic reformations were obtained. The images were reviewed on a PACS workstation. CT D I 39.4 mCi Dose 720 mGy/cm Individualized dose optimization technique was used for the performance of this exam. This included 1. Automated exposure control. 2. Adjustment of the mA and / or kV according to the patient's size. 3. Use of iterative reconstruction technique. DICOM images are included COMPARISON: CT pulmonary angiogram August 22, 2018 FINDINGS: There is no central or peripheral pulmonary embolism. Main pulmonary artery is of normal caliber. Thoracic aorta is normal with no dissection or aneurysm. No lung infiltrate or mass is seen. There is no hilar or mediastinal adenopathy or mass. No pleural or pericardial effusion is visualized. There is no pneumothorax. No upper abdominal or adrenal mass is present. The osseous structures appear normal. IMPRESSION: No pulmonary embolism. No thoracic aortic aneurysm or dissection. No pneumonia. .aMciej Neff MD, MD Date Time Electronically viewed and signed by .Maciej Neff MD, MD on 10/13/2018 17:35 .A/ CC: SONIA SHAH MD [id number] EKG: Read by emergency physician Rate/Rhythm: Normal Sinus Rhythm 100 beats/min QRS, ST, T-waves: Nonspecific ST abnormality, no T inversion Impression: Abnormal EKG MEDICAL MAKING DECISION: The patient is a 53-year-old female, presenting with ac suzanne asthma, acute hypokalemia, acute leukocytosis most likely due to chronic steroid usage. She is taking prednisone 20 mg daily for the last 3 months for her rheumatoid arthritis. She was treated with 1 L normal saline for acute dehydration, potassium chloride 20 mg and IV and 40 mEQ p.o. x2 over many hours for acute hypokalemia, albuterol 5 mg nebulizer for acute wheezing and Ativan 0.5 mg p.o. for acute anxiety with good response. On multiple reevaluation, she fell well, is stable for outpatient follow-up The differential diagnoses considered include but are not limited to asthma, COPD, pneumonia, pulmonary embolus, pleural effusion, congestive heart failure. Departure Diagnosis: Primary Impression: Acute asthma Additional Impressions: Hypokalemia Leukocytosis Anemia Abnormal LFTs Condition: Good Comments I discussed the findings with the patient. I advised the patient to follow-up with the primary physician in about 1-2 days, sooner if needed and return if any concern. Disclaimer: Inadvertent spelling and grammatical errors are likely due to [employer]/dictation software use and do not reflect on the overall quality of patient care. Also, please note that the electronic time recorded on this note does not necessarily reflect the actual time of the patient encounter. ARCELIA TINEO MD Oct 13, 2018 17:31
[2018-10-13 19:12] VITALS: BP 108/63; PULSE 88; RESP 18
== END 2018-10-13 19:27 | disposition home or self-care (01) ==
LOC: FTE 14:30 → E/R 19:27
DX: J45.901 Unspecified asthma with (acute) exacerbation (principal); I10 Essential (primary) hypertension; E11.9 Type 2 diabetes mellitus without complications; E87.6 Hypokalemia; D72.829 Elevated white blood cell count, unspecified; D64.9 Anemia, unspecified; R94.5 Abnormal results of liver function studies; Z79.4 Long term (current) use of insulin
CPT/HCPCS: 36415; 71045; 71275; 80053; 81003; 83735; 83880; 84484; 85025; 85378; 93005; 94664; 96361; 96365; 96366; 99285; J3480; J7030; Q9967

== ENCOUNTER 2018-10-28 21:13 | Emergency (ER) | payer SELFPAY ==
[~2018-10-28] VITALS: Ht 144.8 cm; Wt 98.0 kg
[2018-10-28 21:40] VITALS: BP 125/70; PULSE 116; RESP 20; Ht 144.8 cm; Wt 98.0 kg
== END 2018-10-29 02:00 | disposition left against medical advice (07) ==
LOC: E/R 21:13
DX: Z53.21 Procedure and treatment not carried out due to patient leaving prior to being seen by health care provider (principal)
CPT/HCPCS: 93005

== ENCOUNTER 2018-11-20 23:54 | Emergency (ER) | payer OTHER ==
[~2018-11-20] VITALS: Ht 144.8 cm; Wt 99.3 kg
[2018-11-21 00:05] VITALS: Ht 144.8 cm; Wt 99.3 kg
[2018-11-21] MEDS ORDERED: morphine 4 MG/ML VIAL IV STA (06:02)
[2018-11-21] MEDS ORDERED: ONDANSETRON 4 MG INJ IV STA (06:02)
[2018-11-21] MEDS ORDERED: LIDOCAINE/MYLANTA 40 ML BTL PO STA (06:02)
[2018-11-21] MEDS ORDERED: BELLADONNA/PHENOBARBITAL TAB PO STA (06:02)
--- NOTE | 2018-11-21 07:33 | ERD ---
ER Documentation Chief Complaint Chief Complaint abdominal pain on and off x 2 weeks HPI This is a 53-year-old female with a past medical history of asthma diabetes gastritis and previous surgical history of appendectomy and section. The patient indicates for the past year she has been experiencing pain in the left flank and left lower quadrant. She indicates she has been on multiple antibiotics to treat an underlying infection. She indicates she is not exactly sure with the infection source was. She indicated that she followed up with her primary care physician Dr. Victor who is her director power and he ordered outpatient ancillary laboratory work on November 16, 2018 5 days prior to arrival. The blood had been reported on November 17, 2018 and the patient was started on penicillin at this time for suspected infection as she states she had leukocytosis and presented with blood work from [facility] with a white blood cell count of 16.5 and an absolute neutrophil count of 11,600. She indicates that the tenderness in the left lower quadrant has significantly worsened over the past 24 hours. She states it is a sharp shooting pain. There is no alleviating or exacerbating factors. She indicates she said no fevers or shaking no chills. She denies any frequency urgency or dysuria. She has had no weight loss. She denies any hemoptysis hematemesis or melanotic stools. She has no chest pain or pressure. She has no shortness of breath at rest or exertion. ROS All systems reviewed and are negative except as per history of present illness. Medications Home Meds Reported Medications Insulin Regular, Human (Humulin R) 100 Unit/1 Ml Vial, 100 UNIT IJ AC A, VIAL 09/17/18 Estradiol* (Estrace* Vag) 0.01%-42.5GM Vaginal Cream..g., 0.25 APPLIC VAG TWICE A WEEK, TUB 09/17/18 Pantoprazole* (Protonix*) 40 Mg Tablet.dr, 40 MG PO DAILY, TAB 09/17/18 Polyethylene Glycol* (Miralax*) 17 Gm Powd.pack, 17 GM PO DAILY, #30 PACKET 09/17/18 Mometasone-Formoterol (Dulera) 100-5 Mcg - 13 Gm Hfa.aer.ad, 2 PUFFS INHALATION BID, #1 INHALER 09/17/18 Prednisone* (Prednisone*) 10 Mg Tab, 10 MG PO DAILY, TAB 09/17/18 Glimepiride* (Glimepiride*) 4 Mg Tablet, 4 MG PO WITH BREAKFAST DINNE, TAB 09/17/18 Alendronate Sodium* (Fosamax*) 70 Mg Tablet, 70 MG PO EVERY FRIDAY, #4 TAB 09/17/18 Atorvastatin* (Atorvastatin*) 40 Mg Tablet, 40 MG PO QHS, #30 TAB 09/17/18 Ferrous Sulfate* (Ferrous Sulfate*) 325 Mg Tabec, 325 MG PO DAILY, TAB 09/17/18 Captopril* (Captopril*) 25 Mg Tablet, 25 MG PO BID, #60 TAB 09/17/18 Estradiol (Estradiol) 0.5 Mg Tablet, 0.5 MG PO DAILY, TAB 09/17/18 Medroxyprogesterone Acetate* (Medroxyprogesterone Acetate*) 2.5 Mg Tablet, 2.5 MG PO DAILY, TAB 09/17/18 Omeprazole* (Omeprazole*) 40 Mg Capsule.dr, 40 MG PO DAILY, #30 CAP 09/17/18 Metformin Hcl* (Metformin Hcl*) 1,000 Mg Tablet, 1000 MG PO WITH BREAKFAST DINNE, #60 TAB 09/17/18 Duloxetine Hcl* (Duloxetine Hcl*) 60 Mg Capsule.dr, 60 MG PO DAILY, #30 CAP 09/17/18 Gabapentin* (Gabapentin*) 600 Mg Tablet, 1200 MG PO QHS, #180 TAB 09/17/18 Albuterol Sulfate* (Ventolin HFA*) 18 Gm Hfa.aer.ad, 2 PUFF INHALATION Q4H, #1 INHALER 09/17/18 Meloxicam* (Mobic*) 15 Mg Tablet, 15 MG PO DAILY, #30 TAB 09/17/18 Cholecalciferol (Vitamin D3) (Vitamin D3) 50,000 Unit Capsule, 65072 UNIT PO EVERY FRIDAY, CAP 09/17/18 Amitriptyline Hcl* (Amitriptyline Hcl*) 25 Mg Tablet, 25 MG PO QHS, #30 TAB 09/17/18 Montelukast Sodium* (Montelukast Sodium*) 10 Mg Tablet, 10 MG PO QHS, #30 TAB 09/17/18 Allergies Allergies: Coded Allergies: hydromorphone (Verified Allergy, Intermediate, ITCHING, 10/13/18) vancomycin (Verified Allergy, Mild, rash, trogh eatch, 10/13/18) celecoxib (Verified Allergy, Unknown, SOB, 10/13/18) cephalexin (Verified Allergy, Unknown, 10/13/18) ciprofloxacin (Verified Allergy, Unknown, RASH, 10/13/18) PMhx/Soc History of Surgery: Yes (APPY., CSECTION, RT BREAST LUMPECTOMY) Anesthesia Reaction: No Hx Neurological Disorder: No Hx Respiratory Disorders: No Hx Cardiac Disorders: Yes (HTN) Hx Psychiatric Problems: No Hx Miscellaneous Medical Probl: No Hx Alcohol Use: No Hx Substance Use: No Hx Tobacco Use: No Physical Exam Vitals Vital Signs Date Temp Pulse Resp B/P (MAP) Pulse Ox O2 O2 Flow FiO2 Time Delivery Rate 11/21/18 90 20 116/63 99 Room Air 07:51 (80) 11/21/18 99.9 100 20 122/60 97 00:05 (80) Physical Exam Constitutional:Well-developed. Well-nourished. HEENT:Normocephalic. Atraumatic.Pupils were equal round reactive to light. Moist mucous membranes.No tonsillar exudates. Neck: No nuchal rigidity. No lymphadenopathy. No posterior cervical spine tenderness or step-offs. Respiratory: Not using accessory muscles of respiration.Lungs were clear to auscultation bilaterally. No rhonchi. No rales. No wheezing. Cardiovascular: Regular rate regular rhythm.No murmurs. No rubs were appreci ated.S1, S2 normal. Distal pulses are palpable 2+ bilaterally. GI: Abdomen was soft. Left lower quadrant tenderness. Non Distended. No pulsatile abdominal masses or bruits. No rebound. No guarding. Bowel sounds were present and normal. Muscle skeletal: Full range of motion of both the upper and lower extremities bilaterally.Normal muscle tone.No assymetrical calf tenderness or swelling. Skin: No petechia, no purpura. No lesions on the palms or the soles of the feet. No maculopapular rash. NEURO: Patient was alert, awake, orientated x3.No facial droop. Gait observed and normal with no ataxia.Speech had regular rate and rhythm. No focal neurological deficits. Result Diagram: 11/21/18 0724 11/21/18 0724 Results 24 hrs Laboratory Tests Test 11/21/18 07:24 11/21/18 09:04 White Blood Count 12.8 10^3/ul Red Blood Count 4.22 10^6/ul Hemoglobin 11.6 g/dl Hematocrit 36.4 % Mean Corpuscular Volume 86.3 fl Mean Corpuscular Hemoglobin 27.5 pg Mean Corpuscular Hemoglobin Concent 31.9 g/dl Red Cell Distribution Width 14.9 % Platelet Count 253 10^3/UL Mean Platelet Volume 10.2 fl Immature Granulocytes % 0.500 % Neutrophils % 59.6 % Lymphocytes % 29.0 % Monocytes % 6.9 % Eosinophils % 3.5 % Basophils % 0.5 % Nucleated Red Blood Cells % 0.0 /100WBC Immature Granulocytes # 0.070 10^3/ul Neutrophils # 7.6 10^3/ul Lymphocytes # 3.7 10^3/ul Monocytes # 0.9 10^3/ul Eosinophils # 0.5 10^3/ul Basophils # 0.1 10^3/ul Nucleated Red Blood Cells # 0.0 10^3/ul Prothrombin Time 13.1 Sec Prothrombin Time Ratio 1.0 INR International Normalized Ratio 0.98 Activated Partial Thromboplast Time 24.9 Sec Sodium Level 142 mmol/L Potassium Level 3.9 mmol/L Chloride Level 108 mmol/L Carbon Dioxide Level 28 mmol/L Anion Gap 6 Blood Urea Nitrogen 10 mg/dl Creatinine 0.67 mg/dl Est Glomerular Filtrat Rate mL/min > 60 mL/min Glucose Level 146 mg/dl Calcium Level 8.9 mg/dl Total Bilirubin 0.3 mg/dl Direct Bilirubin 0.00 mg/dl Indirect Bilirubin 0.3 mg/dl Aspartate Amino Transf (AST/SGOT) 38 IU/L Alanine Aminotransferase (ALT/SGPT) 33 IU/L Alkaline Phosphatase 169 IU/L Troponin I < 0.012 ng/ml Total Protein 7.3 g/dl Albumin 3.5 g/dl Globulin 3.80 g/dl Albumin/Globulin Ratio 0.92 Amylase Level 74 U/L Lipase 64 U/L Urine Color STRAW Urine Clarity CLEAR Urine pH 6.0 Urine Specific Wilson 1.020 Urine Ketones NEGATIVE mg/dL Urine Nitrite NEGATIVE mg/dL Urine Bilirubin NEGATIVE mg/dL Urine Urobilinogen NEGATIVE mg/dL Urine Leukocyte Esterase NEGATIVE Linda/ul Urine Hemoglobin NEGATIVE mg/dL Urine Glucose NEGATIVE mg/dL Urine Total Protein NEGATIVE mg/dl Current Medications Medications Dose Sig/Nj Start Time Status Last (Trade) Ordered Route PRN Stop Time Admin Dose Reason Admin Morphine 4 mg ONCE STAT 11/21/18 DC 11/21/18 Sulfate IV 06:02 07:44 (morphine) 11/21/18 06:04 Ondansetron 4 mg ONCE STAT 11/21/18 DC 11/21/18 HCl (Zofran IV 06:02 07:42 Inj) 11/21/18 06:04 40 ml ONCE STAT 11/21/18 DC 11/21/18 Miscellaneous PO 06:02 07:42 Medication 11/21/18 06:04 (Gi Cocktail (2)) Belladonna/ 2 tab ONCE STAT 11/21/18 DC 11/21/18 Phenobarbital PO 06:02 07:42 () 11/21/18 06:04 Iohexol 150 ml STK-MED 11/21/18 DC (Omnipaque ONCE .ROUTE 08:13 300mg/ ml) 11/21/18 08:14 Sodium 100 ml @ ud STK-MED 11/21/18 DC Chloride ONCE .ROUTE 08:13 11/21/18 08:14 Procedures/MDM This patient presented to the emergency department with left lower quadrant pain and abnormal ancillary laboratory work. The patient had IV access established by nursing staff she received intravenous morphine and Zofran for analgesia control. The patient had no evidence of urinary tract infection. The CT scan of the patient's abdomen showed no evidence of diverticulitis or perforation. T he patient had leukocytosis with white blood count of 12.8. The patient's neutrophil count today was 7.6. I indicated to the patient that her significant abnormal labs could have been a result of a lab error. However the patient was instructed to continue to take her antibiotics which she had been prescribed by her director power. She was provided copies of all of her ancillary laboratory work and the patient was pain-free at the time of discharge. No signs of atypical myocardial fraction. 12 Lead EKG tracing ordered and reviewed by myself showed: Normal sinus rhythm of 86 bpm and no arrhythmia. MA interval normal. QRS duration normal. No ST segment elevation No ST segment depression. No changes consistent with acute ischemia. The patient was discharged home in fair condition. They were instructed to return to the emergency department at any time if there was any worsening of their condition. The patient stated they would follow up with their PCP in the next 24-48 hours to initiate a suitable medication regimen under the care of their PCP as well as to allow their PCP to monitor any drug reactions. The patient was discharged home with prescriptions after they gave informed consent to the new medication. They were also fully informed by myself on the adverse effects and adverse drug interactions in order to provide adequate safeguards to prevent possible adverse reactions to medications. Departure Diagnosis: Primary Impression: Abdominal pain Condition: PRIYANKA Wu MD Nov 21, 2018 07:33
[2018-11-21] MEDS ORDERED: IOHEXOL 300MG/ML 150 ML BTL ONE (08:13)
[2018-11-21] MEDS ORDERED: SOD CHLORIDE 0.9% 100 ML ONE (08:13)
[2018-11-21 10:54] VITALS: BP 121/64; PULSE 92; RESP 20
== END 2018-11-21 10:55 | disposition home or self-care (01) ==
LOC: E/R 23:54
DX: R10.9 Unspecified abdominal pain (principal); E11.9 Type 2 diabetes mellitus without complications; J45.909 Unspecified asthma, uncomplicated; I10 Essential (primary) hypertension; Z79.84 Long term (current) use of oral hypoglycemic drugs
CPT/HCPCS: 36415; 74177; 80053; 81003; 82150; 83690; 84484; 85025; 85610; 85730; 87040; 87086; 93005; 96374; 96375; J2270; J2405; Q9967; Z7502; Z7610

== ENCOUNTER 2018-12-30 06:02 | Day surgery (SDC) | payer OTHER ==
[~2018-12-30] VITALS: Ht 149.9 cm; Wt 98.8 kg
[~2018-12-30 06:02] MED LIST changes: +PHEN-538 PO; +SULF1TAB31 PO
[2018-12-30 07:23] VITALS: Ht 149.9 cm; Wt 98.8 kg
[2018-12-30] MEDS ORDERED: PROPOFOL 40 ML ONE (07:50)
[2018-12-30] MEDS ORDERED: LIDOCAINE 2% (SDV) 5 ML INJ ONE (07:50)
[2018-12-30 07:52] VITALS: BP 113/72; PULSE 86; RESP 18
[2018-12-30 08:15] VITALS: BP 128/76; PULSE 84; RESP 18
[2018-12-30 08:43] VITALS: BP 109/70; PULSE 78; RESP 14
== END 2018-12-30 11:41 | disposition home or self-care (01) ==
LOC: GIL 06:02
PROVIDERS: ATTEND Internal Medicine Gastroenterology
DX: D12.3 Benign neoplasm of transverse colon (principal); K64.9 Unspecified hemorrhoids; E11.9 Type 2 diabetes mellitus without complications; J45.909 Unspecified asthma, uncomplicated; Z79.84 Long term (current) use of oral hypoglycemic drugs; Z79.4 Long term (current) use of insulin
CPT/HCPCS: 45380; 82962; 88305; Z7610

== ENCOUNTER 2019-01-15 15:59 | Emergency (ER) | payer OTHER ==
[~2019-01-15] VITALS: Ht 149.9 cm; Wt 98.7 kg
[~2019-01-15 15:59] MED LIST changes: -GLIM4TAB PO; -METF100010 PO
[2019-01-15 16:15] VITALS: Ht 149.9 cm; Wt 98.7 kg
[2019-01-15] MEDS ORDERED: SODIUM CHLORIDE 0.9% 1L BAG IV* STA (16:28)
[2019-01-15] MEDS ORDERED: morphine 4 MG/ML VIAL IV STA ×2 (16:35→19:56)
[2019-01-15] MEDS ORDERED: ONDANSETRON 4 MG INJ IV STA ×2 (16:35→19:56)
[2019-01-15] MEDS ORDERED: DIPHENHYDRAMINE 50 MG INJ IV ONE (17:00)
[2019-01-15] MEDS ORDERED: ERTAPENEM SODIUM 1 GM in SOD CHLORIDE 0.9% 100 ML IVPB ONE (17:00)
[2019-01-15] MEDS ORDERED: IODIXANOL LOCM 100 ML BTL ONE (17:15)
[2019-01-15] MEDS ORDERED: SOD CHLORIDE 0.9% 100 ML ONE (17:15)
[2019-01-15 20:44] VITALS: BP 138/82; PULSE 95; RESP 16
== END 2019-01-15 20:45 | disposition home or self-care (01) ==
LOC: E/R 15:59
DX: N30.00 Acute cystitis without hematuria (principal); J45.909 Unspecified asthma, uncomplicated; E66.9 Obesity, unspecified; E11.9 Type 2 diabetes mellitus without complications; Z68.41 Body mass index [BMI] 40.0-44.9, adult; Z79.4 Long term (current) use of insulin
CPT/HCPCS: 71045; 74177; 80053; 81001; 83605; 84484; 85025; 85610; 85730; 87040; 87086; 96374; 96375; 96376; J1200; J1335; J2270; J2405; J7030; Q9967; Z7502; Z7610; 93005